=== PATIENT | female | born 1935 | race Caucasian/White ===

== ENCOUNTER → 2016-11-14 | Outpatient (CLI) | payer MEDICARE ==
--- NOTE | 2016-11-15 11:26 | ECHOF ---
Referral Reason:I35.0 aortic stenosis R00.2 palpitations MEASUREMENTS -------- HEIGHT: 132.1 cm WEIGHT: 81.7 kg BP: IVSd: 1.6 cm (0.6 - 1.1) LVIDd: 3.3 cm (3.9 - 5.3) LVPWd: 1.6 cm (0.6 - 1.1) IVSs: 1.9 cm LVIDs: 2.4 cm LVPWs: 1.6 cm Ao Diam: 0.5 cm (2.0 - 3.7) AV Cusp: 2.0 cm (1.5 - 2.6) LA Diam: 2.5 cm (2.7 - 3.8) MV EXCURSION: 5.900 mm (> 18.000) MV EF SLOPE: 26 mm/s (70 - 150) EPSS: 0.9 cm MV E Amaury: 1.30 m/s MV DecT: 199 ms MV A Amaury: 1.19 m/s MV E/A Ratio: 1.09 AV maxP.59 mmHg AV meanP.89 mmHg AR PHT: 346 ms RAP: 5.00 mmHg RVSP: 30.29 mmHg FINDINGS -------- Sinus rhythm. This was a technically good study. There is mild concentric left ventricular hypertrophy. Overall left ventricular systolic function is normal with, an EF between 55 - 60 %. The right ventricle is normal in size and function. The left atrium is normal in size. The right atrium is normal in size. Aortic valve is trileaflet and is moderately thickened. There is mild aortic regurgitation. There is moderate aortic stenosis present. Peak/mean gradient across the Aortic Valve is 26.59mmHg / 18.89mmHg. The mitral valve leaflets are mildly thickened. Mild mitral annular calcification present. Mild tricuspid regurgitation present. The right ventricular systolic pressure, as measured by Doppler, is 30.29mmHg. Pulmonic valve appears structurally normal. The aortic root, ascending aorta and aortic arch are normal. The pericardium is normal. CONCLUSIONS -------- 1. Sinus rhythm. 2. There is moderate aortic stenosis present. 3. Peak/mean gradient across the Aortic Valve is 26.59mmHg / 18.89mmHg. 4. The mitral valve leaflets are mildly thickened. 5. Mild mitral annular calcification present. 6. Mild tricuspid regurgitation present. 7. The right ventricular systolic pressure, as measured by Doppler, is 30.29mmHg. 8. Pulmonic valve appears structurally normal. 9. The aortic root, ascending aorta and aortic arch are normal. 10. The pericardium is normal. 11. This was a technically good study. 12. There is mild concentric left ventricular hypertrophy. 13. Overall left ventricular systolic function is normal with, an EF between 55 - 60 %. 14. The right ventricle is normal in size and function. 15. The left atrium is normal in size. 16. The right atrium is normal in size. 17. Aortic valve is trileaflet and is moderately thickened. 18. There is mild aortic regurgitation. TREATING ENGINEER: Ginna Pisano RDCS
== END | disposition home or self-care (01) ==
LOC: RADECHMAIN 12:42
PROVIDERS: ATTEND Internal Medicine
DX: I08.3 Combined rheumatic disorders of mitral, aortic and tricuspid valves (principal)
CPT/HCPCS: 93270; 93271; 93306

== ENCOUNTER → 2016-12-06 | Outpatient (CLI) | payer MEDICARE ==
[2016-12-06 08:22] LABS: CH 29.8; CHCM 32.5; HDW 2.32; HGB 13.6 gm/dL (11.4-16.0); MCH 29.8 pg (25.0-35.0); MCHC 32.4 g/dL (31.0-37.0); MCV 91.9 fL (80.0-100.0); Mean Platelet Volume 8.2; RBC 4.57 m/uL (3.80-5.40); WBC 6.5 k/uL (3.8-10.6)
[2016-12-06 08:35] LABS: ALT 38 U/L (9-52); AST 24 U/L (14-36); Alkaline Phosphatase 112 U/L (38-126); Anion Gap 12 mmol/L; Blood Urea Nitrogen 16 mg/dL (7-17); Calcium 9.7 mg/dL (8.4-10.2); Carbon Dioxide 28 mmol/L (22-30); Chloride 103 mmol/L (98-107); Cholesterol 155 mg/dL (<200); Glucose 156 mg/dL (74-99); HDL Cholesterol 59 mg/dL (40-60); Non-African American GFR(MDRD) >60 (>60 ml/min/1.73 sqM); Sodium 143 mmol/L (137-145); Total Bilirubin 0.5 mg/dL (0.2-1.3); Total Protein 7.4 g/dL (6.3-8.2); Triglycerides 190 mg/dL (<150)
[2016-12-06 12:46] LABS: Hemoglobin A1C 7.9 % (4.2-6.1)
== END | disposition home or self-care (01) ==
LOC: LABWHC1 07:11
PROVIDERS: ATTEND Internal Medicine Cardiovascular Disease
DX: E78.5 Hyperlipidemia, unspecified (principal); R06.09 Other forms of dyspnea; I25.10 Atherosclerotic heart disease of native coronary artery without angina pectoris
CPT/HCPCS: 36415; 80053; 80061; 83036; 85027

== ENCOUNTER → 2017-03-08 | Outpatient (CLI) | payer MEDICARE ==
[2017-03-08 08:27] LABS: Cholesterol 254 mg/dL (<200); HDL Cholesterol 54 mg/dL (40-60); Triglycerides 259 mg/dL (<150)
== END | disposition home or self-care (01) ==
LOC: LABWHC1 07:23
PROVIDERS: ATTEND Internal Medicine Cardiovascular Disease
DX: E78.5 Hyperlipidemia, unspecified (principal)
CPT/HCPCS: 36415; 80061

== ENCOUNTER 2017-11-19 16:23 | Emergency (ER) | payer MEDICARE ==
[2017-11-19 16:32] VITALS: RESP 18
--- NOTE | 2017-11-19 17:00 | ED ---
General Adult HPI - General Chief complaint: Chest Pain Stated complaint: Chest Pain Time Seen by Provider: 11/19/17 16:39 Source: patient, family, RN notes reviewed, old records reviewed Mode of arrival: wheelchair Limitations: no limitations - History of Present Illness Initial comments: 82-year-old female presents for evaluation of chest pain. Patient states her pain began in her anterior chest after a fall. Patient fell yesterday evening while going outside to adjust a trash can. She slipped on the ice. Patient did strike her head, she was unconscious for 5-10 minutes. She is currently on baby aspirin and Plavix for history of CAD status post stenting. Patient did not call 911, she slept throughout the night at home. She informed her family members today and fall and they urged her to come the emergency department for evaluation. Patient has had no focal weakness. No headache. She does have ecchymosis around her right eye. No vision changes. She had a bloody nose at the time of the fall but this has subsided. Chest pain is sharp in nature, worse with movement. No dull aching or chest pressure. Patient denies any back pain. Denies abdominal pain. Denies lower extremity pain. Denies neck pain. Patient denied any preceding chest pain prior to the fall, no palpitations. - Related Data Home Medications Medication Instructions Recorded Confirmed Carvedilol [Coreg] 6.25 mg PO BID 11/19/17 11/19/17 Clopidogrel [Plavix] 75 mg PO DAILY 11/19/17 11/19/17 Dexlansoprazole [Dexilant] 60 mg PO DAILY 11/19/17 11/19/17 Isosorbide Mononitrate ER [Imdur] 15 mg PO DAILY 11/19/17 11/19/17 Losartan [Cozaar] 25 mg PO DAILY 11/19/17 11/19/17 Naproxen [Naprosyn] 500 mg PO DAILY PRN 11/19/17 11/19/17 Nitroglycerin [Nitroglycerin 1 spray TRANSLINGU Q5M PRN 11/19/17 11/19/17 400MCG [place]] metFORMIN HCL [Glucophage] 500 mg PO BID 11/19/17 11/19/17 Allergies Allergy/AdvReac Type Severity Reaction Status Date / Time butorphanol [From Stadol] Allergy Unknown Verified 11/19/17 16:33 iodine Allergy Unknown Verified 11/19/17 16:33 meperidine [From Demerol] Allergy Unknown Verified 11/19/17 16:33 morphine Allergy Anaphylaxis Verified 11/19/17 16:33 Review of Systems ROS Statement: Those systems with pertinent positive or pertinent negative responses have been documented in the HPI. ROS Other: All systems not noted in ROS Statement are negative. Past Medical History Past Medical History: Diabetes Mellitus History of Any Multi-Drug Resistant Organisms: None Reported Past Surgical History: Appendectomy, Back Surgery, Cholecystectomy, Heart Catheterization With Stent, Hernia Repair, Hysterectomy Additional Past Surgical History / Comment(s): stents x4 Past Psychological History: No Psychological Hx Reported Smoking Status: Never smoker Past Alcohol Use History: None Reported Past Drug Use History: None Reported General Exam Limitations: no limitations General appearance: alert, in no apparent distress Head exam: Present: atraumatic, normocephalic Eye exam: Present: periorbital swelling, periorbital tenderness, other (Right periorbital ecchymosis). Absent: PERRL, EOMI ENT exam: Present: TM's normal bilaterally, other (No epistaxis, no septal hematoma) Neck exam: Present: normal inspection, full ROM. Absent: tenderness, meningismus Respiratory exam: Present: normal lung sounds bilaterally, chest wall tenderness (Right anterior chest wall tenderness with bruising over the right breast). Absent: respiratory distress Cardiovascular Exam: Present: regular rate, normal rhythm GI/Abdominal exam: Present: soft. Absent: distended, tenderness Extremities exam: Present: normal inspection, full ROM. Absent: tenderness Back exam: Present: normal inspection, full ROM. Absent: tenderness, paraspinal tenderness, vertebral tenderness Neurological exam: Present: alert, oriented X3, CN II-XII intact. Absent: motor sensory deficit Psychiatric exam: Present: normal affect, normal mood Skin exam: Present: warm, dry, intact. Absent: cyanosis, diaphoretic Course Vital Signs 11/19/17 16:27 Temperature 97.7 F Pulse Rate 94 Respiratory 18 Rate Blood Pressure 126/64 O2 Sat by Pulse 96 Oximetry Medical Decision Making - Medical Decision Making 82-year-old female presenting with chest pain status post fall 22 hours prior to evaluation. Patient has ecchymosis to the right eye, no bony inability appreciated on exam. Extraocular motions are intact. Patient is alert and oriented 4, neurologic exam is nonfocal. She does have tenderness to the right chest wall and bruising to the right breast. No C-spine tenderness. No pain in the back, abdomen, or lower extremities. She does have some mild tenderness to the right wrist. Wrist x-rays obtained, there is concern for scapholunate tear as well as arthritis. Patient has no tenderness over the scaphoid. She is placed in a wrist splint for comfort. CT brain negative for intracranial hemorrhage. CT cervical spine negative for fracture subluxation. CT of facial bones show soft tissue swelling around the right orbit with no fracture or acute abnormality. There is a transverse processes and maxillary spine, patient does not have tenderness over the maxillary spine. Chest x-ray for rib fracture or pneumothorax. Pelvis x-ray is negative for fracture dislocation. Laboratory studies include CBC, CMP, urinalysis, troponin are all unremarkable. EKG shows normal sinus rhythm with no signs of ischemia. She states fall was approximately 22 hours ago. She is on aspirin and Plavix, she will be observed by her family members over the next 24 hours. They will return to the emergency Department if any worsening or changing symptoms. - Lab Data Result diagrams: 11/19/17 17:11 11/19/17 17:11 Lab Results 11/19/17 11/19/17 11/19/17 Range/Units 17:11 17:11 17:11 WBC 6.4 (3.8-10.6) k/uL RBC 4.29 (3.80-5.40) m/uL Hgb 12.4 (11.4-16.0) gm/dL Hct 38.8 (34.0-46.0) % MCV 90.5 (80.0-100.0) fL MCH 28.9 (25.0-35.0) pg MCHC 32.0 (31.0-37.0) g/dL RDW 13.7 (11.5-15.5) % Plt Count 266 (150-450) k/uL Neutrophils % 68 % Lymphocytes % 23 % Monocytes % 6 % Eosinophils % 2 % Basophils % 1 % Neutrophils # 4.4 (1.3-7.7) k/uL Lymphocytes # 1.5 (1.0-4.8) k/uL Monocytes # 0.4 (0-1.0) k/uL Eosinophils # 0.1 (0-0.7) k/uL Basophils # 0.0 (0-0.2) k/uL PT (9.0-12.0) sec INR (<1.2) APTT (22.0-30.0) sec Sodium (137-145) mmol/L Potassium (3.5-5.1) mmol/L Chloride (98-107) mmol/L Carbon Dioxide (22-30) mmol/L Anion Gap mmol/L BUN (7-17) mg/dL Creatinine (0.52-1.04) mg/dL Est GFR (MDRD) Af Amer (>60 ml/min/1.73 sqM) Est GFR (MDRD) Non-Af (>60 ml/min/1.73 sqM) Glucose (74-99) mg/dL Calcium (8.4-10.2) mg/dL Total Bilirubin (0.2-1.3) mg/dL AST (14-36) U/L ALT (9-52) U/L Alkaline Phosphatase (38-126) U/L Total Creatine Kinase 131 (30-135) U/L CK-MB (CK-2) 2.1 (0.0-2.4) ng/mL CK-MB (CK-2) Rel Index 1.6 Troponin I <0.012 (0.000-0.034) ng/mL Total Protein (6.3-8.2) g/dL Albumin (3.5-5.0) g/dL Urine Color Urine Appearance (Clear) Urine pH (5.0-8.0) Ur Specific [place] (1.001-1.035) Urine Protein (Negative) Urine Glucose (UA) (Negative) Urine Ketones (Negative) Urine Blood (Negative) Urine Nitrite (Negative) Urine Bilirubin (Negative) Urine Urobilinogen (<2.0) mg/dL Ur Leukocyte Esterase (Negative) Urine RBC (0-5) /hpf Urine WBC (0-5) /hpf Ur Squamous Epith Cells (0-4) /hpf Urine Bacteria (None) /hpf Hyaline Casts (0-2) /lpf Urine Mucus (None) /hpf Blood Type O Positive Blood Type Recheck No Antibody Screen NEGATIVE Spec Expiration Date 11/22/2017 - 231011/19/17 11/19/17 11/19/17 Range/Units 17:11 17:11 18:16 WBC (3.8-10.6) k/uL RBC (3.80-5.40) m/uL Hgb (11.4-16.0) gm/dL Hct (34.0-46.0) % MCV (80.0-100.0) fL MCH (25.0-35.0) pg MCHC (31.0-37.0) g/dL RDW (11.5-15.5) % Plt Count (150-450) k/uL Neutrophils % % Lymphocytes % % Monocytes % % Eosinophils % % Basophils % % Neutrophils # (1.3-7.7) k/uL Lymphocytes # (1.0-4.8) k/uL Monocytes # (0-1.0) k/uL Eosinophils # (0-0.7) k/uL Basophils # (0-0.2) k/uL PT 10.2 (9.0-12.0) sec INR 1.0 (<1.2) APTT 21.4 L (22.0-30.0) sec Sodium 142 (137-145) mmol/L Potassium 4.0 (3.5-5.1) mmol/L Chloride 107 (98-107) mmol/L Carbon Dioxide 23 (22-30) mmol/L Anion Gap 12 mmol/L BUN 22 H (7-17) mg/dL Creatinine 0.80 (0.52-1.04) mg/dL Est GFR (MDRD) Af Amer >60 (>60 ml/min/1.73 sqM) Est GFR (MDRD) Non-Af >60 (>60 ml/min/1.73 sqM) Glucose 220 H (74-99) mg/dL Calcium 9.3 (8.4-10.2) mg/dL Total Bilirubin 0.2 (0.2-1.3) mg/dL AST 24 (14-36) U/L ALT 31 (9-52) U/L Alkaline Phosphatase 111 (38-126) U/L Total Creatine Kinase (30-135) U/L CK-MB (CK-2) (0.0-2.4) ng/mL CK-MB (CK-2) Rel Index Troponin I (0.000-0.034) ng/mL Total Protein 6.2 L (6.3-8.2) g/dL Albumin 3.6 (3.5-5.0) g/dL Urine Color Yellow Urine Appearance Cloudy H (Clear) Urine pH 5.5 (5.0-8.0) Ur Specific [place] 1.028 (1.001-1.035) Urine Protein 1+ H (Negative) Urine Glucose (UA) 4+ H (Negative) Urine Ketones Trace H (Negative) Urine Blood Negative (Negative) Urine Nitrite Negative (Negative) Urine Bilirubin Negative (Negative) Urine Urobilinogen 3.0 (<2.0) mg/dL Ur Leukocyte Esterase Negative (Negative) Urine RBC 1 (0-5) /hpf Urine WBC 1 (0-5) /hpf Ur Squamous Epith Cells 11 H (0-4) /hpf Urine Bacteria Moderate H (None) /hpf Hyaline Casts 1 (0-2) /lpf Urine Mucus Few H (None) /hpf Blood Type Blood Type Recheck Antibody Screen Spec Expiration Date Critical Care Time Critical Care Time: Yes Total Critical Care Time: 35 Disposition Clinical Impression: Costalchondritis, Head injury, Concussion Disposition: HOME SELF-CARE Condition: Good Instructions: Concussion (ED), Chest Wall Pain (ED) Referrals: Dandre Jacob MD [Primary Care Provider] - 1-2 days Time of Disposition: 18:45
[2017-11-19 17:39] LABS: Basophils % (A) 1 %; Eosinophils # (A) 0.1 k/uL (0-0.7); Eosinophils % (A) 2 %; HCT 38.8 % (34.0-46.0); HGB 12.4 gm/dL (11.4-16.0); Lymphocytes # (A) 1.5 k/uL (1.0-4.8); Lymphocytes % (A) 23 %; MCH 28.9 pg (25.0-35.0); MCV 90.5 fL (80.0-100.0); Mean Platelet Volume 8.3; Monocytes # (A) 0.4 k/uL (0-1.0); Monocytes % (A) 6 %; Neutrophils # (A) 4.4 k/uL (1.3-7.7); Neutrophils % (A) 68 %; Platelet Count 266 k/uL (150-450); RBC 4.29 m/uL (3.80-5.40); RDW 13.7 % (11.5-15.5); WBC 6.4 k/uL (3.8-10.6)
[2017-11-19 17:46] LABS: ALT 31 U/L (9-52); AST 24 U/L (14-36); Albumin 3.6 g/dL (3.5-5.0); Alkaline Phosphatase 111 U/L (38-126); Anion Gap 12 mmol/L; Blood Urea Nitrogen 22 mg/dL (7-17); Calcium 9.3 mg/dL (8.4-10.2); Carbon Dioxide 23 mmol/L (22-30); Chloride 107 mmol/L (98-107); Glucose 220 mg/dL (74-99); Sodium 142 mmol/L (137-145); Total Bilirubin 0.2 mg/dL (0.2-1.3); Total Protein 6.2 g/dL (6.3-8.2)
[2017-11-19 17:51] LABS: Prothrombin Time 10.2 sec (9.0-12.0)
--- NOTE | 2017-11-19 17:57 | CT ---
EXAMINATION TYPE: CT brain cspine wo con, CT facial bones wo con DATE OF EXAM: 11/19/2017 COMPARISON: NONE HISTORY: Fell, bruised right eye and lower lip CT DLP: 1536.20 (accession [id number]), 603.0 (accession [id number]) mGycm. Automated Exposure Control fo r Dose Reduction was Utilized. TECHNIQUE: CT scan of the head and cervical spine are performed without contrast. CT of the facial edison kristyn is also performed without contrast. FINDINGS: Mild right periorbital preseptal soft tissue swelling is noted. Drusen bodies are seen bi laterally. Globes are intact. Ocular lenses are surgically absent. There is no acute intracranial hem orrhage or midline shift identified. There is diffuse ventricular and sulcal prominence consistent wi th diffuse age-related cerebral atrophy. There is low-attenuation in the periventricular white matte r consistent with chronic small vessel ischemic change. Atherosclerosis is seen in the intracranial v asculature. Cervical spine is visualized in its entirety from C1 through upper thoracic levels and demonstrates s atisfactory alignment without evidence of acute fracture or dislocation. Prevertebral soft tissue ap pears within normal limits. The C1-C2 articulation is unremarkable. Multilevel posterior disc osteop hyte complexes, uncovertebral hypertrophy, and facet arthropathy are seen within the cervical spine. There is a focal reversal of the usual cervical lordosis at C3-6. Some motion and extensive degenerat leslei changes at C5-C7 are seen although no gross evidence of acute fracture is noted. No prevertebral soft tissue swelling. Degenerative narrowing of the atlantodental interval is present. Multilevel spi nal canal stenosis from C4 through 6 is seen. 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 Paranasal sinuses and m astoid air cells are well aerated. External auditory canals are patent and middle air cavities are wi thout fluid. There is a transversely oriented acute nondisplaced fracture of the maxillary spine. Sheth ashley Propecia are intact. Mandibular condyles are located within the mandibular fossa. There is leftwa rd nasal septal deviation. Orbits are intact. Pterygoid plates are unremarkable. IMPRESSION: 1. There is no acute fracture or dislocation evident in the cervical spine. Multilevel degenerative c hanges including focal reversal of the usual cervical cord lordosis and spinal canal stenosis from C4 through C6 are noted. 2. No acute intracranial hemorrhage, mass effect, or midline shift is seen. Diffuse age-related cereb ral atrophy and chronic small vessel ischemic change noted. 3. Acute transversely oriented nondisplaced fracture of the maxillary spine. 4. Right preseptal periorbital soft tissue swelling without evidence of globe rupture or post septal soft tissue swelling. No orbital fracture.
[2017-11-19 17:59] LABS: Creatine Kinase 131 U/L (30-135)
[2017-11-19 18:08] LABS: Partial Thromboplastin Time 21.4 sec (22.0-30.0)
[2017-11-19 18:11] LABS: Creatine Kinase MB 2.1 ng/mL (0.0-2.4); Troponin I <0.012 ng/mL (0.000-0.034)
--- NOTE | 2017-11-19 18:14 | XR ---
EXAMINATION TYPE: XR chest 2V DATE OF EXAM: 11/19/2017 COMPARISON: 09/22/2010 HISTORY: Fall and chest pain TECHNIQUE: Frontal and lateral views of the chest are obtained. FINDINGS: There is no focal air space opacity, pleural effusion, or pneumothorax seen. The cardiac silhouette size is mildly enlarged. The osseous structures are intact. Copious overlying soft tissu es partially extruded the costophrenic angles. Moderate degenerative changes of the acromioclavicular joints and thoracic spine are noted. IMPRESSION: No acute cardiopulmonary process.
--- NOTE | 2017-11-19 18:15 | XR ---
EXAMINATION TYPE: XR pelvis AP view DATE OF EXAM: 11/19/2017 CLINICAL HISTORY: Fall with subsequent pelvic pain. TECHNIQUE: A single AP view of the pelvis is obtained. COMPARISON: None. FINDINGS: There is no acute fracture/dislocation evident in the pelvis. The hip and sacroiliac join ts appear symmetric and unremarkable. The overlying soft tissue appears unremarkable. Degenerative c hanges of the pubic symphysis, femoral acetabular joints, and lumbosacral spine are noted as well as numerous phleboliths within the low pelvis. IMPRESSION: There is no acute fracture or dislocation in the pelvis.
--- NOTE | 2017-11-19 18:18 | XR ---
EXAMINATION TYPE: XR wrist complete RT DATE OF EXAM: 11/19/2017 CLINICAL HISTORY: Fall and right wrist pain. TECHNIQUE: Frontal, lateral and oblique images of the right wrist are obtained. COMPARISON: None FINDINGS: There is no acute fracture/dislocation evident in the right wrist. Severe arthropathy is s een of the right wrist at the carpal carpal joints, radiocarpal joints, and first metacarpal phalange al joint demonstrated as subchondral cysts, and new herniation, subchondral sclerosis, and marginal o steophytes. There is widening of the scapholunate interval measuring 4.6 cm on the frontal image although the marguerite ate does not appear dislocated. Calcification of the triangular fibrocartilage is incidentally noted. Osteophyte is seen from a scaphoid without distal pole, proximal or mid body fracture. The overlying soft tissue appears unremarkable. There is mild erosion of the ulnar styloid. IMPRESSION: 1. No acute fracture in the right wrist. 2. Widening of the scapholunate interval may relate to scapholunate tear. Correlate for point tendern ess and instability. MR could confirm tear. 3. 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 3. Calcification of the triangular fibrocartilage which can be seen in CPPD or other arthropathy.
[2017-11-19 18:41] LABS: Appearance,Urine Cloudy (Clear); Bacteria,Urine Moderate /hpf; Bilirubin,Urine Negative (Negative); Blood,Urine Negative (Negative); Color,Urine Yellow; Glucose,Urine (UA) 4+ (Negative); Hyaline Casts,Urine 1 /lpf (0-2); Ketones,Urine Trace (Negative); Leukocyte Esterase,Urine Negative (Negative); Mucus,Urine Few /hpf; Nitrite,Urine Negative (Negative); PH, Urine 5.5 (5.0-8.0); Protein,Urine 1+ (Negative); RBC,Urine 1 /hpf (0-5); Specific Gravity,Urine 1.028 (1.001-1.035); Squamous Epithelial Cell,Urine 11 /hpf (0-4); WBC,Urine 1 /hpf (0-5)
[2017-11-19 18:50] VITALS: BP 112/62; PULSE 73; TEMP 97.6
== END 2017-11-19 18:50 | disposition home or self-care (01) ==
LOC: EC 16:23
DX: S06.0X1A Concussion with loss of consciousness of 30 minutes or less, initial encounter (principal); S20.211A Contusion of right front wall of thorax, initial encounter; S05.11XA Contusion of eyeball and orbital tissues, right eye, initial encounter; M94.0 Chondrocostal junction syndrome [Tietze]; E11.9 Type 2 diabetes mellitus without complications; I25.10 Atherosclerotic heart disease of native coronary artery without angina pectoris; Z79.02 Long term (current) use of antithrombotics/antiplatelets; Z79.82 Long term (current) use of aspirin; Z79.84 Long term (current) use of oral hypoglycemic drugs; Z79.899 Other long term (current) drug therapy; Z88.5 Allergy status to narcotic agent; Z88.8 Allergy status to other drugs, medicaments and biological substances; Z91.048 Other nonmedicinal substance allergy status; Z95.818 Presence of other cardiac implants and grafts; W00.0XXA Fall on same level due to ice and snow, initial encounter; Y93.89 Activity, other specified; Y92.89 Other specified places as the place of occurrence of the external cause
CPT/HCPCS: 29125; 36415; 70450; 70486; 71046; 72125; 72170; 80053; 81001; 82550; 82553; 84484; 85025; 85610; 85730; 86850; 86900; 86901; 93005; 99291

== ENCOUNTER → 2018-08-21 | Outpatient (CLI) | payer MEDICARE ==
--- NOTE | 2018-08-21 18:55 | US ---
EXAMINATION TYPE: US carotid duplex BILAT DATE OF EXAM: 08/21/2018 COMPARISON: NONE CLINICAL HISTORY: R09.89 Other specified symptoms and signs.... EXAM MEASUREMENTS: RIGHT: Peak Systolic Velocity (PSV) cm/sec ----- Right CCA: 70.9 ----- Right ICA: 79.0 ----- Right ECA: 53.1 ICA/CCA ratio: 1.1 RIGHT: End Diastole cm/sec ----- Right CCA: 14.4 ----- Right ICA: 25.7 ----- Right ECA: 0 LEFT: Peak Systolic Velocity (PSV) cm/sec ----- Left CCA: 101.6 ----- Left ICA: 101.6 ----- Left ECA: 45.1 ICA/CCA ratio: 1.0 LEFT: End Diastole cm/sec ----- Left CCA: 22.5 ----- Left ICA: 20.8 ----- Left ECA: 0 VERTEBRALS (direction of flow): Right Vertebral: Antegrade Left Vertebral: Antegrade Rhythm: Normal No significant stenosis seen IMPRESSION: There is antegrade flow in the vertebral arteries. Images and measurements suggest up to 25% stenosis in both internal carotid arteries. Criteria for Assigning % of Stenosis / Diameter reduction (Estimation based on the indirect measurements of the internal carotid artery velocities (ICA PSV). 1. Normal (no stenosis)=ICA PSV < 125 cm/s: ratio < 2.0: ICA EDV<40 cm/s. 2. Less than 50% stenosis=ICA PSV < 125 cm/s: ratio < 2.0: ICA EDV<40 cm/s. 3. 50 to 69% stenosis=ICA PSV of 125 to 230 cm/s: ration 2.0 ? 4.0: ICA EDV 40-100 cm/s. 4. Greater than 70% stenosis to near occlusion= ICA PSV > 230 cm/s: ratio > 4.0: ICA EDV > 100 cm/s. 5. Near occlusion= ICA PSV velocities may be low or undetectable: variable ratio and ICA EDV. 6. Total occlusion=unable to detect flow.
== END | disposition home or self-care (01) ==
LOC: RADUSMAIN 17:09
PROVIDERS: ATTEND Internal Medicine Cardiovascular Disease
DX: R09.89 Other specified symptoms and signs involving the circulatory and respiratory systems (principal)
CPT/HCPCS: 93880

== ENCOUNTER → 2019-04-15 | Outpatient (CLI) | payer MEDICARE ==
[2019-04-15 08:01] LABS: Basophils % (A) 0 %; Eosinophils # (A) 0.3 k/uL (0-0.7); Eosinophils % (A) 4 %; HCT 36.9 % (34.0-46.0); HGB 11.6 gm/dL (11.4-16.0); Hypochromasia Slight; Lymphocytes # (A) 1.7 k/uL (1.0-4.8); Lymphocytes % (A) 21 %; MCH 27.5 pg (25.0-35.0); MCHC 31.4 g/dL (31.0-37.0); MCV 87.4 fL (80.0-100.0); Mean Platelet Volume 6.9; Monocytes # (A) 0.5 k/uL (0-1.0); Monocytes % (A) 6 %; Neutrophils # (A) 5.6 k/uL (1.3-7.7); Neutrophils % (A) 68 %; Platelet Count 368 k/uL (150-450); RBC 4.22 m/uL (3.80-5.40); RDW 14.2 % (11.5-15.5); WBC 8.2 k/uL (3.8-10.6)
== END | disposition home or self-care (01) ==
LOC: LABWHC1 07:12
PROVIDERS: ATTEND Internal Medicine Cardiovascular Disease
DX: D64.9 Anemia, unspecified (principal); Z98.61 Coronary angioplasty status
CPT/HCPCS: 36415; 85025

== ENCOUNTER 2020-01-08 13:01 | Inpatient (IN) | payer MEDICARE ==
[2020-01-08] MEDS ORDERED: MORPHINE SULFATE 4 MG/ML SYRINGE IVP STA (13:15)
[2020-01-08] MEDS ORDERED: ATORVASTATIN 80 MG TAB PO STA (13:16)
[2020-01-08] MEDS ORDERED: NITROGLYCERIN SL TABS 0.4 MG TAB SUBLINGUAL STA (13:17)
[2020-01-08] MEDS ORDERED: HEPARIN SODIUM,PORCINE 5,000 UNIT/ML 1 ML VIAL SQ STA (13:17)
--- NOTE | 2020-01-08 13:20 | ED ---
Chest Pain HPI - General Chief Complaint: Chest Pain Stated Complaint: Chest pain Time Seen by Provider: 01/08/20 13:01 Source: patient, EMS, RN notes reviewed Mode of arrival: EMS Limitations: no limitations - History of Present Illness Initial Comments: This is an 84-year-old female history of pericarditis many years ago and a aortic valve replacement this past year who presents with complaints the onset of anterior chest wall pain this started around 12 noon today. She states it radiated to her back. It was very severe /10 severity she was given 324 aspirin as well as nitroglycerin spray at home and nitro by EMS personnel. No relief in the pain she has however states is down to about 9-9-//10. She had some nausea with it some sweats with it. Some shortness of breath with it. 12- lead EKG done by personnel shows some evidence of ST elevation in the anterior leads. Patient has had prior cardiac stents. MD Complaint: chest pain - Related Data Home Medications Medication Instructions Recorded Confirmed Carvedilol [Coreg] 6.25 mg PO BID 11/19/17 11/19/17 Clopidogrel [Plavix] 75 mg PO DAILY 11/19/17 11/19/17 Dexlansoprazole [Dexilant] 60 mg PO DAILY 11/19/17 11/19/17 Isosorbide Mononitrate ER [Imdur] 15 mg PO DAILY 11/19/17 11/19/17 Losartan [Cozaar] 25 mg PO DAILY 11/19/17 11/19/17 Naproxen [Naprosyn] 500 mg PO DAILY PRN 11/19/17 11/19/17 Nitroglycerin [Nitroglycerin 1 spray TRANSLINGU Q5M PRN 11/19/17 11/19/17 400MCG [place]] metFORMIN HCL [Glucophage] 500 mg PO BID 11/19/17 11/19/17 Allergies Allergy/AdvReac Type Severity Reaction Status Date / Time butorphanol [From Stadol] Allergy Unknown Verified 11/19/17 16:33 iodine Allergy Unknown Verified 11/19/17 16:33 meperidine [From Demerol] Allergy Unknown Verified 11/19/17 16:33 morphine Allergy Anaphylaxis Verified 11/19/17 16:33 Review of Systems ROS Statement: Those systems with pertinent positive or pertinent negative responses have been documented in the HPI. ROS Other: All systems not noted in ROS Statement are negative. EKG Findings - EKG Results: EKG: interpreted by [facility], sinus rhythm (EKG shows evidence of a acute inferior wall STEMI elevation of the ST segment in V2 V3 V4. Ventricular rate 93. Interval 184 QRS duration 64 DT says QTC 320/407 this is compared with that submitted from EMS which is consistent this also does compared to an EKG dated which showed none of the above ST changes.) Past Medical History Past Medical History: Diabetes Mellitus, Myocardial Infarction ([place]) History of Any Multi-Drug Resistant Organisms: None Reported Past Surgical History: Appendectomy, Back Surgery, Cholecystectomy, Heart Catheterization With Stent, Hernia Repair, Hysterectomy Additional Past Surgical History / Comment(s): stents x4 Past Psychological History: No Psychological Hx Reported Smoking Status: Never smoker Past Alcohol Use History: None Reported Past Drug Use History: None Reported General Exam - General Exam Comments Initial Comments: This is a well up well-nourished awake alert oriented 3 female she is in obvious distress. Limitations: no limitations General appearance: alert, anxious, in distress Head exam: Present: atraumatic, normocephalic, normal inspection Eye exam: Present: normal appearance, PERRL, EOMI. Absent: scleral icterus, conjunctival injection, periorbital swelling ENT exam: Present: normal exam, mucous membranes moist Neck exam: Present: normal inspection. Absent: tenderness, meningismus, lymphadenopathy Respiratory exam: Present: normal lung sounds bilaterally. Absent: respiratory distress, wheezes, rales, rhonchi, stridor Cardiovascular Exam: Present: regular rate, normal rhythm, normal heart sounds. Absent: systolic murmur, diastolic murmur, rubs, gallop, clicks GI/Abdominal exam: Present: soft, normal bowel sounds. Absent: distended, tenderness, guarding, rebound, rigid Extremities exam: Present: normal inspection, full ROM, normal capillary refill. Absent: tenderness, pedal edema, joint swelling, calf tenderness Back exam: Present: normal inspection Neurological exam: Present: alert, oriented X3, CN II-XII intact Psychiatric exam: Present: normal affect, anxious Skin exam: Present: warm, dry, intact, normal color. Absent: rash Course Vital Signs 01/08/20 01/08/20 13:05 13:14 Temperature 98.2 F Pulse Rate 92 Respiratory 20 20 Rate Blood Pressure 170/93 O2 Sat by Pulse 98 Oximetry - Reevaluation(s) Reevaluation #1: 01/08/20 13:19 Dr. King from cardiology did come the emergency department see the patient. I was contacted. The patient will go to the [facility]. Chest Pain MDM - MDM X-ray was reviewed no evidence of cardiomegaly and postoperative changes. Patient was seen in the emergency department by Dr. King from cardiology patient was taking up to the [facility] further evaluation. A catheterization and appropriate treatment. I did discuss the case also with Dr. Monet who does cover Dr. Jacob who is the patient's primary doctor. Patient is ALLERGIC to morphine and has problems with that a lot and she was given more nitroglycerin in the emergency department. She was given IV heparin. Critical Care Time Critical Care Time: Yes Critical Care Time: 32 minutes of critical care time which includes initial presentation with history physical x-ray labs. This includes discussion with paramedics review of old charting available discussed with cardiology discussion with the admitting physician multiple reevaluation the patient. Discussed with cardiology and initial admission orders. Disposition Clinical Impression: ST elevation myocardial infarction (STEMI), Chest pain, Acute coronary syndrome Disposition: ADMITTED IP TO THIS HOSP Condition: Serious Referrals: None,Stated [REFERRING] - 1-2 days
--- NOTE | 2020-01-08 13:30 | XR ---
EXAMINATION TYPE: XR chest 1V portable DATE OF EXAM: 01/08/2020 COMPARISON: 11/19/2017 HISTORY: Chest pain TECHNIQUE: Single frontal view of the chest is obtained. FINDINGS: The heart is enlarged and there is postoperative change. Coarsened interstitium with no pl eural effusion or consolidation. Interstitium stable. Diffuse osteopenia with arthropathy of the shou lders. IMPRESSION: 1. Cardiomegaly with postoperative change suggestive of a ascending aortic stent. Coarsened interstit ium appears stable may represent degree of chronic underlying interstitial lung disease or congestion .
[2020-01-08] MEDS ORDERED: LIDOCAINE 1% INJ 10MG/ML (20 ML MDV) SQ ONE (13:42)
[2020-01-08] MEDS ORDERED: MIDAZOLAM 2 MG/2 ML VIAL IVP ONE (13:42)
[2020-01-08 13:43] LABS: Albumin 3.6 g/dL (3.5-5.0); Calcium 8.6 mg/dL (8.4-10.2); Potassium 4.9 mmol/L (3.5-5.1); Total Bilirubin 0.2 mg/dL (0.2-1.3); Total Protein 6.5 g/dL (6.3-8.2)
[2020-01-08] MEDS ORDERED: BIVALIRUDIN 250 MG in SODIUM CHLORIDE 0.9% 50 ML IV ONE (13:44)
[2020-01-08] MEDS ORDERED: BIVALIRUDIN BOLUS 250 MG/50 ML IV ONE (13:44)
[2020-01-08 13:45] LABS: Basophils % (A) 1 %; Eosinophils # (A) 0.2 k/uL (0-0.7); Eosinophils % (A) 3 %; HCT 31.9 % (34.0-46.0); HGB 9.5 gm/dL (11.4-16.0); Hypochromasia Moderate; Lymphocytes # (A) 0.9 k/uL (1.0-4.8); Lymphocytes % (A) 17 %; MCH 23.5 pg (25.0-35.0); MCHC 29.8 g/dL (31.0-37.0); MCV 78.8 fL (80.0-100.0); Mean Platelet Volume 7.5; Monocytes # (A) 0.3 k/uL (0-1.0); Monocytes % (A) 6 %; Neutrophils # (A) 3.9 k/uL (1.3-7.7); Neutrophils % (A) 72 %; Platelet Count 341 k/uL (150-450); RBC 4.05 m/uL (3.80-5.40); RDW 15.5 % (11.5-15.5); WBC 5.5 k/uL (3.8-10.6)
[2020-01-08] MEDS ORDERED: IV FLUID CONTINUATION 1,000 ML IV ONE (13:49)
[2020-01-08] MEDS ORDERED: methylPREDNISolone SOD SUCCI 125 MG/2 ML VIAL ONE (13:51)
[2020-01-08] MEDS ORDERED: diphenhydrAMINE 50 MG/ML 1 ML VIAL ONE (13:51)
[2020-01-08] MEDS ORDERED: IOPAMIDOL-370 125ML BTL INJ ONE (13:54)
[2020-01-08] MEDS ORDERED: NITROGLYCERIN 1000MCG/10ML SYRINGE INTRACORON ONE (13:54)
[2020-01-08] MEDS ORDERED: methylPREDNISolone SOD SUCCI 125 MG/2 ML VIAL IV ONE (13:54)
[2020-01-08] MEDS ORDERED: TICAGRELOR 90 MG TAB PO ONE (13:54)
[2020-01-08] MEDS ORDERED: diphenhydrAMINE 50 MG/ML 1 ML VIAL IVP ONE (13:54)
--- NOTE | 2020-01-08 13:54 | P.CRDCN ---
History of Present Illness Consult date: 01/08/20 Chief complaint: Anterior STEMI History of present illness: Is is an 84-year-old female who follows with Dr. Butler out of [facility] for her cardiac needs. She states that she has a history of coronary artery disease with multiple stent placements in the past, aortic valve replacement, hypertension, Diabetes, hyperlipidemia, who presented to the emergency room via EMS because of chest discomfort. According to the patient around noon today she developed significant midsternal chest pressure and heaviness which she described as a 10 out of 10, she had associated diaphoresis and nausea. EMS was called, patient received an aspirin on their arrival as well as a sublingual nitroglycerin. Pain on arrival to the emergency room and was found to an 8 or 9. Her EKG showed a normal sinus rhythm with ST elevation noted in the anterior leads. The patient's home medications include Glucophage 500 twice a day, nitro spray, Naprosyn when necessary, Cozaar 25 mg daily, Imdur 15 mg daily, Plavix 75 mg daily, Coreg 6.25 mg twice a day. Patient's ALLERGIES, iodine, Demerol, morphine. Blood pressure 170/90 with a heart rate in the 90s, 98% on room air. Temperature 98.2. White blood cell count 5.5, hemoglobin 9.5, platelet count 341. Sodium 137, potassium 4.9, BUN 18, creatinine 0.9. Troponin not available yet. Patient was advised to undergo emergent cardiac catheterization, the risks and the benefits were explained to the patient in detail. She received aspirin, Lipitor 80, heparin bolus, and sublingual nitroglycerin. Past Medical History Past Medical History: Diabetes Mellitus, Myocardial Infarction ([place]) History of Any Multi-Drug Resistant Organisms: None Reported Past Surgical History: Appendectomy, Back Surgery, Cholecystectomy, Heart Catheterization With Stent, Hernia Repair, Hysterectomy Additional Past Surgical History / Comment(s): stents x4 Past Psychological History: No Psychological Hx Reported Smoking Status: Never smoker Past Alcohol Use History: None Reported Past Drug Use History: None Reported Medications and Allergies Home Medications Medication Instructions Recorded Confirmed Type Carvedilol [Coreg] 6.25 mg PO BID 11/19/17 11/19/17 History Clopidogrel [Plavix] 75 mg PO DAILY 11/19/17 11/19/17 History Dexlansoprazole [Dexilant] 60 mg PO DAILY 11/19/17 11/19/17 History Isosorbide Mononitrate ER [Imdur] 15 mg PO DAILY 11/19/17 11/19/17 History Losartan [Cozaar] 25 mg PO DAILY 11/19/17 11/19/17 History Naproxen [Naprosyn] 500 mg PO DAILY PRN 11/19/17 11/19/17 History Nitroglycerin [Nitroglycerin 1 spray TRANSLINGU Q5M PRN 11/19/17 11/19/17 History 400MCG [place]] metFORMIN HCL [Glucophage] 500 mg PO BID 11/19/17 11/19/17 History Allergies Allergy/AdvReac Type Severity Reaction Status Date / Time butorphanol [From Stadol] Allergy Unknown Verified 11/19/17 16:33 iodine Allergy Unknown Verified 11/19/17 16:33 meperidine [From Demerol] Allergy Unknown Verified 11/19/17 16:33 morphine Allergy Anaphylaxis Verified 11/19/17 16:33 Physical Exam Vitals: Vital Signs Temp Pulse Resp BP Pulse Ox 01/08/20 13:05 98.2 F 92 20 170/93 98 Intake and Output 01/07/20 01/08/20 01/08/20 22:59 06:59 14:59 Other: Weight 77.111 kg PHYSICAL EXAMINATION: GENERAL: 84-year-old female, complaining of moderate to severe midsternal chest pressure at the time of my examination HEENT: Head is atraumatic, normocephalic. Pupils equal, round. Sclera anicteric. Conjunctiva are clear. Mucous membranes of the mouth are moist. Neck is supple. There is no elevated jugular venous pressure. No carotid bruit is heard. HEART EXAMINATION: Heart S1 S2 1 systolic murmur is heard CHEST EXAMINATION: Lungs are clear anteriorly . ABDOMEN: Soft, nontender. Bowel sounds are heard. No organomegaly noted. EXTREMITIES: 2+ peripheral pulses with no evidence of peripheral edema and no calf tenderness noted. NEUROLOGIC patient is awake, alert and oriented 3 . . Results Intake and Output 01/07/20 01/08/20 01/08/20 22:59 06:59 14:59 Other: Weight 77.111 kg Patient Weight 01/09/20 06:59 Weight 77.111 kg EKG Interpretations (text) EKG shows a normal sinus rhythm with anterior ST elevation. Assessment and Plan Plan: Assessment and plan #[address] elevation myocardial infarction #2 history of coronary artery disease with prior stent placements #3 history of aortic valve replacement #4 hypertension #5 hyperlipidemia #6 diabetes Plan The patient was taken emergently to the cardiac catheterization lab. Further recommendations will be based on the findings and the patient's clinical course. DNP note has been reviewed, I agree with a documented findings and plan of care. Patient was seen and examined.
[2020-01-08 14:04] LABS: INR 0.9 (<1.2); Prothrombin Time 9.6 sec (9.0-12.0)
[2020-01-08] MEDS ORDERED: METOPROLOL TARTRATE 5 MG/5 ML VIAL IVP ONE ×3 (14:04→14:20)
[2020-01-08] MEDS ORDERED: IOPAMIDOL-370 100ML BTL INJ ONE (14:11)
[2020-01-08 14:12] LABS: Creatine Kinase MB 1.5 ng/mL (0.0-2.4)
[2020-01-08 14:17] LABS: Troponin I 0.043 ng/mL (0.000-0.034)
[2020-01-08 14:19] LABS: Partial Thromboplastin Time 21.7 sec (22.0-30.0)
[2020-01-08] MEDS ORDERED: ZOLPIDEM 5 MG TAB PO PRN (14:19)
[2020-01-08] MEDS ORDERED: MAG HYDROX/AL HYDROX/SIMETH 30 ML CUP PO PRN (14:19)
[2020-01-08] MEDS ORDERED: RX INFO: IV CONTRAST WAS GIVEN 1 EACH MISC MISCELLANE PRN (14:19)
[2020-01-08] MEDS ORDERED: NITROGLYCERIN SL TABS 0.4 MG TAB SUBLINGUAL PRN (14:19)
[2020-01-08] MEDS ORDERED: ATROPINE SULFATE 0.1 MG/ML 10ML SYRINGE IV PRN (14:19)
[2020-01-08] MEDS ORDERED: SODIUM CHLORIDE 0.9% 1,000 ML IV SCH (14:30)
[2020-01-08 14:41] LABS: Glucose,Whole Blood 192 mg/dL (75-99)
[2020-01-08 15:17] VITALS: BMI 34.3
--- NOTE | 2020-01-08 15:17 | CC ---
CARDIAC CATHETERIZATION REPORT Ms. Chavarria is an 84-year-old female, status post multiple stenting done at [facility] by Dr. Plummer, history of TAVR who presented with an acute episode of chest discomfort associated with ST-segment elevation anteriorly consistent with an acute anterior myocardial infarction. In view of that, recommendation made regarding cardiac catheterization. The procedures, risks, and complication were discussed with the patient who is in full understanding and agreement. PROCEDURE: Patient was brought to bundle tier and labeler. She received Versed and Benadryl and after achieving moderate conscious sedated state, using Xylocaine anesthesia and Seldinger technique, a 6-Armenian sheath was introduced in the right femoral artery. Selective left groin angiography performed using 6-Armenian FR4 guiding catheter. After obtaining images of the left coronary system and performing angioplasty and stenting, images of the right coronary system was obtained using 6-Armenian 4 bend right Josh catheter. Multiple views of the coronary artery, including hemiaxial views were obtained. Following that, catheter and sheaths were removed. Hemostasis was obtained with deployment of an Angio- Seal. There was no immediate complication. Patient is returned to her room in stable condition. FINDINGS: LEFT MAIN: This is a large-sized vessel, bifurcating into left circumflex, left anterior descending artery. Left main coronary artery has no evidence of high-grade stenosis. LEFT ANTERIOR DESCENDING ARTERY: This vessel is totally occluded in the mid segment after the takeoff of the septal home health scheduler. Stent shadow was noted and appears to be acute occlusion of the stent. LEFT CIRCUMFLEX: This is a nondominant vessel, giving rise to a large obtuse marginal branch. The proximal left circumflex has a stent that is patent. There is a second obtuse marginal branch that has a 90% stenosis. The vessel beyond it is small in caliber. RIGHT CORONARY ARTERY: This is a large dominant vessel, bifurcating distally into PDA, posterolateral segment and branches. The right coronary artery is tortuous in mid segment, has mild intimal disease without any evidence of high-grade stenosis. LEFT VENTRICULOGRAM: Left ventriculogram was not performed. FLUOROSCOPY: Fluoroscopy revealed evidence of a TAVR valve. CONCLUSION: 1. Acutely occluded mid LAD in the site of prior stenting. 2. Severe stenosis in the second obtuse marginal branch. 3. Evidence of TAVR. RECOMMENDATION: In view of finding anatomy, I recommend proceeding with angioplasty and stenting of the LAD. The procedures, risks, and complications were discussed with the patient who is in full understanding and agreement. MMJEREMIEL / IJN: [id number] /
--- NOTE | 2020-01-08 15:24 | LTR ---
DATE OF SERVICE: 01/08/2020 RE: Jasmin Chavarria Dear Dr. Jacob; I had the pleasure to perform cardiac catheterization and coronary angioplasty on Mrs. Chavarria at [facility] on January 08, 2020 and a full copy of the procedure note will be forwarded to you. In brief, she presented with an acute anterior myocardial infarction, underwent successful stenting of that vessel, using a drug-eluding stent. I am hopeful that this procedure will stabilize her status. Thank you again for allowing me to participate in this patient's care. Please feel free to call for any questions. Sincerely, MD MICHELLE Null / TWINN: [id number] /
--- NOTE | 2020-01-08 15:24 | PTCA ---
PERCUTANEOUSTRANS CORORONARY ANGIOGRAPHY Mrs. Chavarria is an 84-year-old female with known history of coronary artery disease and status post TAVR, who presented with an acute anterior myocardial infarction, underwent cardiac catheterization, was found to have totally occluded LAD. In view of that, recommendation was made regarding angioplasty and stenting. The procedures, risks, and complication were discussed with the patient who is in full understanding and agreement. PROCEDURE: Using the 6-Kazakh FR4 guiding catheter, a 0.014 balanced medium weight J-wire was advanced across the lesion and positioned distally with the help of a Fine Cross catheter. Following that, the Fine Cross was removed and a 2.5 x 12 mm Trek balloon was advanced and inflations were done at maximum of 10 atmospheres. Following that, the balloon was removed and a 2.75 x 15 mm Xience Deneen stent was deployed post- dilated at 16 atmospheres. The balloon withdrawn proximally and one inflation of 18 atmospheres was done. Following that, the balloon was removed and a 2.0 x 12 mm Trek balloon was advanced to the apex and one inflation at 8 atmospheres was done. After the last inflation, after appropriate wait, the balloon and the guidewire were withdrawn back in the guiding catheter. Images were obtained and repeated. Those images reveal stable successful stenting. At that point, the guiding catheter, the balloon and the guidewire were removed, images of the right coronary system were obtained. Following that, catheter and sheath were removed. Hemostasis was obtained with deployment of an Angio-Seal. There was no immediate complication. Patient is returned to her room in stable condition. Of note, the patient received Angiomax per protocol as well as oral loading dose of Brilinta. She had improvement in her chest discomfort as well as her EKG changes. RESULTS: Successful stenting of the mid LAD with reduction of stenosis from 100% to 0%. The vessel has diffuse disease distally. RECOMMENDATION: 1. Patient was continued on aspirin, Brilinta, beta susanne, angiotensin receptor susanne and statin. The importance of dual antiplatelet treatment were discussed with the patient and her family who are in full understanding and agreement. 2. Duration of the procedure is 45 minutes. MMODL / IJN: [id number] / JAG
[2020-01-08] MEDS: CARVEDILOL 6.25 MG TAB PO SCH (17:08)
[2020-01-08] MEDS ORDERED: IPRATROPIUM-ALBUTEROL 3 ML NEB INHALATION PRN (19:07)
[2020-01-08] MEDS: IPRATROPIUM-ALBUTEROL 3 ML NEB INHALATION SCH (19:37)
--- NOTE | 2020-01-08 19:45 | HP ---
HISTORY AND PHYSICAL CHIEF COMPLAINT: Chest pain. HISTORY OF PRESENT ILLNESS: This 84 old woman with a past medical history of diabetes, myocardial infarction, back surgery, cholecystectomy, CAD, stent, being followed by Dr. Jacob in the outpatient setting, was complaining of chest discomfort this afternoon. The patient also had aortic valve replacement pericardiectomy previously. Her pain started about 12 noon. It was felt in the anterior part of the chest, 10/10 in intensity. Patient was given aspirin, nitroglycerin spray by EMT personnel and the patient was taken to [facility] and admitted for further evaluation and treatment. The troponin was found to be 0.043. The EKG showed acute FI-jdogbyu-mcmndsvst infarction with some Q-waves in the anterior leads. The patient underwent cardiac catheterization by Dr. Chavira which showed LAD stenosis. Stenting of the mid LAD was done with stenosis reduction from 100% to 0%. The patient is being closely monitored in the ICU at this time. There is no history of any fever, rigor or chills. No history of headache, loss of consciousness, seizures. Patient also had shortness of breath with COPD, according to the family. The patient had significant exposure to asbestos and other solvents, according to the family, even though the patient never smoked. PAST MEDICAL HISTORY: History of COPD, diabetes mellitus, history of myocardial infarction, appendectomy, back surgery, CAD with stent. HOME MEDICATIONS: 1. Glucophage 500 mg p.o. t.i.d. 2. Naprosyn 500 mg b.i.d. 3. Cozaar 25 mg daily. 4. Amaryl 1 mg before breakfast. 5. Coreg 3.125 mg b.i.d. 6. Dexilant 60 mg daily. 7. Plavix 75 mg p.o. daily. ALLERGIES: IODINE, DEMEROL, MORPHINE, STADOL. FAMILY HISTORY: No history of heart disease or strokes in the family. SOCIAL HISTORY: No history of smoking, but environmental exposure, as previously mentioned. REVIEW OF SYSTEMS: ENT: No diminished hearing. No diminished vision. CARDIOVASCULAR SYSTEM: As mentioned earlier. RESPIRATORY SYSTEM: As mentioned earlier. GI: No nausea, vomiting. : No dysuria or retention. NERVOUS SYSTEM: No numbness, weakness. ALLERGY/IMMUNOLOGY: Asthma. MUSCULOSKELETAL: As mentioned earlier. HEMATOLOGY/ONCOLOGY: No history of anemia. ENDOCRINE: No history of diabetes mellitus, hypothyroidism. CONSTITUTIONAL: As mentioned earlier. DERMATOLOGY: Negative. RHEUMATOLOGY: Negative. PSYCHIATRY: As mentioned earlier. PHYSICAL EXAMINATION: Patient alert and oriented x3. Pulse is 92, blood pressure 159/89, respiration 16, temperature 98.4, pulse ox 97% on 2 L, HEENT: Conjunctivae normal. NECK: No jugular venous distention. CARDIOVASCULAR SYSTEM: S1, S2 muffled. No S3. No S4. No murmur. No thrills. RESPIRATORY SYSTEM: Breath sounds diminished at the bases. A few rhonchi. No crackles. ABDOMEN: Soft, non-tender. No mass palpable. LEGS: No edema. No swelling. NERVOUS SYSTEM: Higher functions as mentioned earlier. Moves all 4 limbs. No focal motor or sensory deficit. LYMPHATICS: No lymph node palpable in neck, axillae or groin. SKIN: No ulcer, rash, bleeding. JOINTS: No active deforming arthropathy. LABS: WBC 5.2, hemoglobin 9.5, MCV 78.8 and INR is 0.9. Sodium 137, potassium 4.9. Glucose 266, Troponin 0.043. ASSESSMENT: 1. Acute anterior wall myocardial infarction, ST-segment elevation, status post cardiac catheterization and stenting of the left anterior descending coronary artery. 2. Troponin 0.043. 3. Asthma, chronic obstructive pulmonary disease. 4. Anemia, microcytic; undetermined etiology. 5. Diabetes mellitus, type 2. 6. History of pericardiectomy and aortic valve replacements. 7. History of multiple stents. 8. History of cholecystectomy. 9. History of back surgery, degenerative joint disease. 10.History of hysterectomy. 11.History of stents x4. 12.Obesity with body mass index of 34.3. 13.FULL CODE. RECOMMENDATIONS AND DISCUSSION: In this 84-year-old woman who presented with multiple complex medical issues, I would recommend to continue the current medications, continue symptomatic treatment. Otherwise at this time dual antiplatelet treatment, Lipitor. I would also recommend bronchodilators, proton pump inhibitors, DVT prophylaxis. Will follow the patient closely with Cardiology. Prognosis guarded. Further recommendations to follow. Discussed with the family and the patient at length. A copy of this dictation is being forwarded to Dr. Cota, who is the primary physician. MMODL / IJN: [id number] /
[2020-01-08] MEDS: TICAGRELOR 90 MG TAB PO SCH (20:46)
[2020-01-08] MEDS: ATORVASTATIN 80 MG TAB PO SCH (20:46)
[2020-01-08 20:50] LABS: Glucose,Whole Blood 199 mg/dL (75-99)
[2020-01-08] MEDS: INSULIN ASPART (NovoLOG) 100 UNIT/ML VIAL SQ SCH (21:00)
[2020-01-08] MEDS ORDERED: ALPRAZolam 0.25 MG TAB PO STA (23:59)
[2020-01-09 05:00] LABS: Basophils % (A) 0 %; Eosinophils % (A) 0 %; HCT 34.4 % (34.0-46.0); HGB 10.2 gm/dL (11.4-16.0); Hypochromasia Moderate; Lymphocytes # (A) 0.8 k/uL (1.0-4.8); Lymphocytes % (A) 7 %; MCH 23.3 pg (25.0-35.0); MCHC 29.6 g/dL (31.0-37.0); Mean Platelet Volume 7.1; Monocytes # (A) 0.5 k/uL (0-1.0); Monocytes % (A) 4 %; Neutrophils # (A) 10.2 k/uL (1.3-7.7); Neutrophils % (A) 88 %; Platelet Count 318 k/uL (150-450); RBC 4.36 m/uL (3.80-5.40); RDW 15.6 % (11.5-15.5); WBC 11.6 k/uL (3.8-10.6)
[2020-01-09 05:11] LABS: Calcium 8.8 mg/dL (8.4-10.2); Potassium 4.3 mmol/L (3.5-5.1)
[2020-01-09 05:40] LABS: Magnesium 1.7 mg/dL (1.6-2.3)
[2020-01-09] MEDS: IPRATROPIUM-ALBUTEROL 3 ML NEB INHALATION SCH ×3 (07:11→19:19)
[2020-01-09] MEDS ORDERED: SODIUM CHLORIDE 0.9% 500 ML 500 ML IV SCH (07:30)
--- NOTE | 2020-01-09 08:11 | PN ---
PROGRESS NOTE Mrs. Chavarria is an 84-year-old female who has a history of TAVR, history of multiple percutaneous revascularizations who presented yesterday with an acute anterior myocardial infarction. She has a history of hypertension, hyperlipidemia, and diabetes mellitus. She underwent stenting for totally occluded LAD. She has mild dyspnea this morning, but has no chest pain. She had no dizziness or palpitation. She is complaining predominantly of left hip discomfort. Hemodynamically, she is in sinus mechanism with no evidence of ventricular ectopic activity. She continues to be on aspirin once a day, Brilinta 90 mg twice a day, Lipitor 80 mg daily, Coreg 6.25 mg twice a day, losartan 25 mg daily, and Aldactone 25 mg daily. PHYSICAL EXAMINATION: Blood pressure 140/70 with the heart rate in the 80s. LUNGS: A few crackles at the bases. HEART: Regular rate and rhythm. S1, S2. No S3 with a systolic murmur. No diastolic murmur. ABDOMEN: Soft, nontender. Positive bowel sounds. No organomegaly. EXTREMITIES: No edema. RIGHT GROIN: No hematoma. LAB DATA: Lab data revealed a BUN and creatinine of 17 and 0.83, potassium 4.3. Her cholesterol is 214, LDL of 144, hemoglobin 10.2. Her peak troponin is 134. IMPRESSION: 1. Status post anterior myocardial infarction with stenting of the left anterior descending artery. 2. Status post multiple stenting in the past down at [facility]. 3. History of TAVR. 4. History of hypertension. 5. Hyperlipidemia. 6. Diabetes mellitus. RECOMMENDATION: At this time, I will increase the dose of her angiotensin receptor susanne and will add diuretic to her regimen. I will obtain echocardiogram with Doppler. Increase her activity gradually and depending on her progress, further recommendation will be made. MMODL / IJN: [id number] /
[2020-01-09] MEDS: INSULIN ASPART (NovoLOG) 100 UNIT/ML VIAL SQ SCH ×4 (08:44→21:29)
[2020-01-09] MEDS: ASPIRIN 81 MG PO SCH (08:49)
[2020-01-09] MEDS: PANTOPRAZOLE 40 MG TABLET PO SCH (08:49)
[2020-01-09] MEDS: GLIMEPIRIDE 1 MG TAB PO SCH (08:49)
[2020-01-09] MEDS: SPIRONOLACTONE 25 MG TAB PO SCH (08:49)
[2020-01-09] MEDS: FUROSEMIDE 20 MG TAB PO SCH ×2 (08:49→16:14)
[2020-01-09] MEDS: LOSARTAN 25 MG TAB PO SCH ×2 (08:49→21:29)
[2020-01-09] MEDS: CARVEDILOL 6.25 MG TAB PO SCH ×2 (08:49→17:03)
[2020-01-09] MEDS: TICAGRELOR 90 MG TAB PO SCH ×2 (08:49→21:28)
[2020-01-09] MEDS ORDERED: LOSARTAN 25 MG TAB PO SCH (09:00)
[2020-01-09] MEDS: ACETAMINOPHEN TAB 325 MG TAB PO PRN ×2 (09:34→21:28)
--- NOTE | 2020-01-09 11:29 | ECHOF ---
Referral Reason:stemi MEASUREMENTS -------- HEIGHT: 149.9 cm WEIGHT: 77.6 kg BP: 141/76 RVIDd: 3.2 cm (< 3.3) IVSd: 1.5 cm (0.6 - 1.1) LVIDd: 4.2 cm (3.9 - 5.3) LVPWd: 1.7 cm (0.6 - 1.1) IVSs: 1.7 cm LVIDs: 2.7 cm LVPWs: 1.9 cm LAESV Index (A-L): 40.68 ml/m Ao Diam: 2.4 cm (2.0 - 3.7) AV Cusp: 1.1 cm (1.5 - 2.6) LA Diam: 3.2 cm (2.7 - 3.8) MV E Amaury: 1.38 m/s MV DecT: 212 ms MV A Amaury: 1.51 m/s MV E/A Ratio: 0.91 RAP: 5.00 mmHg RVSP: 41.67 mmHg FINDINGS -------- Sinus rhythm. This was a technically adequate study. The left ventricular size is normal. There is moderate concentric left ventricular hypertrophy. O verall left ventricular systolic function is moderately impaired with, an EF between 35 - 40 %. Inc reased Lap Grade II Diastolic Dysfunction. Apical anterior LV wall motion is hypokinetic. Apical lateral LV wall motion is hypokinetic. Apical inferior LV wall motion is hypokinetic. Apical s eptum LV wall motion is hypokinetic. The right ventricle is normal in size. LA is moderately dilated 34-39 ml/m2 The right atrial size is normal. Interatrial and interventricular septum intact. There is moderate aortic valve sclerosis. There is no evidence of aortic regurgitation. There is no evidence of aortic stenosis. Tissue Aortic Valve- is normal fxing Severe mitral annular calcification present. Moderate mitral regurgitation is present. Myja-hm-egtnsrou tricuspid regurgitation present. There is mild to moderate pulmonary hypertension. The right ventricular systolic pressure, as measured by Doppler, is 41.67mmHg. There is no pulmonic regurgitation present. The aortic root size is normal. IVC Not well visulized. There is no pericardial effusion. CONCLUSIONS -------- 1. Sinus rhythm. 2. This was a technically adequate study. 3. The left ventricular size is normal. 4. There is moderate concentric left ventricular hypertrophy. 5. Overall left ventricular systolic function is moderately impaired with, an EF between 35 - 40 %. 6. Increased Lap Grade II Diastolic Dysfunction. 7. Apical anterior LV wall motion is hypokinetic. 8. Apical lateral LV wall motion is hypokinetic. 9. Apical inferior LV wall motion is hypokinetic. 10. Apical septum LV wall motion is hypokinetic. 11. The right ventricle is normal in size. 12. LA is moderately dilated 34-39 ml/m2 13. The right atrial size is normal. 14. Interatrial and interventricular septum intact. 15. There is moderate aortic valve sclerosis. 16. There is no evidence of aortic regurgitation. 17. There is no evidence of aortic stenosis. 18. Tissue Aortic Valve- normal 19. Severe mitral annular calcification present. 20. Moderate mitral regurgitation is present. 21. Jurh-mh-cbrdzlbc tricuspid regurgitation present. 22. There is mild to moderate pulmonary hypertension. 23. The right ventricular systolic pressure, as measured by Doppler, is 41.67mmHg. 24. There is no pulmonic regurgitation present. 25. The aortic root size is normal. 26. IVC Not well visulized. 27. There is no pericardial effusion. SENIOR [employer] CONSULTANT: Ingrid Hutchinson RDCS
[2020-01-09] MEDS ORDERED: ALPRAZolam 0.25 MG TAB PO PRN (11:49)
[2020-01-09 11:53] LABS: Glucose,Whole Blood 182 mg/dL (75-99)
--- NOTE | 2020-01-09 15:35 | PN ---
PROGRESS NOTE DATE OF SERVICE: 01/09/2020 This 84-year-old woman was admitted with acute anterior wall myocardial infarction, had cardiac catheterization and stenting of the LAD. Cardiology is following the patient closely. The patient is on dual antiplatelet and antihyperlipidemic treatment as well as a 2D echo with Doppler done that showed ejection fraction 35%-40% with diffuse hypokinesis with mild to moderate tricuspid regurgitation, with mild to moderate mitral regurgitation, several mitral annular calcification also noted. The chest x-ray done yesterday showed possible ascending aortic stent. CURRENT MEDICATIONS: Reviewed and include: 1. Tylenol 650 q.6 p.r.n. 2. Maalox 30 mL q.4. 3. DuoNeb q.i.d. and p.r.n. 4. Xanax 0.5 t.i.d. 5. Aspirin 81 mg daily. 6. Lipitor 80 mg q.h.s. 7. Nitro-Bid 0.5 mg p.r.n. 8. Lasix 20 mg p.o. b.i.d. 9. Amaryl. 10.Cozaar. 11.Nitrostat. 12.Protonix. 13.Aldactone. 14.Brilinta. 15.Ambien. Doses are reviewed. PHYSICAL EXAM: Patient is alert and oriented x3. The pulse is 92, blood pressure 113/82, respiration 12, temperature normal, pulse ox 94% on room air. HEENT: Conjunctivae normal. NECK: No jugular venous distension. CARDIOVASCULAR: S1, S2, muffled.: RESPIRATORY: Breath sounds diminished at the bases, a few scattered rhonchi, no crackles. ABDOMEN: Soft, nontender. LEGS: No edema. No swelling. LABS: WBC 11.6, hemoglobin is 10.2 and troponin 112 and cholesterol is 214, ALT is 144. ASSESSMENT: 1. Acute anterior wall ST-segment elevation myocardial infarction, status post cardiac catheterization and stenting of the LAD. 2. CHF acute exacerbation with acute systolic dysfunction, ejection fraction 35%-40% secondary to myocardial infarction. 3. Moderate aortic sclerosis and as well as moderate mitral regurgitation with severe mitral annular calcification and mild to moderate tricuspid regurgitation. 4. Troponin elevated up to 112. 5. Hyperlipidemia. 6. Asthma, chronic obstructive pulmonary disease history. 7. Anemia, microcytic undetermined etiology. 8. Diabetes mellitus type 2. 9. History of pericardiectomy and aortic valve replacement. 10.History of multiple stents. 11.History of cholecystectomy. 12.History of back surgery, degenerative joint disease. 13.History of hysterectomy. 14.History of stents x4. 15.Obesity with body mass index 34.6. 16.FULL CODE. RECOMMENDATION: In this 84-year-old woman who presented with multiple complex medical issues, will monitor the patient closely. Continue with dual antiplatelet. Continue with the diuretics. Repeat a chest x-ray to evaluate the fluid balance status. Otherwise, vitals are monitored, closely follow with Cardiology. Prognosis guarded because of multiple complex medical issues. Further recommendations to follow. MMODL / IJN: [id number] /
[2020-01-09 16:59] LABS: Glucose,Whole Blood 86 mg/dL (75-99)
[2020-01-09 20:26] LABS: Glucose,Whole Blood 203 mg/dL (75-99)
[2020-01-09 21:20] LABS: Glucose,Whole Blood 172 mg/dL (75-99)
[2020-01-09] MEDS: ATORVASTATIN 80 MG TAB PO SCH (21:28)
[2020-01-10 05:28] LABS: Basophils % (A) 0 %; Eosinophils # (A) 0.2 k/uL (0-0.7); Eosinophils % (A) 2 %; HCT 33.9 % (34.0-46.0); HGB 10.1 gm/dL (11.4-16.0); Hypochromasia Moderate; Lymphocytes # (A) 1.1 k/uL (1.0-4.8); Lymphocytes % (A) 13 %; MCH 23.3 pg (25.0-35.0); MCHC 29.9 g/dL (31.0-37.0); MCV 77.9 fL (80.0-100.0); Mean Platelet Volume 7.8; Microcytosis Slight; Monocytes # (A) 0.5 k/uL (0-1.0); Monocytes % (A) 6 %; Neutrophils # (A) 6.8 k/uL (1.3-7.7); Neutrophils % (A) 77 %; Platelet Count 340 k/uL (150-450); RBC 4.36 m/uL (3.80-5.40); RDW 15.8 % (11.5-15.5); WBC 8.8 k/uL (3.8-10.6)
[2020-01-10 05:40] LABS: Calcium 9.3 mg/dL (8.4-10.2); Potassium 4.5 mmol/L (3.5-5.1)
[2020-01-10 06:46] LABS: Glucose,Whole Blood 95 mg/dL (75-99)
[2020-01-10] MEDS: INSULIN ASPART (NovoLOG) 100 UNIT/ML VIAL SQ SCH ×3 (06:48→19:19)
[2020-01-10] MEDS: IPRATROPIUM-ALBUTEROL 3 ML NEB INHALATION SCH ×3 (07:53→19:50)
--- NOTE | 2020-01-10 08:50 | XR ---
EXAMINATION TYPE: XR chest 1V portable DATE OF EXAM: 01/10/2020 COMPARISON: 01/08/2020 HISTORY: Chest pain TECHNIQUE: Single frontal view of the chest is obtained. FINDINGS: The heart is enlarged and there is postoperative change. Coarsened interstitium with no pl eural effusion or consolidation. Interstitium stable. Diffuse osteopenia with arthropathy of the shou lders. Findings suggestive of an aortic stent placement. Arthropathy of the shoulders. IMPRESSION: 1. Stable appearance of the chest which may represent basilar atelectasis rather than pneumonia. Coar sened interstitium may be slightly improved and may represent improving venous congestion or intersti tial pneumonitis.
--- NOTE | 2020-01-10 08:51 | PN ---
PROGRESS NOTE Mrs. Chavarria is an 84-year-old female who presented with an acute anterior myocardial infarction with occlusion of her stent. She underwent stenting of the LAD. She has history of TAVR. Her breathing this morning is stable. She has no chest discomfort. She is complaining predominantly of her left hip pain, which is a chronic pain. She denies any dizziness or palpitation. She continued to be in sinus mechanism. She has no nausea, no vomiting. Hemodynamically, she is stable and continues to be on aspirin once a day, Lipitor 80 mg daily, Coreg 6.25 mg twice a day, Lasix 20 mg twice a day, Aldactone 25 mg daily, losartan 25 mg twice a day, and Brilinta 90 mg twice a day. PHYSICAL EXAMINATION: Blood pressure 127/80 with the heart rate in the 70s. LUNGS: A few crackles at the bases. HEART: Regular rate and rhythm. S1, S2. No S3 with systolic murmur heard at the base. No diastolic murmur. No rub. ABDOMEN: Soft, obese, nontender. EXTREMITIES: No edema. LAB DATA: Lab data revealed BUN and creatinine 28 and 1.17, potassium 4.5, hemoglobin of 10.1. IMPRESSION: 1. Status post stenting of the left anterior descending artery in a setting of an acute myocardial infarction. 2. Ischemic cardiomyopathy post myocardial infarction. 3. Status post TAVR. 4. History of hypertension. 5. Hyperlipidemia. RECOMMENDATION: From the cardiac standpoint, I will cut down her diuretics to once a day. Continue rest of her medical regimen. Increase her level activity and depending on her progress, she may be able to be discharged home in the next 24 to 48 hours. If she remains stable in the afternoon, she can be transferred to the telemetry floor and continue to increase her activity, although it is limited usually because of her hip discomfort. MMODL / IJN: [id number] /
[2020-01-10] MEDS ORDERED: FUROSEMIDE 20 MG TAB PO SCH (09:00)
[2020-01-10] MEDS: GLIMEPIRIDE 1 MG TAB PO SCH (10:41)
[2020-01-10] MEDS: CARVEDILOL 6.25 MG TAB PO SCH ×2 (10:41→17:16)
[2020-01-10] MEDS: SPIRONOLACTONE 25 MG TAB PO SCH (10:42)
[2020-01-10] MEDS: PANTOPRAZOLE 40 MG TABLET PO SCH (10:42)
[2020-01-10] MEDS: TICAGRELOR 90 MG TAB PO SCH (10:42)
[2020-01-10] MEDS: LOSARTAN 25 MG TAB PO SCH (10:42)
[2020-01-10] MEDS: ASPIRIN 81 MG PO SCH (10:42)
[2020-01-10 12:01] LABS: Glucose,Whole Blood 123 mg/dL (75-99)
--- NOTE | 2020-01-10 13:27 | CT ---
EXAMINATION TYPE: CT brain wo con DATE OF EXAM: 01/10/2020 COMPARISON: 11/19/2017 INDICATION: Left sided arm weakness DLP: 1188.4 mGycm, Automated exposure control for dose reduction was used. CONTRAST: None CT of the brain is performed utilizing 3 mm thick sections through the posterior fossa and 3 mm thick sections through the remaining calvarium. Study is performed within 24 hours of arrival to the hosp ital. No abnormal hyperdensity is present to suggest an acute intracranial hemorrhage. No mass lesion is evident. Large dense calcification is within the falx in the midline greater along the anterior portion. No acute infarcts are evident. Mild periventricular white matter hypodensity is present compatible wi th microvascular ischemic change. Subcortical or lacunar infarct within the right frontal lobe adjace nt to the lateral ventricle may be present. This is an interval finding. Ventricles and sulci are appropriate for the patient age. Paranasal sinuses and mastoid air cells within the itipz-cu-uicy are clear. IMPRESSIONS: 1. Periventricular white matter hypodensity, likely on the basis of chronic white matter ischemic c hange. 2. 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
[2020-01-10 13:42] LABS: Glucose,Whole Blood 119 mg/dL (75-99)
[2020-01-10 14:27] LABS: Basophils % (A) 1 %; Eosinophils # (A) 0.2 k/uL (0-0.7); Eosinophils % (A) 3 %; HCT 37.1 % (34.0-46.0); HGB 10.9 gm/dL (11.4-16.0); Hypochromasia Marked; Lymphocytes # (A) 1.2 k/uL (1.0-4.8); Lymphocytes % (A) 13 %; MCH 23.4 pg (25.0-35.0); MCHC 29.5 g/dL (31.0-37.0); MCV 79.3 fL (80.0-100.0); Mean Platelet Volume 7.1; Monocytes # (A) 0.5 k/uL (0-1.0); Monocytes % (A) 6 %; Neutrophils # (A) 6.7 k/uL (1.3-7.7); Neutrophils % (A) 77 %; Platelet Count 363 k/uL (150-450); RBC 4.68 m/uL (3.80-5.40); RDW 15.7 % (11.5-15.5); WBC 8.8 k/uL (3.8-10.6)
[2020-01-10 14:38] LABS: Albumin 4.7 g/dL (3.5-5.0); Calcium 9.5 mg/dL (8.4-10.2); Potassium 4.6 mmol/L (3.5-5.1); Total Bilirubin 0.3 mg/dL (0.2-1.3)
[2020-01-10 14:42] LABS: INR 0.9 (<1.2); Prothrombin Time 9.7 sec (9.0-12.0)
[2020-01-10 14:49] LABS: Partial Thromboplastin Time 21.6 sec (22.0-30.0)
[2020-01-10 17:00] LABS: Glucose,Whole Blood 151 mg/dL (75-99)
[2020-01-10 18:48] VITALS: TEMP 98.4
[2020-01-10 19:30] VITALS: BP 131/77; PULSE 105; RESP 16
--- NOTE | 2020-01-10 22:39 | DS ---
DISCHARGE SUMMARY DATE OF SERVICE: 01/10/2020 FINAL DIAGNOSES: 1. Acute anterior wall MZ-lsgnsic-eoujxdtkx myocardial infarction, status post cardiac catheterization and stenting of the left anterior descending coronary artery. 2. Congestive heart failure, acute exacerbation, with acute systolic dysfunction, ejection fraction 35% to 40%, secondary to myocardial infarction. 3. Possibly subacute subcortical infarct or lateral infarct within the right frontal centrum semiovale. 4. Moderate aortic sclerosis as well as moderate mitral regurgitation with severe mitral annular calcification with mild to moderate tricuspid regurgitation on the 2D echo. 5. Troponin elevated up to 112. 6. Hyperlipidemia. 7. Asthma, chronic obstructive pulmonary disease history. 8. Anemia, microcytic; undetermined etiology. 9. Diabetes mellitus, type 2. 10.History of pericardiectomy and aortic valve replacement. 11.History of multiple stents. 12.History of cholecystectomy. 13.History of back surgery, degenerative joint disease. 14.History of hysterectomy. 15.History of stents x4. 16.Obesity with body mass index of 34.6. 17.FULL CODE. DISCHARGE DISPOSITION: The patient will be discharged in stable condition with guarded prognosis. Total time taken 35 minutes. HISTORY OF PRESENT ILLNESS: This 84-year-old woman with a past medical history of multiple medical problems was admitted with acute anterior wall [id number]-cdgtszcqc myocardial infarction. Cardiology performed a cardiac catheterization and stenting of the LAD. The patient was found to have an ejection fraction of about 35% to 40%. The patient was monitored closely. The patient was complaining of weakness of the left upper limb on 01/10/2020, which might have been there for a couple of days, according to the patient. CT scan of the brain was done. STROKE CODE was called. CT scan of the brain showed old apparent subcortical infarct or lacunar infarct within the right frontal centrum semiovale. I discussed the case and the stroke team recommendations with the hospitalist solution make up operator at [facility] (phone number [phone]), and the patient will be transferred in stable condition with guarded prognosis. On exam, vitals are stable. CARDIOVASCULAR SYSTEM: S1, S2 muffled. ABDOMEN: Soft. NERVOUS SYSTEM: Weakness of the left upper limb present, grade zero to 1. CURRENT MEDICATIONS: 1. Tylenol p.r.n. 2. Xanax 0.25 t.i.d. p.r.n. 3. Aspirin 81 mg daily. 4. Lipitor 80 mg at bedtime. 5. Troponin 0.5 p.r.n. 6. Coreg 6.25 mg p.o. b.i.d. 7. Lasix 20 mg b.i.d. 8. Amaryl 1 mg. 9. DuoNeb q.i.d. and p.r.n. 10.Losartan 25 mg p.o. b.i.d. 11.Nitro p.r.n. 12.Protonix 40 mg daily. 13.Aldactone 25 mg daily. 14.Brilinta 90 mg p.o. b.i.d. 15.Ambien 5 mg p.o. at bedtime p.r.n. MMCAM / TWINN: [id number] /
== END 2020-01-10 19:30 | disposition short-term general hospital (02) | DRG 246 ==
LOC: EC 13:01 → 2SICU 13:25
PROVIDERS: ADMIT Hospitalist; ATTEND Hospitalist
PROC: 027034Z Dilation of Coronary Artery, One Artery with Drug-eluting Intraluminal Device, Percutaneous Approach (ICD-10-PCS; principal; 2020-01-08 12:40)
PROC: 4A023N7 Measurement of Cardiac Sampling and Pressure, Left Heart, Percutaneous Approach (ICD-10-PCS; principal; 2020-01-08 12:40)
PROC: B2111ZZ Fluoroscopy of Multiple Coronary Arteries using Low Osmolar Contrast (ICD-10-PCS; principal; 2020-01-08 12:40)
DX: I21.09 ST elevation (STEMI) myocardial infarction involving other coronary artery of anterior wall (principal); I50.23 Acute on chronic systolic (congestive) heart failure; I63.9 Cerebral infarction, unspecified; E78.5 Hyperlipidemia, unspecified; E11.9 Type 2 diabetes mellitus without complications; I25.10 Atherosclerotic heart disease of native coronary artery without angina pectoris; J44.9 Chronic obstructive pulmonary disease, unspecified; D50.9 Iron deficiency anemia, unspecified; R53.1 Weakness; M19.90 Unspecified osteoarthritis, unspecified site; E66.9 Obesity, unspecified; I11.0 Hypertensive heart disease with heart failure; I25.82 Chronic total occlusion of coronary artery; I08.1 Rheumatic disorders of both mitral and tricuspid valves; G89.29 Other chronic pain; I25.5 Ischemic cardiomyopathy; Z77.090 Contact with and (suspected) exposure to asbestos; I70.0 Atherosclerosis of aorta; Z68.34 Body mass index [BMI] 34.0-34.9, adult; Z79.84 Long term (current) use of oral hypoglycemic drugs; Z79.82 Long term (current) use of aspirin; Z79.02 Long term (current) use of antithrombotics/antiplatelets; Z79.899 Other long term (current) drug therapy; Z88.5 Allergy status to narcotic agent; Z88.8 Allergy status to other drugs, medicaments and biological substances; Z91.041 Radiographic dye allergy status; I25.2 Old myocardial infarction; Z90.49 Acquired absence of other specified parts of digestive tract; Z95.5 Presence of coronary angioplasty implant and graft; Z98.890 Other specified postprocedural states; Z90.710 Acquired absence of both cervix and uterus; Z95.2 Presence of prosthetic heart valve
CPT/HCPCS: 36415; 70450; 71045; 80048; 80053; 80061; 82550; 82553; 83690; 83735; 83880; 84484; 85025; 85347; 85610; 85730; 93005; 93306; 93458; 94640; 96372; 99291

== ENCOUNTER → 2020-02-26 | Outpatient (CLI) | payer MEDICARE ==
[2020-02-26 15:55] LABS: African American GFR (CKD) 53.4 (60.0-200.0); Albumin 4.2 g/dL (3.80-4.90); Albumin/Globulin Ratio 1.91 (1.60-3.17); Anion Gap 10.9 mmol/L (4.00-12.00); BUN/Creat Ratio 20.91 Ratio (12.00-20.00); Calcium 9.2 mg/dL (8.7-10.3); Carbon Dioxide 26.1 mmol/L (21.6-31.8); Chol/HDL Ratio 2.17; Globulin 2.2 g/dL (1.6-3.3); LDL Cholesterol,Calculated 38.2 mg/dL (0.0-131.0); Non-African American GFR(CKD) 46.1 (60.0-200.0); Potassium 5.2 mmol/L (3.5-5.5); Total Bilirubin 0.3 mg/dL (0.2-1.2); Total Protein 6.4 g/dL (6.2-8.2); VLDL Calculation 23.8 mg/dL (5.00-40.00)
== END | disposition home or self-care (01) ==
LOC: LABWHC1 10:37
PROVIDERS: ATTEND Internal Medicine Interventional Cardiology
DX: E78.2 Mixed hyperlipidemia (principal)
CPT/HCPCS: 36415; 80053; 80061

== ENCOUNTER 2020-05-07 20:27 | Emergency (ER) | payer MEDICARE ==
[2020-05-07 20:46] VITALS: BP 116/59; PULSE 87; RESP 18; TEMP 98.1
--- NOTE | 2020-05-07 21:21 | ED ---
Skin/Abscess/FB HPI - General Chief complaint: Skin/Abscess/Foreign Body Stated complaint: FB in ear Source: patient, family Mode of arrival: wheelchair Limitations: no limitations - History of Present Illness Initial comments: Patient is an 85-year-old male presenting to emergency Department with chief complaint of ear foreign body. Patient states she was using a Q-tip to clean her left ear and then she was not able to take the cotton part out of it. Patient states she does have some decreased hearing out of the left ear. States she attempted putting hydrogen peroxide but it only made the situation worse. It is not report any pain at this time just some muffled sounds. This occurred earlier today. - Related Data Home Medications Medication Instructions Recorded Confirmed Clopidogrel [Plavix] 75 mg PO DAILY 11/19/17 01/08/20 Dexlansoprazole [Dexilant] 60 mg PO DAILY 11/19/17 01/08/20 Losartan [Cozaar] 25 mg PO DAILY 11/19/17 01/08/20 Naproxen [Naprosyn] 500 mg PO BID 11/19/17 01/08/20 metFORMIN HCL [Glucophage] 500 mg PO TID 11/19/17 01/08/20 Carvedilol [Coreg] 3.125 mg PO BID 01/08/20 01/08/20 Glimepiride [Amaryl] 1 mg PO [id number] 01/08/20 01/08/20 Allergies Allergy/AdvReac Type Severity Reaction Status Date / Time butorphanol [From Stadol] Allergy Unknown Verified 01/08/20 14:10 iodine Allergy Unknown Verified 01/08/20 14:10 meperidine [From Demerol] Allergy Unknown Verified 01/08/20 14:10 morphine Allergy Anaphylaxis Verified 01/08/20 14:10 Review of Systems ROS Statement: Those systems with pertinent positive or pertinent negative responses have been documented in the HPI. ROS Other: All systems not noted in ROS Statement are negative. Past Medical History Past Medical History: Diabetes Mellitus, Myocardial Infarction ([place]) Last Myocardial Infarction Date:: 01/08/2020 History of Any Multi-Drug Resistant Organisms: None Reported Past Surgical History: Appendectomy, Back Surgery, Cholecystectomy, Heart Catheterization With Stent, Hernia Repair, Hysterectomy Additional Past Surgical History / Comment(s): stents x4 Date of Last Stent Placement:: 01/08/2020 Past Psychological History: No Psychological Hx Reported Smoking Status: Never smoker Past Alcohol Use History: None Reported Past Drug Use History: None Reported General Exam Limitations: no limitations General appearance: alert, in no apparent distress Head exam: Present: atraumatic, normocephalic, normal inspection Eye exam: Present: normal appearance, PERRL, EOMI Pupils: Present: normal accommodation ENT exam: Present: normal exam, normal oropharynx, mucous membranes moist, TM's normal bilaterally. Absent: normal external ear exam (Cotton swab noted in the left external auditory canal), other (No pain with traction of the year) Neck exam: Present: normal inspection, full ROM Respiratory exam: Present: normal lung sounds bilaterally. Absent: respiratory distress, wheezes Cardiovascular Exam: Present: regular rate, normal rhythm, normal heart sounds Extremities exam: Present: normal inspection, full ROM. Absent: tenderness Back exam: Present: normal inspection, full ROM. Absent: tenderness, CVA tenderness (R), CVA tenderness (L) Neurological exam: Present: alert, oriented X3 Psychiatric exam: Present: normal affect, normal mood Skin exam: Present: warm, dry, intact, normal color Course Vital Signs 05/07/20 20:42 Temperature 98.1 F Pulse Rate 87 Respiratory 18 Rate Blood Pressure 116/59 O2 Sat by Pulse 96 Oximetry Procedures - Foreign Body Removal Ear Location: ear canal (L) Foreign Body Suspected: other (Cotton ball) If Insect Suspected: ear canal inspected; intact TM, insect seen Foreign Body Removed: yes Foreign Body Removal Technique: forceps Tympanic Membrane Intact: Yes Patient Tolerated Procedure: well, no complications Complications: none Medical Decision Making - Medical Decision Making Patient is an 85-year-old female presenting to emergency Department with chief complaint of a near foreign body. Exam patient has a foreign body in the left ureter was able to remove it with alligator forceps. The patient tolerated procedure well. No damage to the left tympanic membrane. Patient reports improvement in hearing out of the left ear. No pain with traction on the auricle. Return parameters discussed. Case discussed with physician. Disposition Clinical Impression: Foreign body in left ear Disposition: HOME SELF-CARE Condition: Stable Instructions (If sedation given, give patient instructions): Ear Foreign Body (ED) Additional Instructions: Return to emergency department if symptoms worsen. Is patient prescribed a controlled substance at d/c from ED?: No Referrals: Dandre Jacob MD [Primary Care Provider] - 1-2 days Time of Disposition: 21:21
== END 2020-05-07 21:31 | disposition home or self-care (01) ==
LOC: EC 20:27
DX: T16.2XXA Foreign body in left ear, initial encounter (principal); E11.9 Type 2 diabetes mellitus without complications; I25.2 Old myocardial infarction; Z79.02 Long term (current) use of antithrombotics/antiplatelets; Z79.84 Long term (current) use of oral hypoglycemic drugs; Z88.8 Allergy status to other drugs, medicaments and biological substances; Z88.5 Allergy status to narcotic agent; Z91.048 Other nonmedicinal substance allergy status; Z95.5 Presence of coronary angioplasty implant and graft; Y93.89 Activity, other specified
CPT/HCPCS: 69200; 99282

== ENCOUNTER → 2021-01-15 | Outpatient (CLI) | payer MEDICARE ==
[2021-01-15 19:07] LABS: African American GFR (CKD) 43.3 (60.0-200.0); Albumin 4.1 g/dL (3.80-4.90); Albumin/Globulin Ratio 1.95 (1.60-3.17); Anion Gap 8.2 mmol/L (4.00-12.00); BUN/Creat Ratio 16.92 Ratio (12.00-20.00); Calcium 9.5 mg/dL (8.7-10.3); Carbon Dioxide 26.8 mmol/L (21.6-31.8); Chol/HDL Ratio 4.76; Globulin 2.1 g/dL (1.6-3.3); LDL Cholesterol,Calculated 153.8 mg/dL (0.0-131.0); Non-African American GFR(CKD) 37.4 (60.0-200.0); Potassium 4.9 mmol/L (3.5-5.5); Total Bilirubin 0.3 mg/dL (0.3-1.2); Total Protein 6.2 g/dL (6.2-8.2); VLDL Calculation 34.2 mg/dL (5.00-40.00)
== END | disposition home or self-care (01) ==
LOC: LABWHC1 07:36
PROVIDERS: ATTEND Nurse Practitioner Adult Health
DX: E78.2 Mixed hyperlipidemia (principal); I10 Essential (primary) hypertension
CPT/HCPCS: 36415; 80053; 80061

== ENCOUNTER → 2023-04-19 | Outpatient (CLI) | payer MEDICARE, OTHER ==
[2023-04-19 15:02] LABS: HCT 36.7 % (37.2-46.3); HGB 10.1 d/dL (12.0-15.0); MCH 22.4 pg (27.0-32.0); MCHC 27.5 d/dL (32.0-37.0); MCV 81.6 FL (80.0-97.0); Mean Platelet Volume 11.1 FL (9.5-12.2); NRBC Per 100 WBC 0 X 10*3/uL (0.00-0.01); Platelet Count 247 X 10*3/uL (140-440); RDW 25.1 % (11.5-14.5); WBC 5.27 X 10*3/uL (4.50-10.00)
[2023-04-19 16:00] LABS: % Iron Saturation 9.05 (12.00-45.00); ALT 15 U/L (8-44); AST 20 U/L (13-35); Albumin 3.9 d/dL (3.8-4.9); Albumin/Globulin Ratio 1.56 Ratio (1.60-3.17); Alkaline Phosphatase 94 U/L (41-126); BUN/Creat Ratio 15.23 Ratio (12.00-20.00); Blood Urea Nitrogen 19.8 mg/dL (9.0-27.0); Calcium 9.2 mg/dL (8.7-10.3); Carbon Dioxide 26.6 mmol/L (21.6-31.8); Chloride 101 mmol/L (96-109); Globulin 2.5 d/dL (1.6-3.3); Glucose 111 mg/dL (70-110); Iron 40 UG/DL (50-170); Potassium 4.6 mmol/L (3.5-5.5); Sodium 139 mmol/L (135-145); T4, Free (Free Thyroxine) 1.23 ng/dL (0.80-1.80); Total Bilirubin 0.3 mg/dL (0.3-1.2); Total Iron Binding Capacity 442 UG/DL (228-460); Total Protein 6.4 d/dL (6.2-8.2)
[2023-04-19 16:48] LABS: Anisocytosis (M) 2+; Basophils # (A) 0.06 X 10*3/uL (0.00-0.10); Basophils % (A) 1.1 %; Eosinophils # (A) 0.21 X 10*3/uL (0.04-0.35); Lymphocytes # (A) 1.14 X 10*3/uL (0.90-5.00); Lymphocytes % (A) 21.6 %; Monocytes # (A) 0.49 X 10*3/uL (0.20-1.00); Monocytes % (A) 9.3 %; Neutrophils # (A) 3.36 X 10*3/uL (1.80-7.70); Neutrophils % (A) 63.8 %
== END | disposition home or self-care (01) ==
LOC: LABWHC1 09:22
PROVIDERS: ATTEND Internal Medicine
DX: I11.0 Hypertensive heart disease with heart failure (principal); I50.9 Heart failure, unspecified; J44.9 Chronic obstructive pulmonary disease, unspecified; H53.8 Other visual disturbances; E11.9 Type 2 diabetes mellitus without complications; D64.9 Anemia, unspecified; R09.02 Hypoxemia
CPT/HCPCS: 36415; 80053; 82607; 83036; 83540; 83550; 84439; 84443; 85025

== ENCOUNTER 2024-02-01 13:12 | Emergency (ER) | payer MEDICARE, OTHER ==
--- NOTE | 2024-02-01 13:55 | ED ---
Female Urogenital HPI - General Source: patient, RN notes reviewed Mode of arrival: ambulatory Limitations: no limitations <Laura Singh - Last Filed: 02/01/24 13:52> - History of Present Illness MD Complaint: dysuria Onset/Timin -: week(s) Severity scale (1-10): 0 Improves with: none Worsens with: urination Associated Symptoms: other (Fatigue) <Willian Tavares - Last Filed: 02/03/24 07:08> - General Chief complaint: Urogenital Stated complaint: Uti Time Seen by Provider: 02/01/24 13:35 - History of Present Illness Initial comments: Quick Note 88-year-old female chief complaint of dysuria, prepubic tenderness, and bilateral flank pain. Patient went to urgent care today where they tested h er urine and told her to come to the emergency department for further evaluation and potential IV antibiotics. Patient's granddaughter is with her and states that she has been acting more confused and lethargic lately. Patient lives at home by herself (Laura Singh) Patient is an 88-year-old woman here to have evaluation of dysuria that has been going on approximately 1 week today. As above patient seen at an urgent care where they were concerned with the patient's urine findings and elevated blood sugar. Denies systemic symptoms, no fever or chills, chest pain, palpitations, dyspnea. She does have some generalized fatigue. (Willian Tavares) - Related Data Home Medications Medication Instructions Recorded Confirmed Clopidogrel [Plavix] 75 mg PO DAILY 11/19/17 01/08/20 Dexlansoprazole [Dexilant] 60 mg PO DAILY 11/19/17 01/08/20 Losartan [Cozaar] 25 mg PO DAILY 11/19/17 01/08/20 Naproxen [Naprosyn] 500 mg PO BID 11/19/17 01/08/20 metFORMIN HCL [Glucophage] 500 mg PO TID 11/19/17 01/08/20 Glimepiride [Amaryl] 1 mg PO AC-[id number] 01/08/20 01/08/20 carvediloL [Coreg] 3.125 mg PO BID 01/08/20 01/08/20 Previous Rx's Medication Instructions Recorded Cephalexin [Keflex] 500 mg PO Q6HR #28 cap 02/01/24 Allergies Allergy/AdvReac Type Severity Reaction Status Date / Time butorphanol [From Stadol] Allergy Unknown Verified 02/01/24 13:24 codeine Allergy Unknown Verified 02/01/24 13:24 iodine Allergy Unknown Verified 02/01/24 13:24 meperidine [From Demerol] Allergy Unknown Verified 02/01/24 13:24 morphine Allergy Anaphylaxis Verified 02/01/24 13:24 Review of Systems ROS Other: All systems not noted in ROS Statement are negative. <Laura Singh - Last Filed: 02/01/24 13:52> ROS Other: All systems not noted in ROS Statement are negative. Constitutional: Denies: fever, chills, weakness Respiratory: Denies: cough, dyspnea Cardiovascular: Denies: chest pain, palpitations, edema Gastrointestinal: Denies: abdominal pain, vomiting, diarrhea Genitourinary: Reports: dysuria, frequency. Denies: hematuria Musculoskeletal: Denies: back pain Skin: Denies: rash Neurological: Denies: headache, weakness <Willian Tavares - Last Filed: 02/03/24 07:08> ROS Statement: Those systems with pertinent positive or pertinent negative responses have been documented in the HPI. Past Medical History Past Medical History: Diabetes Mellitus, Myocardial Infarction ([place]) Last Myocardial Infarction Date:: 01/08/2020 History of Any Multi-Drug Resistant Organisms: None Reported Past Surgical History: Appendectomy, Back Surgery, Cholecystectomy, Heart Catheterization With Stent, Hernia Repair, Hysterectomy Additional Past Surgical History / Comment(s): stents x4 Date of Last Stent Placement:: 01/08/2020 Past Psychological History: No Psychological Hx Reported Smoking Status: Never smoker Past Alcohol Use History: None Reported Past Drug Use History: None Reported <Laura Singh - Last Filed: 02/01/24 13:52> General Exam Limitations: no limitations <Laura Singh - Last Filed: 02/01/24 13:52> Limitations: no limitations General appearance: alert, in no apparent distress Head exam: Present: atraumatic, normocephalic Eye exam: Present: normal appearance. Absent: scleral icterus, conjunctival injection ENT exam: Present: normal oropharynx Neck exam: Present: normal inspection Respiratory exam: Present: normal lung sounds bilaterally. Absent: respiratory distress, wheezes, rales, rhonchi, stridor, accessory muscle use Cardiovascular Exam: Present: regular rate, normal rhythm, normal heart sounds. Absent: systolic murmur, diastolic murmur, rubs, gallop GI/Abdominal exam: Present: soft. Absent: distended, tenderness, guarding, rebound, rigid, mass Extremities exam: Present: normal inspection, normal capillary refill. Absent: pedal edema, calf tenderness Back exam: Present: normal inspection. Absent: CVA tenderness (R), CVA tenderness (L) Neurological exam: Present: alert Skin exam: Present: warm, dry, intact, normal color. Absent: rash <Willian Tavares - Last Filed: 02/03/24 07:08> - General Exam Comments Initial Comments: Visual Physical Exam Vital signs reviewed General: Well-appearing, nontoxic, no acute distress. Head: Normocephalic, atraumatic Eyes: PERRLA, EOMI ENT: Airway patent Chest: Nonlabored breathing Skin: No visual rash, normal skin tone Neuro: Alert and oriented 3 Musculoskeletal: No gross abnormalities (Laura Singh) Course Vital Signs 02/01/24 02/01/24 13:20 16:52 Temperature 97.9 F 98.4 F Pulse Rate 94 86 Respiratory 18 16 Rate Blood Pressure 124/81 170/88 O2 Sat by Pulse 96 99 Oximetry Medical Decision Making <Laura Singh - Last Filed: 02/01/24 13:52> - Lab Data Result diagrams: 02/01/24 14:42 02/01/24 14:42 <Willian Tavares - Last Filed: 02/03/24 07:08> - Medical Decision Making I completed the quick note portion of this chart signed Laura Singh PA-C (Laura Singh) Patient is an 88-year-old woman presenting with symptoms she states are identic al to previous episodes of urinary tract infection. The workup does reveal evidence of urinary tract infection, otherwise no major problem. The patient is started on antibiotics here and discussed further treatment and follow-up. Case is also discussed with the patient's daughter and they would like to go home. Discussed the return parameters, including worsening more not having improvement with outpatient treatment, all questions answered. Was pt. sent in by a medical professional or institution (, PA, TACO [employer]ER, urgent care, hospital, or assisted...) When possible be specific @ -[No] Did you speak to anyone other than the patient for history (EMS, parent, family, police, friend...)? What history was obtained from this source @ -[No] Did you review nursing and triage notes (agree or disagree)? Why? @ -[I reviewed and agree with nursing and triage notes] Were old charts reviewed (outside hosp., previous admission, EMS record, old EKG, old radiological studies, urgent care reports/EKG's, assisted records)? Report findings @ -[No old charts were reviewed] Differential Diagnosis (chest pain, altered mental status, abdominal pain women, abdominal pain men, vaginal bleeding, weakness, fever, dyspnea, syncope, headache, dizziness, GI bleed, back pain, seizure, CVA, palpatations, mental health, musculoskeletal)? @ -[Differential Abdominal Pain Women: Appendicitis, Cholecystitis, diverticulosis, ischemic bowel, pancreatitis, hepatitis, UTI, gastroenteritis, AAA, incarcerated hernia, bowel obstruction, constipation, inflammatory bowel, hepatitis, peptic ulcer disease, splenic infarction, perforated viscus, vulvitis, ovarian torsion, PID, kidney stone, placenta abruption, this is not meant to be an all-inclusive list EKG interpreted by me (3pts min.). @ -[As above] X-rays interpreted by me (1pt min.). @ -[None done] CT interpreted by me (1pt min.). @ -[None done] U/S interpreted by me (1pt. min.). @ -[None done] What testing was considered but not performed or refused? (CT, X-rays, U/S, labs)? Why? @ -[None] What meds were considered but not given or refused? Why? @ -[None] Did you discuss the management of the patient with other professionals (kati figueroafessionals i.e. , [facility], [employer], lab, RT, psych nurse, clinical social worker, piano machine operator, teacher, chairman & chief executive officer, foster care case manager)? Give summary @ -[No] Was smoking cessation discussed for >3mins.? @ -[No] Was critical care preformed (if so, how long)? @ -[No] Were there social determinants of health that impacted care today? How? (Homelessness, low income, unemployed, alcoholism, drug addiction, transportatio n, low edu. Level, literacy, decrease access to med. care, longterm, rehab)? @ -[No] Was there de-escalation of care discussed even if they declined (Discuss DNR or withdrawal of care, Hospice)? DNR status @ -[No] What co-morbidities impacted this encounter? (DM, HTN, Smoking, COPD, CAD, Cancer, CVA, ARF, Chemo, Hep., AIDS, mental health diagnosis, sleep apnea, morbid obesity)? @ -[None] Was patient admitted / discharged? Hospital course, mention meds given and route, prescriptions, significant lab abnormalities, going to OR and other pertinent info. @ -[As above ed new problem with uncertain prognosis? @ -[No] Drug Therapy requiring intensive monitoring for toxicity (Heparin, Nitro, Insuli n, Cardizem)? @ -[No] Were any procedures done? @ -[No] Diagnosis/symptom? @ -[Acute urinary tract infection Hyperglycemia Acute, or Chronic, or Acute on Chronic? @ -Acute Uncomplicated (without systemic symptoms) or Complicated (systemic symptoms)? @ -[Uncomplicated Side effects of treatment? @ -[No] Exacerbation, Progression, or Severe Exacerbation? @ -[No] Poses a threat to life or bodily function? How? (Chest pain, [place], [place], pneumonia, PE, COPD, DKA, ARF, appy, cholecystitis, CVA, Diverticulitis, Homicidal, Suicidal, threat to staff... and all critical care pts) @ -[No] (Willian Tavares) - Lab Data Lab Results 02/01/24 02/01/24 02/01/24 Range/Units 14:42 14:42 14:42 WBC 8.3 (3.8-10.6) k/uL RBC 4.81 (3.80-5.40) m/uL Hgb 12.3 (11.4-16.0) gm/dL Hct 40.3 (34.0-46.0) % MCV 83.8 (80.0-100.0) fL MCH 25.7 (25.0-35.0) pg MCHC 30.7 L (31.0-37.0) g/dL RDW 15.8 H (11.5-15.5) % Plt Count 320 (150-450) k/uL MPV 8.4 Neutrophils % 74 % Lymphocytes % 14 % Monocytes % 7 % Eosinophils % 3 % Basophils % 1 % Neutrophils # 6.2 (1.3-7.7) k/uL Lymphocytes # 1.2 (1.0-4.8) k/uL Monocytes # 0.6 (0-1.0) k/uL Eosinophils # 0.2 (0-0.7) k/uL Basophils # 0.0 (0-0.2) k/uL Hypochromasia Moderate PT 10.4 (10.0-12.5) sec INR 0.9 (<1.2) APTT 23.7 (22.0-30.0) sec Sodium 139 (137-145) mmol/L Potassium 4.5 (3.5-5.1) mmol/L Chloride 106 (98-107) mmol/L Carbon Dioxide 22 (22-30) mmol/L Anion Gap 11 mmol/L BUN 23 H (7-17) mg/dL Creatinine 1.22 H (0.52-1.04) mg/dL Est GFR (CKD-EPI)AfAm 46 (>60 ml/min/1.73 sqM) Est GFR (CKD-EPI)NonAf 40 (>60 ml/min/1.73 sqM) Glucose 213 H (74-99) mg/dL POC Glucose (mg/dL) (70-110) mg/dL POC Glu Dialysis Registered Nurse ID Plasma Lactic Acid Charly (0.7-2.0) mmol/L Calcium 8.8 (8.4-10.2) mg/dL Total Bilirubin 0.3 (0.2-1.3) mg/dL AST 21 (14-36) U/L ALT 14 (4-34) U/L Alkaline Phosphatase 122 (38-126) U/L Creatine Kinase 60 (30-135) U/L Troponin I (0.000-0.034) ng/mL Total Protein 6.7 (6.3-8.2) g/dL Albumin 3.9 (3.5-5.0) g/dL Urine Color Urine Appearance (Clear) Urine pH (5.0-8.0) Ur Specific [place] (1.001-1.035) Urine Protein (Negative) Urine Glucose (UA) (Negative) Urine Ketones (Negative) Urine Blood (Negative) Urine Nitrite (Negative) Urine Bilirubin (Negative) Urine Urobilinogen (<2.0) mg/dL Ur Leukocyte Esterase (Negative) Urine RBC (0-5) /hpf Urine WBC (0-5) /hpf Urine WBC Clumps (None) /hpf Ur Squamous Epith Cells (0-4) /hpf Urine Bacteria (None) /hpf Urine Mucus (None) /hpf 02/01/24 02/01/24 02/01/24 Range/Units 14:42 14:42 15:00 WBC (3.8-10.6) k/uL RBC (3.80-5.40) m/uL Hgb (11.4-16.0) gm/dL Hct (34.0-46.0) % MCV (80.0-100.0) fL MCH (25.0-35.0) pg MCHC (31.0-37.0) g/dL RDW (11.5-15.5) % Plt Count (150-450) k/uL MPV Neutrophils % % Lymphocytes % % Monocytes % % Eosinophils % % Basophils % % Neutrophils # (1.3-7.7) k/uL Lymphocytes # (1.0-4.8) k/uL Monocytes # (0-1.0) k/uL Eosinophils # (0-0.7) k/uL Basophils # (0-0.2) k/uL Hypochromasia PT (10.0-12.5) sec INR (<1.2) APTT (22.0-30.0) sec Sodium (137-145) mmol/L Potassium (3.5-5.1) mmol/L Chloride (98-107) mmol/L Carbon Dioxide (22-30) mmol/L Anion Gap mmol/L BUN (7-17) mg/dL Creatinine (0.52-1.04) mg/dL Est GFR (CKD-EPI)AfAm (>60 ml/min/1.73 sqM) Est GFR (CKD-EPI)NonAf (>60 ml/min/1.73 sqM) Glucose (74-99) mg/dL POC Glucose (mg/dL) (70-110) mg/dL POC Glu Dialysis Registered Nurse ID Plasma Lactic Acid Charly 2.0 (0.7-2.0) mmol/L Calcium (8.4-10.2) mg/dL Total Bilirubin (0.2-1.3) mg/dL AST (14-36) U/L ALT (4-34) U/L Alkaline Phosphatase (38-126) U/L Creatine Kinase (30-135) U/L Troponin I 0.031 (0.000-0.034) ng/mL Total Protein (6.3-8.2) g/dL Albumin (3.5-5.0) g/dL Urine Color Yellow Urine Appearance Cloudy H (Clear) Urine pH 5.5 (5.0-8.0) Ur Specific [place] 1.015 (1.001-1.035) Urine Protein Trace H (Negative) Urine Glucose (UA) 4+ H (Negative) Urine Ketones Negative (Negative) Urine Blood Small H (Negative) Urine Nitrite Negative (Negative) Urine Bilirubin Negative (Negative) Urine Urobilinogen <2.0 (<2.0) mg/dL Ur Leukocyte Esterase Large H (Negative) Urine RBC 5 (0-5) /hpf Urine WBC 111 H (0-5) /hpf Urine WBC Clumps Moderate H (None) /hpf Ur Squamous Epith Cells 1 (0-4) /hpf Urine Bacteria Occasional H (None) /hpf Urine Mucus Rare H (None) /hpf 02/01/24 Range/Units 16:04 WBC (3.8-10.6) k/uL RBC (3.80-5.40) m/uL Hgb (11.4-16.0) gm/dL Hct (34.0-46.0) % MCV (80.0-100.0) fL MCH (25.0-35.0) pg MCHC (31.0-37.0) g/dL RDW (11.5-15.5) % Plt Count (150-450) k/uL MPV Neutrophils % % Lymphocytes % % Monocytes % % Eosinophils % % Basophils % % Neutrophils # (1.3-7.7) k/uL Lymphocytes # (1.0-4.8) k/uL Monocytes # (0-1.0) k/uL Eosinophils # (0-0.7) k/uL Basophils # (0-0.2) k/uL Hypochromasia PT (10.0-12.5) sec INR (<1.2) APTT (22.0-30.0) sec Sodium (137-145) mmol/L Potassium (3.5-5.1) mmol/L Chloride (98-107) mmol/L Carbon Dioxide (22-30) mmol/L Anion Gap mmol/L BUN (7-17) mg/dL Creatinine (0.52-1.04) mg/dL Est GFR (CKD-EPI)AfAm (>60 ml/min/1.73 sqM) Est GFR (CKD-EPI)NonAf (>60 ml/min/1.73 sqM) Glucose (74-99) mg/dL POC Glucose (mg/dL) 221 H (70-110) mg/dL POC Glu Dialysis Registered Nurse ID Adria Mtz Plasma Lactic Acid Charly (0.7-2.0) mmol/L Calcium (8.4-10.2) mg/dL Total Bilirubin (0.2-1.3) mg/dL AST (14-36) U/L ALT (4-34) U/L Alkaline Phosphatase (38-126) U/L Creatine Kinase (30-135) U/L Troponin I (0.000-0.034) ng/mL Total Protein (6.3-8.2) g/dL Albumin (3.5-5.0) g/dL Urine Color Urine Appearance (Clear) Urine pH (5.0-8.0) Ur Specific [place] (1.001-1.035) Urine Protein (Negative) Urine Glucose (UA) (Negative) Urine Ketones (Negative) Urine Blood (Negative) Urine Nitrite (Negative) Urine Bilirubin (Negative) Urine Urobilinogen (<2.0) mg/dL Ur Leukocyte Esterase (Negative) Urine RBC (0-5) /hpf Urine WBC (0-5) /hpf Urine WBC Clumps (None) /hpf Ur Squamous Epith Cells (0-4) /hpf Urine Bacteria (None) /hpf Urine Mucus (None) /hpf Disposition <Laura Singh - Last Filed: 02/01/24 13:52> Is patient prescribed a controlled substance at d/c from ED?: No <Willian Tavares - Last Filed: 02/03/24 07:08> Clinical Impression: Urinary tract infection Disposition: HOME SELF-CARE Condition: Good Instructions (If sedation given, give patient instructions): Urinary Tract Infection in Women (ED) Prescriptions: Cephalexin [Keflex] 500 mg PO Q6HR #28 cap Referrals: None,Stated [Primary Care Provider] - 1-2 days Cristhian Palmer MD [STAFF PHYSICIAN] - 1-2 days
[2024-02-01 15:06] LABS: Basophils % (A) 1 %; Eosinophils # (A) 0.2 k/uL (0-0.7); Eosinophils % (A) 3 %; HCT 40.3 % (34.0-46.0); HGB 12.3 gm/dL (11.4-16.0); Hypochromasia Moderate; Lymphocytes # (A) 1.2 k/uL (1.0-4.8); Lymphocytes % (A) 14 %; MCH 25.7 pg (25.0-35.0); MCHC 30.7 g/dL (31.0-37.0); MCV 83.8 fL (80.0-100.0); Mean Platelet Volume 8.4; Monocytes # (A) 0.6 k/uL (0-1.0); Monocytes % (A) 7 %; Neutrophils # (A) 6.2 k/uL (1.3-7.7); Neutrophils % (A) 74 %; Platelet Count 320 k/uL (150-450); RBC 4.81 m/uL (3.80-5.40); RDW 15.8 % (11.5-15.5); WBC 8.3 k/uL (3.8-10.6)
[2024-02-01 15:13] LABS: INR 0.9 (<1.2)
[2024-02-01 15:14] LABS: Partial Thromboplastin Time 23.7 sec (22.0-30.0); Prothrombin Time 10.4 sec (10.0-12.5)
[2024-02-01 15:17] LABS: ALT 14 U/L (4-34); AST 21 U/L (14-36); African American GFR (CKD) 46 (>60 ml/min/1.73 sqM); Albumin 3.9 g/dL (3.5-5.0); Alkaline Phosphatase 122 U/L (38-126); Anion Gap 11 mmol/L; Blood Urea Nitrogen 23 mg/dL (7-17); Calcium 8.8 mg/dL (8.4-10.2); Carbon Dioxide 22 mmol/L (22-30); Chloride 106 mmol/L (98-107); Creatine Kinase 60 U/L (30-135); Glucose 213 mg/dL (74-99); Non-African American GFR(CKD) 40 (>60 ml/min/1.73 sqM); Potassium 4.5 mmol/L (3.5-5.1); Sodium 139 mmol/L (137-145); Total Bilirubin 0.3 mg/dL (0.2-1.3); Total Protein 6.7 g/dL (6.3-8.2)
[2024-02-01 16:07] LABS: Glucose,Whole Blood 221 mg/dL (70-110)
[2024-02-01 16:08] LABS: Appearance,Urine Cloudy (Clear); Bacteria,Urine Occasional /hpf; Bilirubin,Urine Negative (Negative); Blood,Urine Small (Negative); Color,Urine Yellow; Glucose,Urine (UA) 4+ (Negative); Ketones,Urine Negative (Negative); Leukocyte Esterase,Urine Large (Negative); Mucus,Urine Rare /hpf; Nitrite,Urine Negative (Negative); PH, Urine 5.5 (5.0-8.0); Protein,Urine Trace (Negative); RBC,Urine 5 /hpf (0-5); Specific Gravity,Urine 1.015 (1.001-1.035); Squamous Epithelial Cell,Urine 1 /hpf (0-4); Urobilinogen,Urine <2.0 mg/dL (<2.0); WBC,Urine 111 /hpf (0-5)
[2024-02-01] MEDS: INSULIN REGULAR 100 UNIT/ML VIAL (IV) SQ STA (16:20)
[2024-02-01] MEDS: SODIUM CHLORIDE 0.9% 500 ML 500 ML IV STA (16:21)
[2024-02-01 17:15] VITALS: BP 170/88; PULSE 86; RESP 16; TEMP 98.4
== END 2024-02-01 18:57 | disposition home or self-care (01) ==
LOC: EC 13:12
DX: N39.0 Urinary tract infection, site not specified (principal); Z88.5 Allergy status to narcotic agent; Z88.8 Allergy status to other drugs, medicaments and biological substances
CPT/HCPCS: 36415; 93005; 80053; 82550; 83605; 84484; 85025; 85610; 85730; 81001; 87086; 99284; 96365; 96361; J0696

== ENCOUNTER → 2024-02-01 | Outpatient (CLI) | payer MEDICARE, OTHER ==
[2024-02-01 15:31] LABS: Blood Urea Nitrogen 23.4 mg/dL (9.0-27.0); Calcium 9.5 mg/dL (8.7-10.3); Carbon Dioxide 23.2 mmol/L (21.6-31.8); Chloride 103 mmol/L (96-109); Glucose 154 mg/dL (70-110); Potassium 4.8 mmol/L (3.5-5.5); Sodium 139 mmol/L (135-145)
== END | disposition home or self-care (01) ==
LOC: LABWHC1 09:18
PROVIDERS: ATTEND Internal Medicine Interventional Cardiology
DX: N18.9 Chronic kidney disease, unspecified (principal)
CPT/HCPCS: 36415; 80048

== ENCOUNTER → 2024-08-17 | Outpatient (CLI) | payer MEDICARE, OTHER ==
[2024-08-17 15:00] LABS: Basophils # (A) 0.03 X 10*3/uL (0.00-0.10); Basophils % (A) 0.4 %; Eosinophils # (A) 0.18 X 10*3/uL (0.04-0.35); Eosinophils % (A) 2.5 %; HCT 43.1 % (37.2-46.3); HGB 12.9 g/dL (12.0-15.0); Lymphocytes # (A) 0.96 X 10*3/uL (0.90-5.00); Lymphocytes % (A) 13.6 %; MCH 25.5 pg (27.0-32.0); MCHC 29.9 g/dL (32.0-37.0); MCV 85.3 FL (80.0-97.0); Mean Platelet Volume 10.7 FL (9.5-12.2); Monocytes # (A) 0.56 X 10*3/uL (0.20-1.00); Monocytes % (A) 7.9 %; NRBC Per 100 WBC 0 X 10*3/uL (0.00-0.01); Neutrophils % (A) 75.2 %; Platelet Count 295 X 10*3/uL (140-440); RBC 5.05 X 10*6/uL (4.10-5.20); RDW 16.6 % (11.5-14.5); WBC 7.06 X 10*3/uL (4.50-10.00)
[2024-08-17 23:26] LABS: Albumin 4.1 g/dL (3.8-4.9); BUN/Creat Ratio 13.33 Ratio (12.00-20.00); Calcium 9.4 mg/dL (8.7-10.3); Carbon Dioxide 24.4 mmol/L (21.6-31.8); Chloride 104 mmol/L (96-109); Glucose 117 mg/dL (70-110); Potassium 4.9 mmol/L (3.5-5.5); Sodium 140 mmol/L (135-145); Total Protein 6.8 g/dL (6.2-8.2)
[2024-08-17 23:27] LABS: ALT 13 U/L (8-44); AST 25 U/L (13-35); Albumin/Globulin Ratio 1.52 Ratio (1.60-3.17); Alkaline Phosphatase 117 U/L (41-126); Globulin 2.7 g/dL (1.6-3.3); Total Bilirubin 0.2 mg/dL (0.3-1.2)
== END | disposition home or self-care (01) ==
LOC: LABWHC1 09:54
PROVIDERS: ATTEND Family Medicine
DX: E11.9 Type 2 diabetes mellitus without complications (principal)
CPT/HCPCS: 36415; 80053; 83036; 85025

== ENCOUNTER 2024-08-22 17:04 | Inpatient (IN) | payer MEDICARE, OTHER ==
--- NOTE | 2024-08-22 17:46 | ED ---
Nausea/Vomiting/Diarrhea HPI - General Chief complaint: Nausea/Vomiting/Diarrhea Stated complaint: weakness, sickness Time Seen by Provider: 08/22/24 17:42 Source: patient, family, RN notes reviewed Mode of arrival: ambulatory Limitations: no limitations - History of Present Illness Initial comments: This is an 89-year-old female with history of hiatal hernia presenting with daughter for vomiting x 2 weeks. Daughter reports this has been intermittent over the past couple weeks, but over the past few days patient can only keep fruit down. Reports her vomit has looked like "coffee grounds" for the past 2 weeks. She believes this may be due to her hiatal hernia. Denies abdominal pain, chest pain, shortness of breath, fever, chills. She was sent by Dr. Palmer today. She does have a history of CAD, last stent was in 2019. She is on Eliquis. Last bowel movement was today and was normal in color. - Related Data Home Medications Medication Instructions Recorded Confirmed Clopidogrel [Plavix] 75 mg PO DAILY 11/19/17 01/08/20 Dexlansoprazole [Dexilant] 60 mg PO DAILY 11/19/17 01/08/20 Losartan [Cozaar] 25 mg PO DAILY 11/19/17 01/08/20 Naproxen [Naprosyn] 500 mg PO BID 11/19/17 01/08/20 metFORMIN HCL [Glucophage] 500 mg PO TID 11/19/17 01/08/20 Glimepiride [Amaryl] 1 mg PO AC-BRKFST 01/08/20 01/08/20 carvediloL [Coreg] 3.125 mg PO BID 01/08/20 01/08/20 Previous Rx's Medication Instructions Recorded Cephalexin [Keflex] 500 mg PO Q6HR #28 cap 02/01/24 Allergies Allergy/AdvReac Type Severity Reaction Status Date / Time butorphanol [From Stadol] Allergy Unknown Verified 08/22/24 17:20 codeine Allergy Unknown Verified 08/22/24 17:20 iodine Allergy Unknown Verified 08/22/24 17:20 meperidine [From Demerol] Allergy Unknown Verified 08/22/24 17:20 morphine Allergy Anaphylaxis Verified 08/22/24 17:20 Review of Systems ROS Statement: Those systems with pertinent positive or pertinent negative responses have been documented in the HPI. ROS Other: All systems not noted in ROS Statement are negative. Past Medical History Past Medical History: Diabetes Mellitus, Myocardial Infarction (NM) Additional Past Medical History / Comment(s): hiatal hernia Last Myocardial Infarction Date:: 01/08/2020 History of Any Multi-Drug Resistant Organisms: None Reported Past Surgical History: Appendectomy, Back Surgery, Cholecystectomy, Heart Catheterization With Stent, Hernia Repair, Hysterectomy Additional Past Surgical History / Comment(s): stents x4 Date of Last Stent Placement:: 01/08/2020 Past Psychological History: No Psychological Hx Reported Smoking Status: Never smoker Past Alcohol Use History: None Reported Past Drug Use History: None Reported General Exam - General Exam Comments Initial Comments: Visual Physical Exam Vital signs reviewed General: Well-appearing, nontoxic, no acute distress. Head: Normocephalic, atraumatic Eyes: PERRLA, EOMI ENT: Airway patent Chest: Nonlabored breathing Skin: No visual rash, normal skin tone Neuro: Alert and oriented 3 Musculoskeletal: No gross abnormalities Limitations: no limitations Course Vital Signs 08/22/24 08/22/24 17:20 20:47 Temperature 97.8 F Pulse Rate 79 Respiratory 18 18 Rate Blood Pressure 147/74 141/67 O2 Sat by Pulse 97 Oximetry Medical Decision Making - Medical Decision Making I completed the quick note portion of this chart signed Megan Arroyo PA-C Was pt. sent in by a medical professional or institution (IRVING Bullock, PROGRAM DIRECTOR, urgent care, hospital, or long-term...) When possible be specific @ -No Did you speak to anyone other than the patient for history (EMS, parent, family, police, friend...)? What history was obtained from this source @ -Daughter supplemented history Did you review nursing and triage notes (agree or disagree)? Why? @ -I reviewed and agree with nursing and triage notes Were old charts reviewed (outside hosp., previous admission, EMS record, old EKG, old radiological studies, urgent care reports/EKG's, long-term records)? Report findings @ -No old charts were reviewed Differential Diagnosis (chest pain, altered mental status, abdominal pain women, abdominal pain men, vaginal bleeding, weakness, fever, dyspnea, syncope, hea dache, dizziness, GI bleed, back pain, seizure, CVA, palpatations, mental health, musculoskeletal)? @ -Differential GI Bleed: Esophageal varices, aortoenteric fistula, Barbara-Arriola, gastritis, peptic ulcer disease, diverticulosis, inflammatory bowel disease, hemorrhoids, fissure, colitis, malignancy, Meckel's diverticulum, this is not meant to be an all- inclusive list. EKG interpreted by me (3pts min.). @ -As above X-rays interpreted by me (1pt min.). @ -None done CT interpreted by me (1pt min.). @ -CT abdomen pelvis revealed moderate size hiatal hernia, no bowel obstruction or acute findings, asymmetric diminished function to kidneys with poor functioning of right kidney U/S interpreted by me (1pt. min.). @ -None done What testing was considered but not performed or refused? (CT, X-rays, U/S, labs)? Why? @ -None What meds were considered but not given or refused? Why? @ -None Did you discuss the management of the patient with other professionals (professionals i.e. , PA, PROGRAM DIRECTOR, lab, RT, psych nurse, social service agency director, yield analyst, teacher, traffic maintenance officer, disease case manager rn)? Give summary @ -No Was smoking cessation discussed for >3mins.? @ -No Was critical care preformed (if so, how long)? @ -No Were there social determinants of health that impacted care today? How? (Homelessness, low income, unemployed, alcoholism, drug addiction, transportation, low edu. Level, literacy, decrease access to med. care, half-way, rehab)? @ -No Was there de-escalation of care discussed even if they declined (Discuss DNR or withdrawal of care, Hospice)? DNR status @ -No What co-morbidities impacted this encounter? (DM, HTN, Smoking, COPD, CAD, Cancer, CVA, ARF, Chemo, Hep., AIDS, mental health diagnosis, sleep apnea, morbid obesity)? @ -None Was patient admitted / discharged? Hospital course, mention meds given and route, prescriptions, significant lab abnormalities, going to OR and other pertinent info. @ -Patient was admitted. 89-year-old female presenting for nausea/vomiting x 2 weeks with coffee-ground emesis. Denies chest pain, shortness of breath, abdominal pain. Last bowel movement was today and was normal in color. Vital signs are within acceptable limits. Abdomen is soft and nontender. EKG reveals normal sinus rhythm with first-degree AV block. Lab work including CBC, CMP, magnesium, coags, troponin remarkable for troponin of 0.039. Potassium is 5.5 however is hemolyzed. Repeat troponin was 0.044. Patient has chronically elevated troponins on previous lab work. CT of abdomen pelvis revealed moderate size hiatal hernia, no bowel obstruction or acute findings. Patient was updated on results. Upon reevaluation, patient is asymptomatic. Denies chest pain or shortness of breath. Patient was admitted to observation for IV fluids, Protonix, and antiemetics. Repeat troponin and CBC scheduled for 6 AM tomorrow. Case was discussed with my ED attending Dr. Browne. Undiagnosed new problem with uncertain prognosis? @ -No Drug Therapy requiring intensive monitoring for toxicity (Heparin, Nitro, Insulin, Cardizem)? @ -No Were any procedures done? @ -No Diagnosis/symptom? @ -Hematemesis Acute, or Chronic, or Acute on Chronic? @ -Acute Uncomplicated (without systemic symptoms) or Complicated (systemic symptoms)? @ -Uncomplicated Side effects of treatment? @ -No Exacerbation, Progression, or Severe Exacerbation? @ -No Poses a threat to life or bodily function? How? (Chest pain, USA, NM, pneumonia, PE, COPD, DKA, ARF, appy, cholecystitis, CVA, Diverticulitis, Homicidal, Suicidal, threat to staff... and all critical care pts) @ -Unlikely - Lab Data Result diagrams: 08/22/24 19:39 08/22/24 19:39 Lab Results 08/22/24 08/22/24 08/22/24 Range/Units 19:39 19:39 19:39 WBC 6.9 (3.8-10.6) k/uL RBC 5.15 (3.80-5.40) m/uL Hgb 13.2 (11.4-16.0) gm/dL Hct 42.2 (34.0-46.0) % MCV 81.8 (80.0-100.0) fL MCH 25.6 (25.0-35.0) pg MCHC 31.3 (31.0-37.0) g/dL RDW 15.7 H (11.5-15.5) % Plt Count 284 (150-450) k/uL MPV 8.3 Neutrophils % 70 % Lymphocytes % 20 % Monocytes % 6 % Eosinophils % 3 % Basophils % 1 % Neutrophils # 4.8 (1.3-7.7) k/uL Lymphocytes # 1.4 (1.0-4.8) k/uL Monocytes # 0.4 (0-1.0) k/uL Eosinophils # 0.2 (0-0.7) k/uL Basophils # 0.0 (0-0.2) k/uL Hypochromasia Slight PT (10.0-12.5) sec INR (<1.2) APTT (22.0-30.0) sec Sodium 137 (137-145) mmol/L Potassium 5.5 H (3.5-5.1) mmol/L Chloride 104 (98-107) mmol/L Carbon Dioxide 28 (22-30) mmol/L Anion Gap 5 mmol/L BUN 23 H (7-17) mg/dL Creatinine 0.94 (0.52-1.04) mg/dL Est GFR (CKD-EPI)AfAm 62 (>60 ml/min/1.73 sqM) Est GFR (CKD-EPI)NonAf 54 (>60 ml/min/1.73 sqM) Glucose 156 H (74-99) mg/dL Plasma Lactic Acid Charly 0.9 (0.7-2.0) mmol/L Calcium 9.1 (8.4-10.2) mg/dL Magnesium 1.8 (1.6-2.3) mg/dL Total Bilirubin 0.7 (0.2-1.3) mg/dL AST 35 (14-36) U/L ALT 14 (4-34) U/L Alkaline Phosphatase 87 (38-126) U/L Troponin I (0.000-0.034) ng/mL Total Protein 7.3 (6.3-8.2) g/dL Albumin 4.2 (3.5-5.0) g/dL 08/22/24 08/22/24 08/22/24 Range/Units 19:39 19:39 21:25 WBC (3.8-10.6) k/uL RBC (3.80-5.40) m/uL Hgb (11.4-16.0) gm/dL Hct (34.0-46.0) % MCV (80.0-100.0) fL MCH (25.0-35.0) pg MCHC (31.0-37.0) g/dL RDW (11.5-15.5) % Plt Count (150-450) k/uL MPV Neutrophils % % Lymphocytes % % Monocytes % % Eosinophils % % Basophils % % Neutrophils # (1.3-7.7) k/uL Lymphocytes # (1.0-4.8) k/uL Monocytes # (0-1.0) k/uL Eosinophils # (0-0.7) k/uL Basophils # (0-0.2) k/uL Hypochromasia PT 10.2 (10.0-12.5) sec INR 0.9 (<1.2) APTT 24.4 (22.0-30.0) sec Sodium (137-145) mmol/L Potassium (3.5-5.1) mmol/L Chloride (98-107) mmol/L Carbon Dioxide (22-30) mmol/L Anion Gap mmol/L BUN (7-17) mg/dL Creatinine (0.52-1.04) mg/dL Est GFR (CKD-EPI)AfAm (>60 ml/min/1.73 sqM) Est GFR (CKD-EPI)NonAf (>60 ml/min/1.73 sqM) Glucose (74-99) mg/dL Plasma Lactic Acid Charly (0.7-2.0) mmol/L Calcium (8.4-10.2) mg/dL Magnesium (1.6-2.3) mg/dL Total Bilirubin (0.2-1.3) mg/dL AST (14-36) U/L ALT (4-34) U/L Alkaline Phosphatase (38-126) U/L Troponin I 0.039 H* 0.044 H* (0.000-0.034) ng/mL Total Protein (6.3-8.2) g/dL Albumin (3.5-5.0) g/dL - EKG Data -: EKG Interpreted by Id EKG Comments: EKG reveals normal sinus rhythm with first-degree AV block. Ventricular rate 77 bpm, RI interval 215, QRS duration 92, QT/QTc 360/392 Disposition Clinical Impression: Hematemesis Disposition: ADMITTED IP TO THIS HOSP Referrals: Cristhian Palmer MD [Primary Care Provider] - 1-2 days Time of Disposition: 23:17
[2024-08-22 19:59] LABS: ALT 14 U/L (4-34); African American GFR (CKD) 62 (>60 ml/min/1.73 sqM); Anion Gap 5 mmol/L; Blood Urea Nitrogen 23 mg/dL (7-17); Calcium 9.1 mg/dL (8.4-10.2); Carbon Dioxide 28 mmol/L (22-30); Chloride 104 mmol/L (98-107); Glucose 156 mg/dL (74-99); INR 0.9 (<1.2); Non-African American GFR(CKD) 54 (>60 ml/min/1.73 sqM); Partial Thromboplastin Time 24.4 sec (22.0-30.0); Prothrombin Time 10.2 sec (10.0-12.5); Sodium 137 mmol/L (137-145); Total Bilirubin 0.7 mg/dL (0.2-1.3)
[2024-08-22 20:02] LABS: Basophils % (A) 1 %; Eosinophils # (A) 0.2 k/uL (0-0.7); Eosinophils % (A) 3 %; HCT 42.2 % (34.0-46.0); HGB 13.2 gm/dL (11.4-16.0); Hypochromasia Slight; Lymphocytes # (A) 1.4 k/uL (1.0-4.8); Lymphocytes % (A) 20 %; MCH 25.6 pg (25.0-35.0); MCHC 31.3 g/dL (31.0-37.0); MCV 81.8 fL (80.0-100.0); Mean Platelet Volume 8.3; Monocytes # (A) 0.4 k/uL (0-1.0); Monocytes % (A) 6 %; Neutrophils # (A) 4.8 k/uL (1.3-7.7); Neutrophils % (A) 70 %; Platelet Count 284 k/uL (150-450); RBC 5.15 m/uL (3.80-5.40); RDW 15.7 % (11.5-15.5); WBC 6.9 k/uL (3.8-10.6)
[2024-08-22 20:37] LABS: Magnesium 1.8 mg/dL (1.6-2.3); Potassium 5.5 mmol/L (3.5-5.1); Total Protein 7.3 g/dL (6.3-8.2)
[2024-08-22 20:38] LABS: AST 35 U/L (14-36); Albumin 4.2 g/dL (3.5-5.0); Alkaline Phosphatase 87 U/L (38-126)
[2024-08-22] MEDS: diphenhydrAMINE 50 MG/ML 1 ML VIAL IVP STA (21:29)
[2024-08-22] MEDS: FAMOTIDINE 20 MG/2 ML VIAL IV STA (21:30)
[2024-08-22] MEDS: methylPREDNISolone SOD SUCCI 125 MG/2 ML VIAL IV STA (21:30)
--- NOTE | 2024-08-22 22:37 | CT ---
EXAMINATION TYPE: CT abdomen pelvis w con DATE OF EXAM: 08/22/2024 HISTORY: n/v x two weeks. Daughter reports some coffee ground texture emesis. Unable to raise arms. CT DLP: 1050.7mGycm Automated Exposure Control for Dose Reduction was Utilized. CONTRAST: CT scan of the abdomen and pelvis is performed with IV Contrast, patient injected with 80 mL of Isovu e 300. COMPARISON: None. FINDINGS: LUNG BASES: Surgical change and aortic valve is noted. Mild left basilar linear scarring and/or atele ctasis. LIVER/GB: Cholecystectomy clips are seen. PANCREAS: No significant abnormality is seen. SPLEEN: A few calcifications in the spleen consistent with product of old granulomatous disease. ADRENALS: No significant abnormality is seen. KIDNEYS: Asymmetric diminished size and cortical thinning to the right kidney. Asymmetric at least de layed excretion in the right kidney. Mildly distended bladder. BOWEL: Moderate size hiatal hernia. Approximate 4.2 x 3.5 cm duodenal diverticulum axial image 36 minnie ng the mesenteric border. Surgical changes involving sigmoid colon in the pelvis. No abnormal small o r large bowel dilatation. UTERUS/ADNEXA: Uterus is surgically absent or markedly atrophic in appearance with scattered small bi lateral pelvic phleboliths. LYMPH NODES: No greater than 1cm abdominal or pelvic lymph nodes are appreciated. OSSEOUS STRUCTURES: Scoliosis is present. Multilevel sclerosis and disc space narrowing in the thorac olumbar spine. Multilevel vacuum disc phenomena. OTHER: And moderate calcified plaque of the aorta extends into branch vessels. IMPRESSION: 1. No bowel obstruction. No acute findings are evident. 2. Asymmetric diminished function to the kidneys with poor functioning right kidney noted. [facility], , 08/22/2024 10:34 PM
[2024-08-22] MEDS ORDERED: ONDANSETRON 4 MG/2 ML VIAL IVP PRN (22:58)
[2024-08-22] MEDS ORDERED: NALOXONE 0.4 MG/ML 1 ML VIAL IV PRN (22:58)
[2024-08-23] MEDS: SODIUM CHLORIDE 0.9% 1,000 ML IV SCH
[2024-08-23] MEDS: PANTOPRAZOLE 40 MG/10 ML VIAL IV SCH
[2024-08-23 06:04] LABS: Basophils % (A) 0 %; Eosinophils % (A) 0 %; HCT 39.7 % (34.0-46.0); HGB 12.4 gm/dL (11.4-16.0); Hypochromasia Marked; Lymphocytes # (A) 0.7 k/uL (1.0-4.8); Lymphocytes % (A) 17 %; MCH 25.8 pg (25.0-35.0); MCHC 31.1 g/dL (31.0-37.0); MCV 82.9 fL (80.0-100.0); Mean Platelet Volume 7.6; Monocytes # (A) 0.1 k/uL (0-1.0); Monocytes % (A) 1 %; Neutrophils # (A) 3.1 k/uL (1.3-7.7); Neutrophils % (A) 80 %; Platelet Count 280 k/uL (150-450); RBC 4.79 m/uL (3.80-5.40); RDW 15.6 % (11.5-15.5); WBC 3.9 k/uL (3.8-10.6)
[2024-08-23] MEDS: ACETAMINOPHEN TAB 325 MG TAB PO PRN (06:48)
[2024-08-23] MEDS: traMADol 50 MG TAB PO STA (06:48)
[2024-08-23] MEDS: DAPAGLIFLOZIN PROPANEDIOL 10 MG TABLET PO SCH (10:35)
[2024-08-23] MEDS: carvediloL 6.25 MG TAB PO SCH (10:35)
[2024-08-23 12:21] LABS: Glucose,Whole Blood 116 mg/dL (70-110)
[2024-08-23] MEDS: INSULIN ASPART (NovoLOG) 100 UNIT/ML VIAL SQ SCH (12:23)
[2024-08-23 17:26] LABS: Glucose,Whole Blood 126 mg/dL (70-110)
--- NOTE | 2024-08-23 17:33 | P.HPIM ---
History of Present Illness History of present illness; 89-year-old female with a past medical history of type 2 diabetes, CAD (on Eliquis) with most recent stent placement in 2019, hiatal hernia, and hypertension presents with vomiting for the last 2 weeks. Per the patient's daughter the vomiting has been intermittent over the past couple weeks and over the past few days she can only consume fruit. Per the daughter the patient's vomit looks like coffee grounds in nature over the last 2 weeks as well. Patient's daughter believes this could be related to her hiatal hernia. Per the daughter the patient was sent by Dr. Palmer to the ED. Per the daughter the patient's last bowel movement yesterday was a normal color. Patient denies abdominal pain, chest pain, shortness of breath, fever, chills. Initial lab work from the ER was significant for WBC 6.9, hemoglobin 13.2, MCV 81.8, hematocrit 42.2, PT 10.2, INR 0.9, sodium 137, potassium 5.5, creatinine 0.94, glucose 156, troponin 0.039--> 0.044--> 0.036. EKG done in the ER showed heart rate of 77 bpm, no ST segment elevation or depression seen, no T-wave inversions seen. Sinus rhythm with first-degree AV block, anterior and inferior DC of intermediate age ER CT ABD: No bowel obstruction. No acute findings are evident. Asymmetric diminished function to the kidneys with poor functioning right kidney noted. Patient admitted to internal medicine service REVIEW OF SYSTEMS: CONSTITUTIONAL: No fever, no malaise, no fatigue. HEENT: No recent visual problems or hearing problems. Denied any sore throat. CARDIOVASCULAR: No chest pain, orthopnea, PND, no palpitations, no syncope. PULMONARY: No shortness of breath, no cough, no hemoptysis. GASTROINTESTINAL: No diarrhea, no nausea, no vomiting, no abdominal pain. NEUROLOGICAL: No headaches, no weakness, no numbness. HEMATOLOGICAL: Denies any bleeding or petechiae. GENITOURINARY: Denies any burning micturition, frequency, or urgency. MUSCULOSKELETAL/RHEUMATOLOGICAL: Denies any joint pain, swelling, or any muscle pain. ENDOCRINE: Denies any polyuria or polydipsia. The rest of the 14-point review of systems is negative. PHYSICAL EXAMINATION: GENERAL: The patient is alert and oriented x3, not in any acute distress. Well developed, well nourished. HEENT: Pupils are round and equally reacting to light. EOMI. No scleral icterus. No conjunctival pallor. Normocephalic, atraumatic. No pharyngeal erythema. No thyromegaly. CARDIOVASCULAR: S1 and S2 present. No murmurs, rubs, or gallops. PULMONARY: Chest is clear to auscultation b/l, no wheezing or crackles. ABDOMEN: Soft, nontender, nondistended, normoactive bowel sounds. No palpable organomegaly. MUSCULOSKELETAL: No joint swelling or deformity. EXTREMITIES: No cyanosis, clubbing, or pedal edema. NEUROLOGICAL: Gross neurological examination did not reveal any focal deficits. SKIN: No rashes. Assessment & Plan: Acute: #Hematemesis potentially secondary to hiatal hernia: Patient's hemoglobin has been stable since admission at 13.2 Patient receiving proper GI prophylaxis with Protonix 40 mg IV twice daily Continue to monitor CBC General Surgery consulted, appreciate further recommendations N.p.o. after midnight for potential upper endoscopy tomorrow #Elevated troponins/rule out ACS: Troponins peaked at 0.044, last troponin was 0.036 so downtrending Patient has extensive cardiac history with most recent stent placement in 2019 Continue to monitor #Hyperkalemia: Potentially secondary to medication side effect such as losartan Potassium 5.5 on admission Patient receiving insulin from sliding scale which should slowly decrease potassium Continue to monitor BMP in the a.m. Chronic: #Type 2 diabetes: Started on insulin sliding scale Accu-Cheks #Hypertension: Continue home medications #CAD #Hiatal hernia F: NS 75 cc/h E: None N: N.p.o. after midnight for potential upper endoscopy tomorrow DVT ppx: Lovenox 40 mg SQ daily GI ppx: Protonix 40 mg IV twice daily Dispo: Pending clinical course Ghanshyam Lewis MD PGY-1 FM Dictation was produced using [employer] dictation software. please excuse any grammatical, word or spelling errors. Past Medical History Past Medical History: Diabetes Mellitus, Myocardial Infarction (DC) Additional Past Medical History / Comment(s): hiatal hernia Last Myocardial Infarction Date:: 01/08/2020 History of Any Multi-Drug Resistant Organisms: None Reported Past Surgical History: Appendectomy, Back Surgery, Cholecystectomy, Heart Cathet erization With Stent, Hernia Repair, Hysterectomy Additional Past Surgical History / Comment(s): stents x4 Date of Last Stent Placement:: 01/08/2020 Past Psychological History: No Psychological Hx Reported Smoking Status: Never smoker Past Alcohol Use History: None Reported Past Drug Use History: None Reported Medications and Allergies Home Medications Medication Instructions Recorded Confirmed Type Dexlansoprazole [Dexilant] 60 mg PO DAILY 11/19/17 08/23/24 History Losartan [Cozaar] 25 mg PO DAILY 11/19/17 08/23/24 History Glimepiride [Amaryl] 1 mg PO AC-BRKFST 01/08/20 08/23/24 History Amitriptyline HCl [Elavil] 10 mg PO HS 08/23/24 08/23/24 History Apixaban [Eliquis] 5 mg PO BID 08/23/24 08/23/24 History Baclofen 5 mg PO DAILY PRN 08/23/24 08/23/24 History Dapagliflozin Propanediol [Farxiga] 10 mg PO DAILY 08/23/24 08/23/24 History Ketorolac 0.5% Ophth Soln [Acular 1 drop LEFT EYE TID 08/23/24 08/23/24 History 0.5%] Latanoprost [Latanoprost 0.005%] 1 drop BOTH EYES HS 08/23/24 08/23/24 History carvediloL [Coreg] 6.25 mg PO BID 08/23/24 08/23/24 History traMADol HCl [Ultram] 50 mg PO Q6H PRN 08/23/24 08/23/24 History Allergies Allergy/AdvReac Type Severity Reaction Status Date / Time butorphanol [From Stadol] Allergy Unknown - Verified 08/23/24 08:27 per PCP ciprofloxacin [From Cipro] Allergy Unknown - Verified 08/23/24 08:27 per PCP codeine Allergy Unknown Verified 08/23/24 08:27 iodine Allergy Unknown - Verified 08/23/24 08:27 per PCP meperidine [From Demerol] Allergy Unknown - Verified 08/23/24 08:27 per PCP morphine Allergy Anaphylaxis Verified 08/23/24 08:27 nitrofurantoin Allergy Unknown - Verified 08/23/24 08:27 [From Macrodantin] per PCP Physical Exam Vitals: Vital Signs Temp Pulse Resp BP Pulse Ox 08/23/24 06:56 93 24 158/77 95 08/23/24 04:00 61 16 132/60 96 08/23/24 00:45 77 18 142/60 97 08/22/24 23:55 70 18 186/90 08/22/24 20:47 18 141/67 08/22/24 17:20 97.8 F 79 18 147/74 97 Intake and Output 08/22/24 08/23/24 08/23/24 22:59 06:59 14:59 Other: Weight 77.111 kg Results CBC & Chem 7: 08/23/24 05:41 08/22/24 19:39 Labs: Abnormal Lab Results - Last 24 Hours (Table) 08/22/24 08/22/24 08/22/24 Range/Units 19:39 19:39 19:39 RDW 15.7 H (11.5-15.5) % Lymphocytes # (1.0-4.8) k/uL Potassium 5.5 H (3.5-5.1) mmol/L BUN 23 H (7-17) mg/dL Glucose 156 H (74-99) mg/dL Troponin I 0.039 H* (0.000-0.034) ng/mL 08/22/24 08/23/24 08/23/24 Range/Units 21:25 05:41 05:41 RDW 15.6 H (11.5-15.5) % Lymphocytes # 0.7 L (1.0-4.8) k/uL Potassium (3.5-5.1) mmol/L BUN (7-17) mg/dL Glucose (74-99) mg/dL Troponin I 0.044 H* 0.036 H* (0.000-0.034) ng/mL
[2024-08-23 21:13] LABS: Glucose,Whole Blood 139 mg/dL (70-110)
[2024-08-23] MEDS: traMADol 50 MG TAB PO PRN (21:17)
[2024-08-23] MEDS: KETOROLAC 0.5% OPHTH DROPS 5 ML BTL LEFT EYE SCH (21:19)
[2024-08-23] MEDS: AMITRIPTYLINE HCL 10 MG TAB PO SCH (22:16)
[2024-08-23] MEDS: LATANOPROST 0.005% OPHTH DROPS 2.5 ML BTL BOTH EYES SCH (22:16)
[2024-08-24 06:04] LABS: Glucose,Whole Blood 110 mg/dL (70-110)
[2024-08-24] MEDS: GLIMEPIRIDE 1 MG TAB PO SCH (06:14)
[2024-08-24 06:55] LABS: ALT 14 U/L (4-34); African American GFR (CKD) 59 (>60 ml/min/1.73 sqM); Anion Gap 3 mmol/L; Blood Urea Nitrogen 22 mg/dL (7-17); Calcium 8.8 mg/dL (8.4-10.2); Carbon Dioxide 24 mmol/L (22-30); Chloride 111 mmol/L (98-107); Glucose 110 mg/dL (74-99); Non-African American GFR(CKD) 51 (>60 ml/min/1.73 sqM); Sodium 138 mmol/L (137-145); Total Bilirubin 0.7 mg/dL (0.2-1.3); Total Protein 6.9 g/dL (6.3-8.2)
[2024-08-24 06:57] LABS: Basophils % (A) 0 %; Eosinophils # (A) 0.2 k/uL (0-0.7); Eosinophils % (A) 1 %; HCT 39.9 % (34.0-46.0); HGB 12.6 gm/dL (11.4-16.0); Hypochromasia Moderate; Lymphocytes # (A) 0.9 k/uL (1.0-4.8); Lymphocytes % (A) 8 %; MCH 25.7 pg (25.0-35.0); MCHC 31.5 g/dL (31.0-37.0); MCV 81.5 fL (80.0-100.0); Mean Platelet Volume 8.4; Monocytes # (A) 0.5 k/uL (0-1.0); Monocytes % (A) 4 %; Neutrophils # (A) 9.5 k/uL (1.3-7.7); Neutrophils % (A) 86 %; Platelet Count 253 k/uL (150-450); RBC 4.89 m/uL (3.80-5.40); RDW 15.8 % (11.5-15.5)
[2024-08-24 06:58] LABS: AST 32 U/L (14-36); Alkaline Phosphatase 94 U/L (38-126); Magnesium 1.9 mg/dL (1.6-2.3); Potassium 4.7 mmol/L (3.5-5.1)
[2024-08-24] MEDS: ENOXAPARIN 30 MG/0.3 ML SYRINGE SQ SCH (09:00)
[2024-08-24] MEDS: LOSARTAN 25 MG TAB PO SCH (09:00)
[2024-08-24] MEDS ORDERED: ENOXAPARIN 40 MG/0.4 ML SYRINGE SQ SCH (09:00)
[2024-08-24] MEDS ORDERED: DEXLANSOPRAZOLE 60 MG PO SCH (09:00)
--- NOTE | 2024-08-24 09:25 | P.GSCN ---
History of Present Illness Consult date: 08/24/24 Reason for Consult: Hematemesis History of present illness: This is an 89-year-old female who has issues with nausea vomiting and hematemesis. Patient daughter says she has been vomiting off and on for several weeks. She states she may have seen some coffee grounds in the vomit. Past Medical History Past Medical History: Diabetes Mellitus, Myocardial Infarction ([place]) Additional Past Medical History / Comment(s): hiatal hernia Last Myocardial Infarction Date:: 01/08/2020 History of Any Multi-Drug Resistant Organisms: None Reported Past Surgical History: Appendectomy, Back Surgery, Cholecystectomy, Heart Catheterization With Stent, Hernia Repair, Hysterectomy Additional Past Surgical History / Comment(s): stents x4 Past Anesthesia/Blood Transfusion Reactions: No Reported Reaction Date of Last Stent Placement:: 01/08/2020 Past Psychological History: No Psychological Hx Reported Smoking Status: Never smoker Past Alcohol Use History: None Reported Past Drug Use History: None Reported Medications and Allergies Home Medications Medication Instructions Recorded Confirmed Type Dexlansoprazole [Dexilant] 60 mg PO DAILY 11/19/17 08/23/24 History Losartan [Cozaar] 25 mg PO DAILY 11/19/17 08/23/24 History Glimepiride [Amaryl] 1 mg PO AC-BRKFST 01/08/20 08/23/24 History Amitriptyline HCl [Elavil] 10 mg PO HS 08/23/24 08/23/24 History Apixaban [Eliquis] 5 mg PO BID 08/23/24 08/23/24 History Baclofen 5 mg PO DAILY PRN 08/23/24 08/23/24 History Dapagliflozin Propanediol [Farxiga] 10 mg PO DAILY 08/23/24 08/23/24 History Ketorolac 0.5% Ophth Soln [Acular 1 drop LEFT EYE TID 08/23/24 08/23/24 History 0.5%] Latanoprost [Latanoprost 0.005%] 1 drop BOTH EYES HS 08/23/24 08/23/24 History carvediloL [Coreg] 6.25 mg PO BID 08/23/24 08/23/24 History traMADol HCl [Ultram] 50 mg PO Q6H PRN 08/23/24 08/23/24 History Allergies Allergy/AdvReac Type Severity Reaction Status Date / Time butorphanol [From Stadol] Allergy Unknown - Verified 08/23/24 08:27 per PCP ciprofloxacin [From Cipro] Allergy Unknown - Verified 08/23/24 08:27 per PCP codeine Allergy Unknown Verified 08/23/24 08:27 iodine Allergy Unknown - Verified 08/23/24 08:27 per PCP meperidine [From Demerol] Allergy Unknown - Verified 08/23/24 08:27 per PCP morphine Allergy Anaphylaxis Verified 08/23/24 08:27 nitrofurantoin Allergy Unknown - Verified 08/23/24 08:27 [From Macrodantin] per PCP Surgical - Exam Vital Signs Temp Pulse Resp BP Pulse Ox 97.8 F 79 18 147/74 97 08/22/24 17:20 08/22/24 17:20 08/22/24 17:20 08/22/24 17:20 08/22/24 17:20 - General well developed, no distress - Eyes PERRL - ENT normal pinna - Neck no masses - Respiratory normal expansion - Cardiovascular Rhythm: regular - Abdomen Abdomen: soft, non tender Results - Labs 08/24/24 06:18 08/24/24 06:18 Abnormal Lab Results - Last 24 Hours (Table) 08/23/24 08/23/24 08/23/24 Range/Units 12:20 17:24 21:12 WBC (3.8-10.6) k/uL RDW (11.5-15.5) % Neutrophils # (1.3-7.7) k/uL Lymphocytes # (1.0-4.8) k/uL Chloride (98-107) mmol/L BUN (7-17) mg/dL Glucose (74-99) mg/dL POC Glucose (mg/dL) 116 H 126 H 139 H (70-110) mg/dL 08/24/24 08/24/24 Range/Units 06:18 06:18 WBC 11.0 H (3.8-10.6) k/uL RDW 15.8 H (11.5-15.5) % Neutrophils # 9.5 H (1.3-7.7) k/uL Lymphocytes # 0.9 L (1.0-4.8) k/uL Chloride 111 H (98-107) mmol/L BUN 22 H (7-17) mg/dL Glucose 110 H (74-99) mg/dL POC Glucose (mg/dL) (70-110) mg/dL Diabetes panel 08/24/24 Range/Units 06:18 Sodium 138 (137-145) mmol/L Potassium 4.7 (3.5-5.1) mmol/L Chloride 111 H (98-107) mmol/L Carbon Dioxide 24 (22-30) mmol/L BUN 22 H (7-17) mg/dL Creatinine 0.98 (0.52-1.04) mg/dL Glucose 110 H (74-99) mg/dL Calcium 8.8 (8.4-10.2) mg/dL AST 32 (14-36) U/L ALT 14 (4-34) U/L Alkaline Phosphatase 94 (38-126) U/L Total Protein 6.9 (6.3-8.2) g/dL Albumin 4.0 (3.5-5.0) g/dL Calcium panel 08/24/24 Range/Units 06:18 Calcium 8.8 (8.4-10.2) mg/dL Albumin 4.0 (3.5-5.0) g/dL Pituitary panel 08/24/24 Range/Units 06:18 Sodium 138 (137-145) mmol/L Potassium 4.7 (3.5-5.1) mmol/L Chloride 111 H (98-107) mmol/L Carbon Dioxide 24 (22-30) mmol/L BUN 22 H (7-17) mg/dL Creatinine 0.98 (0.52-1.04) mg/dL Glucose 110 H (74-99) mg/dL Calcium 8.8 (8.4-10.2) mg/dL Adrenal panel 08/24/24 Range/Units 06:18 Sodium 138 (137-145) mmol/L Potassium 4.7 (3.5-5.1) mmol/L Chloride 111 H (98-107) mmol/L Carbon Dioxide 24 (22-30) mmol/L BUN 22 H (7-17) mg/dL Creatinine 0.98 (0.52-1.04) mg/dL Glucose 110 H (74-99) mg/dL Calcium 8.8 (8.4-10.2) mg/dL Total Bilirubin 0.7 (0.2-1.3) mg/dL AST 32 (14-36) U/L ALT 14 (4-34) U/L Alkaline Phosphatase 94 (38-126) U/L Total Protein 6.9 (6.3-8.2) g/dL Albumin 4.0 (3.5-5.0) g/dL Assessment and Plan Assessment: History of vomiting with possible coffee-ground's. Patient will undergo EGD with Dr. ORTEGA on Monday.
--- NOTE | 2024-08-24 10:34 | P.PN ---
Subjective History of present illness; 89-year-old female with a past medical history of type 2 diabetes, CAD (on Eliquis) with most recent stent placement in 2019, hiatal hernia, and hypertension presents with vomiting for the last 2 weeks. Per the patient's daughter the vomiting has been intermittent over the past couple weeks and over the past few days she can only consume fruit. Per the daughter the patient's vomit looks like coffee grounds in nature over the last 2 weeks as well. Patient's daughter believes this could be related to her hiatal hernia. Per the daughter the patient was sent by Dr. Palmer to the ED. Per the daughter the patient's last bowel movement yesterday was a normal color. Patient denies abdominal pain, chest pain, shortness of breath, fever, chills. Initial lab work from the ER was significant for WBC 6.9, hemoglobin 13.2, MCV 81.8, hematocrit 42.2, PT 10.2, INR 0.9, sodium 137, potassium 5.5, creatinine 0.94, glucose 156, troponin 0.039--> 0.044--> 0.036. EKG done in the ER showed heart rate of 77 bpm, no ST segment elevation or depression seen, no T-wave inversions seen. Sinus rhythm with first-degree AV block, anterior and inferior SC of intermediate age ER CT ABD: No bowel obstruction. No acute findings are evident. Asymmetric diminished function to the kidneys with poor functioning right kidney noted. Subjective: 08/24/2024: Patient seen at bedside. No significant overnight events. Patient has no current complaints denies any new vomiting. Admits to not having a bowel movement having some constipation. Upper endoscopy scheduled for Monday with Dr. Whittaker Pertinent positives and negatives discussed above, a complete review of systems was preformed and all the other sytems were negative. Vitals Signs Reveiwed. General: non toxic, no distress, appears at stated age, normal weight Derm: no unusual rashes/lesions, warm Head: atraumatic, normocephalic, symmetric Eyes: EOMI, no lid lag, anicteric sclera, pupils equal round reactive to light ENT: Nose and ears atraumatic Neck: No cervical lymphadenopathy, trachea midline, supple Mouth: no lip lesion, mucus membranes moist Cardiovascular: S1S2 reg, no murmur, positive dorsalis pedis pulse bilateral, no edema Lungs: Decreased air entry bilaterally, no rhonchi, no rales, no accessory muscle use Abdominal: soft, nontender to palpation, no guarding Ext: muscle strength 5 out of 5 in all 4 extremities grossly, no gross muscle at rophy, no contractures, Neuro: CN II-XI grossly intact, no gross focal neuro deficits Psych: Alert, oriented, appropriate affect Data Reveiwed Today: Patient Labs: WBC 11, hemoglobin 12.6, MCV 81.5, neutrophils 9.5, sodium 138, potassium 4.7, chloride 111, creatinine 0.98, glucose 110, ordered UA pending results Imaging: No new imaging Assessment & Plan: Acute: #Hematemesis potentially secondary to hiatal hernia: Patient's hemoglobin has been stable since admission at 13.2 Patient receiving proper GI prophylaxis with Protonix 40 mg IV twice daily Continue to monitor CBC General Surgery consulted, appreciate further recommendations Upper endoscopy scheduled for Monday with Dr. Whittaker, on clear liquid diet till then #Elevated troponins/rule out ACS: Troponins peaked at 0.044, last troponin was 0.036 so downtrending Patient has extensive cardiac history with most recent stent placement in 2019 Continue to monitor #Hyperkalemia: Potentially secondary to medication side effect such as losartan. Improved Potassium 5.5 on admission Patient receiving insulin from sliding scale which should slowly decrease potassium Continue to monitor BMP in the a.m. Chronic: #Type 2 diabetes: Started on insulin sliding scale Accu-Cheks #Hypertension: Continue home medications #CAD #Hiatal hernia F: NS 75 cc/h E: None N: Clear liquid diet DVT ppx: Lovenox 40 mg SQ daily GI ppx: Protonix 40 mg IV twice daily Dispo: Pending clinical course Ghanshyam Lewis MD PGY-1 FM Code Status: Full code Objective - Vital Signs Vital signs: Vital Signs Temp 98.1 F 08/23/24 23:25 Pulse 81 08/24/24 04:00 Resp 18 08/24/24 04:00 BP 145/69 08/24/24 04:00 Pulse Ox 98 08/24/24 04:00 FiO2 Intake & Output 08/23/24 08/24/24 08/24/24 18:59 06:59 18:59 Weight 77.111 kg Other: Voiding Method Toilet - Labs CBC & Chem 7: 08/24/24 06:18 10/19/24 06:18 Labs: Abnormal Lab Results - Last 24 Hours (Table) 08/23/24 08/23/24 08/23/24 Range/Units 12:20 17:24 21:12 WBC (3.8-10.6) k/uL RDW (11.5-15.5) % Neutrophils # (1.3-7.7) k/uL Lymphocytes # (1.0-4.8) k/uL Chloride (98-107) mmol/L BUN (7-17) mg/dL Glucose (74-99) mg/dL POC Glucose (mg/dL) 116 H 126 H 139 H (70-110) mg/dL 08/24/24 08/24/24 Range/Units 06:18 06:18 WBC 11.0 H (3.8-10.6) k/uL RDW 15.8 H (11.5-15.5) % Neutrophils # 9.5 H (1.3-7.7) k/uL Lymphocytes # 0.9 L (1.0-4.8) k/uL Chloride 111 H (98-107) mmol/L BUN 22 H (7-17) mg/dL Glucose 110 H (74-99) mg/dL POC Glucose (mg/dL) (70-110) mg/dL
[2024-08-24 11:25] VITALS: BMI 38.5
[2024-08-24 11:51] LABS: Appearance,Urine Turbid (Clear); Bilirubin,Urine Negative (Negative); Blood,Urine Moderate (Negative); Color,Urine Colorless; Glucose,Urine (UA) 4+ (Negative); Ketones,Urine Negative (Negative); Leukocyte Esterase,Urine Large (Negative); Mucus,Urine Rare /hpf; Nitrite,Urine Negative (Negative); PH, Urine 5.5 (5.0-8.0); Protein,Urine 1+ (Negative); RBC,Urine 19 /hpf (0-5); Specific Gravity,Urine 1.019 (1.001-1.035); Squamous Epithelial Cell,Urine 2 /hpf (0-4); Urobilinogen,Urine <2.0 mg/dL (<2.0); WBC,Urine >182 /hpf (0-5)
[2024-08-24 11:54] LABS: Glucose,Whole Blood 176 mg/dL (70-110)
[2024-08-24] MEDS: BACLOFEN 10 MG TAB PO PRN (15:00)
[2024-08-24 16:23] LABS: Glucose,Whole Blood 94 mg/dL (70-110)
[2024-08-24] MEDS: ACETAMINOPHEN IV (For NPO) 1,000 MG in EMPTY BAG 1 BAG IVPB ONE (17:43)
--- NOTE | 2024-08-24 17:51 | XR ---
EXAMINATION TYPE: XR Hip Complete RT DATE OF EXAM: 08/24/2024 5:44 PM CLINICAL INDICATION: Female, 89 years old with history of right hip pain; [facility] COMPARISON: 11/19/2017 TECHNIQUE: XR Hip Complete RT; hip was examined in the frontal and lateral projections and a AP pelvi s. FINDINGS: No evidence for acute process, joint dislocation or significant soft tissue swelling. Osteo phyte formation of the superior acetabulum of the hip. There is mild joint space narrowing. Severe at herosclerosis of the arterial vasculature. IMPRESSION: 1. No evidence for acute process. 2. 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 [facility], , 08/24/2024 5:49 PM
[2024-08-24 19:53] LABS: Glucose,Whole Blood 142 mg/dL (70-110)
[2024-08-25 06:14] LABS: Glucose,Whole Blood 91 mg/dL (70-110)
[2024-08-25] MEDS: KETOROLAC 15 MG/ML 1 ML VIAL IVP STA (06:30)
[2024-08-25 08:15] LABS: African American GFR (CKD) 68 (>60 ml/min/1.73 sqM); Anion Gap 7 mmol/L; Blood Urea Nitrogen 17 mg/dL (7-17); Calcium 8.7 mg/dL (8.4-10.2); Carbon Dioxide 22 mmol/L (22-30); Chloride 106 mmol/L (98-107); Glucose 73 mg/dL (74-99); HGB 10.7 gm/dL (11.4-16.0); Hypochromasia Marked; MCHC 29.8 g/dL (31.0-37.0); Mean Platelet Volume 8.8; Non-African American GFR(CKD) 59 (>60 ml/min/1.73 sqM); Platelet Count 200 k/uL (150-450); Potassium 4.5 mmol/L (3.5-5.1); RBC 4.13 m/uL (3.80-5.40); RDW 15.7 % (11.5-15.5); Sodium 135 mmol/L (137-145); WBC 5.9 k/uL (3.8-10.6)
[2024-08-25 08:16] LABS: MCV 87.2 fL (80.0-100.0)
--- NOTE | 2024-08-25 11:37 | P.CRDCN ---
History of Present Illness Consult date: 08/25/24 History of present illness: HISTORY OF PRESENTING ILLNESS 89-year-old with past medical history of TAVR valve, CAD with prior PCI to LAD [place] [address] Chavira. He also has prior history of TIA, type 2 diabetes, hiatal hernia, hypertension. Apparently patient is on Eliquis at home. But patient reports that she has not been taking it for last 2 to 3 weeks as she has been running out of it. Presented to the hospital because of having 1 week of nausea and vomiting along with coffee-ground emesis. Admission hemoglobin was 13.2, repeat dropped to 10.7, creatinine is 0.8 and stable, initial troponin was elevated at 0.036. REVIEW OF SYSTEMS 14 point review of system is negative except what is mentioned above in HPI. PHYSICAL EXAMINATION Vital signs reviewed. Head: Normocephalic. Eyes: Sclerae nonicteric. Neck: Brisk carotid upstroke, no jugular venous distention. Lungs: Clear to auscultation. Heart: Regular rate and rhythm, S1-S2, no S3, no murmur or rub. Abdomen: Soft nontender, positive bowel sounds. Extremities: No edema, intact distal pulses. Neuro: Alert, oritented, no focal deficits. Detailed neuro exam was not performed. ASSESSMENT Bradycardia and Second degree AV block GI bleeding coffee-ground emesis Acute anemia History of CAD status post PCI to LAD in 2020 Prior history of TAVR Hypertension Dyslipidemia Obesity PLAN Repeat troponin level Discontinue Coreg because of low resting heart rate and intermittent drop of QRSs. Monitor telemetry for any pauses. Notify cardiology if there is any pause more than 3 seconds or patient has syncopal episodes. Continue aspirin because of prior history of TAVR TIA and CAD with PCI Obtain clinic notes. If no recent echo, obtain an updated echocardiogram. Obtain the reason why patient is on Eliquis at home. Okay to proceed to EGD and colonoscopy from cardiac standpoint Give IV iron On outpatient basis if patient has indication for anticoagulation, consider watchman's procedure. Harvinder Dumas MD, FACC, RPVI Thank you for allowing [facility] to participate in [facility] patient's care. Feel free to reach out in case of any followup questions. Past Medical History Past Medical History: Diabetes Mellitus, Myocardial Infarction ([place]) Additional Past Medical History / Comment(s): hiatal hernia Last Myocardial Infarction Date:: 01/08/2020 History of Any Multi-Drug Resistant Organisms: None Reported Past Surgical History: Appendectomy, Back Surgery, Cholecystectomy, Heart Catheterization With Stent, Hernia Repair, Hysterectomy Additional Past Surgical History / Comment(s): stents x4 Past Anesthesia/Blood Transfusion Reactions: No Reported Reaction Date of Last Stent Placement:: 01/08/2020 Past Psychological History: No Psychological Hx Reported Smoking Status: Never smoker Past Alcohol Use History: None Reported Past Drug Use History: None Reported Medications and Allergies Home Medications Medication Instructions Recorded Confirmed Type Dexlansoprazole [Dexilant] 60 mg PO DAILY 11/19/17 08/23/24 History Losartan [Cozaar] 25 mg PO DAILY 11/19/17 08/23/24 History Glimepiride [Amaryl] 1 mg PO AC-BRKFST 01/08/20 08/23/24 History Amitriptyline HCl [Elavil] 10 mg PO HS 08/23/24 08/23/24 History Apixaban [Eliquis] 5 mg PO BID 08/23/24 08/23/24 History Baclofen 5 mg PO DAILY PRN 08/23/24 08/23/24 History Dapagliflozin Propanediol [Farxiga] 10 mg PO DAILY 08/23/24 08/23/24 History Ketorolac 0.5% Ophth Soln [Acular 1 drop LEFT EYE TID 08/23/24 08/23/24 History 0.5%] Latanoprost [Latanoprost 0.005%] 1 drop BOTH EYES HS 08/23/24 08/23/24 History carvediloL [Coreg] 6.25 mg PO BID 08/23/24 08/23/24 History traMADol HCl [Ultram] 50 mg PO Q6H PRN 08/23/24 08/23/24 History Allergies Allergy/AdvReac Type Severity Reaction Status Date / Time butorphanol [From Stadol] Allergy Unknown - Verified 08/23/24 08:27 per PCP ciprofloxacin [From Cipro] Allergy Unknown - Verified 08/23/24 08:27 per PCP codeine Allergy Unknown Verified 08/23/24 08:27 iodine Allergy Unknown - Verified 08/23/24 08:27 per PCP meperidine [From Demerol] Allergy Unknown - Verified 08/23/24 08:27 per PCP morphine Allergy Anaphylaxis Verified 08/23/24 08:27 nitrofurantoin Allergy Unknown - Verified 08/23/24 08:27 [From Macrodantin] per PCP Physical Exam Vitals: Vital Signs Temp Pulse Resp BP Pulse Ox 08/25/24 11:20 71 16 137/72 98 08/25/24 08:13 98.1 F 73 16 113/59 97 08/25/24 04:00 97.5 F L 83 18 142/63 98 08/25/24 01:51 67 18 08/25/24 00:00 97.6 F 67 18 122/58 97 08/24/24 20:00 97.8 F 72 18 141/62 97 08/24/24 15:25 98.3 F 94 18 135/79 97 Intake and Output 08/24/24 08/25/24 08/25/24 22:59 06:59 14:59 Intake Total 540 Balance 540 Intake: Oral 540 Other: Voiding Method Toilet Toilet Toilet # Voids 3 1 Weight 79 kg Results 08/25/24 06:57 08/25/24 06:57 CBC 08/25/24 Range/Units 06:57 WBC 5.9 (3.8-10.6) k/uL RBC 4.13 (3.80-5.40) m/uL Hgb 10.7 L (11.4-16.0) gm/dL Hct 36.0 (34.0-46.0) % Plt Count 200 (150-450) k/uL Comprehensive Metabolic Panel 08/25/24 Range/Units 06:57 Sodium 135 L (137-145) mmol/L Potassium 4.5 (3.5-5.1) mmol/L Chloride 106 (98-107) mmol/L Carbon Dioxide 22 (22-30) mmol/L BUN 17 (7-17) mg/dL Creatinine 0.87 (0.52-1.04) mg/dL Glucose 73 L (74-99) mg/dL Calcium 8.7 (8.4-10.2) mg/dL Current Medications Generic Name Dose Route Start Last Admin Trade Name Freq PRN Reason Stop Dose Admin Acetaminophen 650 mg 08/24/24 17:09 Acetaminophen Tab 325 Mg Tab PO Q6HR PRN Fever and/ or Pain Amitriptyline HCl 10 mg 08/23/24 21:00 08/24/24 20:10 Amitriptyline Hcl 10 Mg Tab PO 10 mg HS NIKI Administration Aspirin 81 mg 08/25/24 11:30 Aspirin 81 Mg PO DAILY NIKI Baclofen 5 mg 08/23/24 09:05 08/24/24 15:00 Baclofen 10 Mg Tab PO 5 mg DAILY PRN Administration Muscle Spasm Dapagliflozin 10 mg 08/23/24 09:15 08/25/24 08:19 Dapagliflozin Propanediol 10 Mg Tablet PO 10 mg DAILY NIKI Administration Enoxaparin Sodium 30 mg 08/24/24 09:00 08/25/24 08:20 Enoxaparin 30 Mg/0.3 Ml Syringe SQ 30 mg DAILY NIKI Administration Glimepiride 1 mg 08/24/24 07:30 08/25/24 06:30 Glimepiride 1 Mg Tab PO 1 mg AC-BRKFST NIKI Administration Insulin Aspart 0 unit 08/23/24 12:30 08/25/24 06:31 Insulin Aspart (Novolog) 100 Unit/Ml Vial SQ Not Given ACHS [facility] Protocol Ketorolac Tromethamine 1 drops 08/23/24 16:00 08/25/24 08:20 Ketorolac 0.5% Ophth Drops 5 Ml Btl LEFT EYE 1 drops TID NIKI Administration Latanoprost 1 drops 08/23/24 21:00 08/24/24 20:11 Latanoprost 0.005% Ophth Drops 2.5 Ml Btl BOTH EYES 1 drops HS NIKI Administration Losartan Potassium 25 mg 08/24/24 09:00 08/25/24 08:19 Losartan 25 Mg Tab PO 25 mg DAILY NIKI Administration Naloxone HCl 0.2 mg 08/22/24 22:58 Naloxone 0.4 Mg/Ml 1 Ml Vial IV Q2M PRN Opioid Reversal Ondansetron HCl 4 mg 08/22/24 22:58 Ondansetron 4 Mg/2 Ml Vial IVP Q8HR PRN Nausea And Vomiting Pantoprazole Sodium 40 mg 08/22/24 23:00 08/25/24 08:19 Pantoprazole 40 Mg/10 Ml Vial IV 40 mg BID NIKI Administration Tramadol HCl 50 mg 08/23/24 09:05 08/25/24 11:26 Tramadol 50 Mg Tab PO 50 mg Q6H PRN Administration Pain Intake and Output 08/24/24 08/25/24 08/25/24 22:59 06:59 14:59 Intake Total 540 Balance 540 Intake: Oral 540 Other: Voiding Method Toilet Toilet Toilet # Voids 3 1 Weight 79 kg 08/25/24 06:57 08/25/24 06:57
[2024-08-25 11:43] LABS: Glucose,Whole Blood 149 mg/dL (70-110)
[2024-08-25] MEDS: ASPIRIN 81 MG PO SCH (12:04)
[2024-08-25] MEDS: SODIUM FERRIC GLUCONAT-SUCROSE 125 MG in SODIUM CHLORIDE 0.9% 100 ML IVPB SCH (13:35)
[2024-08-25 16:37] LABS: Glucose,Whole Blood 133 mg/dL (70-110)
[2024-08-25 20:17] LABS: Glucose,Whole Blood 156 mg/dL (70-110)
[2024-08-25] MEDS: ACETAMINOPHEN TAB 325 MG TAB PO PRN (23:21)
--- NOTE | 2024-08-26 05:10 | P.PN ---
Subjective Progress Note Date: 08/25/24 History of present illness; 89-year-old female with a past medical history of type 2 diabetes, CAD (on Eliquis) with most recent stent placement in 2019, hiatal hernia, and hypertension presents with vomiting for the last 2 weeks. Per the patient's daughter the vomiting has been intermittent over the past couple weeks and over the past few days she can only consume fruit. Per the daughter the patient's vomit looks like coffee grounds in nature over the last 2 weeks as well. Patient's daughter believes this could be related to her hiatal hernia. Per the daughter the patient was sent by Dr. Palmer to the ED. Per the daughter the patient's last bowel movement yesterday was a normal color. Cynthia ent denies abdominal pain, chest pain, shortness of breath, fever, chills. Initial lab work from the ER was significant for WBC 6.9, hemoglobin 13.2, MCV 81.8, hematocrit 42.2, PT 10.2, INR 0.9, sodium 137, potassium 5.5, creatinine 0.94, glucose 156, troponin 0.039--> 0.044--> 0.036. EKG done in the ER showed heart rate of 77 bpm, no ST segment elevation or depression seen, no T-wave inversions seen. Sinus rhythm with first-degree AV block, anterior and inferior NM of intermediate age ER CT ABD: No bowel obstruction. No acute findings are evident. Asymmetric diminished function to the kidneys with poor functioning right kidney noted. Subjective: 08/24/2024: Patient seen at bedside. No significant overnight events. Patient has no current complaints denies any new vomiting. Admits to not having a bowel movement having some constipation. Upper endoscopy scheduled for Monday with Dr. Whittaker 08/25/2024 Patient is seen and evaluated in follow-up with no acute issues noted overnight. Patient continues to be extremely anxious about overall wellbeing and is scheduled for EGD on Monday with Dr. Brewer. Patient will be n.p.o. at midnight. Patient being evaluated by cardiology given history of TAVR. Patient was on Eliquis previously and had been running out so has not been taking as prescribed. No further reports of hematemesis or active bleeding noted and there was a drop in hemoglobin currently 10.7. Patient is afebrile with no reports of chest pain or shortness of breath. Will await EGD report Review of systems: Constitutional: No reports of fatigue, fever, or chills, feeling slightly anxious Cardiovascular: No reports of chest pain or palpitations Respiratory: No reports of shortness of breath or cough GI: No reports of nausea, vomiting, or diarrhea : No reports of dysuria or retention Neurovascular: reports of generalized weakness Physical exam: Gen: This is a 89-year-old female who is awake, alert and oriented x 2-3, anxious, well-developed, elderly appearing, obese HEENT: Head is atraumatic, normocephalic. Pupils equal, round. Sclerae is an icteric. NECK: Supple. No JVD. No lymphadenopathy. No thyromegaly. LUNGS: Diminished breath sounds bilaterally otherwise clear to auscultation. No wheezes or rhonchi. No intercostal retractions. HEART: S1, S2 are muffled ABDOMEN: Soft. Bowel sounds are present. No masses. No tenderness. EXTREMITIES: No pedal edema. No calf tenderness. NEUROLOGICAL: Patient is awake, alert and oriented x3. Cranial nerves 2 through 12 are grossly intact. Diffusely weak Assessment & Plan: Acute: #Hematemesis potentially secondary to hiatal hernia: Patient's hemoglobin was on admission at 13.2, currently 10 with no active bleeding noted Continue GI prophylaxis with Protonix 40 mg IV twice daily Continue to monitor CBC General Surgery consulted, appreciate further recommendations Upper endoscopy scheduled for Monday [address] Dr. Brewer, on clear liquid diet till then and n.p.o. at midnight #Elevated troponins/rule out ACS: Troponins peaked at 0.044, last troponin was 0.036 so downtrending Patient has extensive cardiac history with most recent stent placement in 2019 Continue to monitor, cardiology following, repeat troponin ordered #Hyperkalemia: Potentially secondary to medication side effect such as losartan. Improved Potassium 5.5 on admission Patient receiving insulin from sliding scale which should slowly decrease potassium Continue to monitor BMP in the a.m. Chronic: #Type 2 diabetes: Started on insulin sliding scale and will adjust insulins accordingly Accu-Cheks #Hypertension: Continue home medications, Coreg being held per cardiology at this time #CAD #Hiatal hernia # Obesity with a BMI 39.0 F: NS 75 cc/h E: None N: Clear liquid diet, n.p.o. at midnight for EGD on 08/26/2024 DVT ppx: Lovenox 40 mg SQ daily GI ppx: Protonix 40 mg IV twice daily Dispo: Pending clinical course, await EGD report that is scheduled for 08/26/[address] Brewer. Cardiology has evaluated the patient and cleared her for EGD The impression and plan of care has been dictated by Deirdre Lewis, Nurse Practitioner as directed. Dr. Brain MD I have performed a history and examination and MDM of this patient, discussed the same with the dictator, and agree with the dictator's assessment and plan as written ,documented as a scribe. Based on total visit time, I have performed more than 50% of the visit. Objective - Vital Signs Vital signs: Vital Signs Temp 98.1 F 08/25/24 08:13 Pulse 73 08/25/24 08:13 Resp 16 08/25/24 08:13 BP 113/59 08/25/24 08:13 Pulse Ox 97 08/25/24 08:13 FiO2 Intake & Output 08/24/24 08/25/24 08/25/24 18:59 06:59 18:59 Output Total 100 Balance -100 Weight 78.063 kg 79 kg Output: Urine 100 Other: Voiding Method Toilet Toilet # Voids 3 1 # Bowel Movements 2 - Labs CBC & Chem 7: 08/25/24 06:57 08/25/24 06:57 Labs: Abnormal Lab Results - Last 24 Hours (Table) 08/24/24 08/24/24 08/24/24 Range/Units 10:44 11:53 19:51 Hgb (11.4-16.0) gm/dL MCHC (31.0-37.0) g/dL RDW (11.5-15.5) % Sodium (137-145) mmol/L Glucose (74-99) mg/dL POC Glucose (mg/dL) 176 H 142 H (70-110) mg/dL Urine Appearance Turbid H (Clear) Urine Protein 1+ H (Negative) Urine Glucose (UA) 4+ H (Negative) Urine Blood Moderate H (Negative) Ur Leukocyte Esterase Large H (Negative) Urine RBC 19 H (0-5) /hpf Urine WBC >182 H (0-5) /hpf Urine WBC Clumps Few H (None) /hpf Urine Mucus Rare H (None) /hpf 08/25/24 08/25/24 Range/Units 06:57 06:57 Hgb 10.7 L (11.4-16.0) gm/dL MCHC 29.8 L (31.0-37.0) g/dL RDW 15.7 H (11.5-15.5) % Sodium 135 L (137-145) mmol/L Glucose 73 L (74-99) mg/dL POC Glucose (mg/dL) (70-110) mg/dL Urine Appearance (Clear) Urine Protein (Negative) Urine Glucose (UA) (Negative) Urine Blood (Negative) Ur Leukocyte Esterase (Negative) Urine RBC (0-5) /hpf Urine WBC (0-5) /hpf Urine WBC Clumps (None) /hpf Urine Mucus (None) /hpf
[2024-08-26 06:16] LABS: Glucose,Whole Blood 85 mg/dL (70-110)
[2024-08-26 06:28] LABS: African American GFR (CKD) 64 (>60 ml/min/1.73 sqM); Anion Gap 2 mmol/L; Blood Urea Nitrogen 15 mg/dL (7-17); Calcium 8.7 mg/dL (8.4-10.2); Carbon Dioxide 26 mmol/L (22-30); Chloride 109 mmol/L (98-107); Glucose 93 mg/dL (74-99); Non-African American GFR(CKD) 55 (>60 ml/min/1.73 sqM); Potassium 4.4 mmol/L (3.5-5.1); Sodium 137 mmol/L (137-145)
[2024-08-26 06:32] LABS: Basophils % (A) 1 %; Eosinophils # (A) 0.2 k/uL (0-0.7); Eosinophils % (A) 3 %; HCT 37.6 % (34.0-46.0); HGB 11.6 gm/dL (11.4-16.0); Hypochromasia Marked; Lymphocytes # (A) 0.9 k/uL (1.0-4.8); Lymphocytes % (A) 15 %; MCH 25.9 pg (25.0-35.0); MCV 83.6 fL (80.0-100.0); Monocytes # (A) 0.4 k/uL (0-1.0); Monocytes % (A) 7 %; Neutrophils # (A) 4.5 k/uL (1.3-7.7); Neutrophils % (A) 74 %; Platelet Count 225 k/uL (150-450); RBC 4.49 m/uL (3.80-5.40); RDW 15.6 % (11.5-15.5); WBC 6.1 k/uL (3.8-10.6)
[2024-08-26] MEDS: ENOXAPARIN 40 MG/0.4 ML SYRINGE SQ SCH (09:49)
[2024-08-26 10:56] VITALS: RESP 18
[2024-08-26 11:40] LABS: Glucose,Whole Blood 90 mg/dL (70-110)
--- NOTE | 2024-08-26 13:33 | P.PN ---
Subjective Progress Note Date: 08/26/24 HISTORY OF PRESENTING ILLNESS 89-year-old with past medical history of TAVR valve, CAD with prior PCI to LAD [place] [address] Chavira. He also has prior history of TIA, type 2 diabetes, hiatal hernia, hypertension. Apparently patient is on Eliquis at home. But patient reports that she has not been taking it for last 2 to 3 weeks as she has been running out of it. Presented to the hospital because of having 1 week of nausea and vomiting along with coffee-ground emesis. Admission hemoglobin was 13.2, repeat dropped to 10.7, creatinine is 0.8 and stable, initial troponin was elevated at 0.036. 09/04 Patient states she is not been able to eat because she is scheduled for procedure today. There are no orders in the computer, general surgery will be contacted regarding this. Heart rate is running between 68 and 80, blood pressure 175/97, pulse ox 99% on 2 L nasal cannula. Repeat blood work reveals hemoglobin 11.6. Creatinine 0.93, BUN 15. Repeat troponin was 0.026. Patient denies having any chest pain or shortness of breath. PHYSICAL EXAMINATION Vital signs reviewed. Head: Normocephalic. Eyes: Sclerae nonicteric. Neck: Brisk carotid upstroke, no jugular venous distention. Lungs: Clear to auscultation. Heart: Regular rate and rhythm, S1-S2, no S3, no murmur or rub. Abdomen: Soft nontender, positive bowel sounds. Extremities: No edema, intact distal pulses. Neuro: Alert, oritented, no focal deficits. Detailed neuro exam was not performed. ASSESSMENT Bradycardia and Second degree AV block GI bleeding coffee-ground emesis Acute anemia History of CAD status post PCI to LAD in 2019 Prior history of TAVR Hypertension Dyslipidemia Obesity PLAN Continue to hold Coreg due to bradycardia Continue aspirin because of prior history of TAVR TIA and CAD with PCI Okay to proceed to EGD and colonoscopy from cardiac standpoint Cardiology will sign off this case and follow on an as-needed basis. Please reconsult for any new concerns. Patient may follow-up in the office in one to 2 weeks. Nurse practitioner note has been reviewed, I agree with documented findings and plan of care. Patient was seen and examined. Objective - Vital Signs Vital signs: Vital Signs Temp 97.6 F 08/26/24 04:00 Pulse 83 08/26/24 04:00 Resp 16 08/26/24 04:00 BP 162/83 08/26/24 04:00 Pulse Ox 98 08/26/24 04:00 FiO2 Intake & Output 08/25/24 08/26/24 08/26/24 18:59 06:59 18:59 Intake Total 1080 10 Balance 1080 10 Weight 78.2 kg Intake: IV 10 0.9 10 Oral 1080 Other: Voiding Method Toilet Toilet # Voids 1 1 - Labs CBC & Chem 7: 08/26/24 05:58 08/26/24 05:58 Labs: Abnormal Lab Results - Last 24 Hours (Table) 08/25/24 08/25/24 08/25/24 Range/Units 11:41 16:35 20:16 RDW (11.5-15.5) % Lymphocytes # (1.0-4.8) k/uL Chloride (98-107) mmol/L POC Glucose (mg/dL) 149 H 133 H 156 H (70-110) mg/dL 08/26/24 08/26/24 Range/Units 05:58 05:58 RDW 15.6 H (11.5-15.5) % Lymphocytes # 0.9 L (1.0-4.8) k/uL Chloride 109 H (98-107) mmol/L POC Glucose (mg/dL) (70-110) mg/dL
[2024-08-26] MEDS: IV FLUID CONTINUATION 1,000 ML IV ONE (13:34)
--- NOTE | 2024-08-26 13:36 | P.PN ---
Subjective History of present illness; 89-year-old female with a past medical history of type 2 diabetes, CAD (on Eliquis) with most recent stent placement in 2019, hiatal hernia, and hypertension presents with vomiting for the last 2 weeks. Per the patient's daughter the vomiting has been intermittent over the past couple weeks and over the past few days she can only consume fruit. Per the daughter the patient's vomit looks like coffee grounds in nature over the last 2 weeks as well. Patient's daughter believes this could be related to her hiatal hernia. Per the daughter the patient was sent by Dr. Palmer to the ED. Per the daughter the patient's last bowel movement yesterday was a normal color. Patient denies abdominal pain, chest pain, shortness of breath, fever, chills. Initial lab work from the ER was significant for WBC 6.9, hemoglobin 13.2, MCV 81.8, hematocrit 42.2, PT 10.2, INR 0.9, sodium 137, potassium 5.5, creatinine 0.94, glucose 156, troponin 0.039--> 0.044--> 0.036. EKG done in the ER showed heart rate of 77 bpm, no ST segment elevation or depression seen, no T-wave inversions seen. Sinus rhythm with first-degree AV block, anterior and inferior TN of intermediate age ER CT ABD: No bowel obstruction. No acute findings are evident. Asymmetric diminished function to the kidneys with poor functioning right kidney noted. Subjective: 08/24/2024: Patient seen at bedside. No significant overnight events. Patient has no current complaints denies any new vomiting. Admits to not having a bowel movement having some constipation. Upper endoscopy scheduled for Monday with Dr. Whittaker 08/25/2024 Patient is seen and evaluated in follow-up with no acute issues noted overnight. Patient continues to be extremely anxious about overall wellbeing and is scheduled for EGD on Monday with Dr. Brewer. Patient will be n.p.o. at midnight. Patient being evaluated by cardiology given history of TAVR. Patient was on Eliquis previously and had been running out so has not been taking as prescribed. No further reports of hematemesis or active bleeding noted and there was a drop in hemoglobin currently 10.7. Patient is afebrile with no reports of chest pain or shortness of breath. Will await EGD report. Review of systems: Constitutional: No reports of fatigue, fever, or chills, feeling slightly anxious Cardiovascular: No reports of chest pain or palpitations Respiratory: No reports of shortness of breath or cough GI: No reports of nausea, vomiting, or diarrhea : No reports of dysuria or retention Neurovascular: reports of generalized weakness Physical exam: Gen: This is a 89-year-old female who is awake, alert and oriented x 2-3, anxious, well-developed, elderly appearing, obese HEENT: Head is atraumatic, normocephalic. Pupils equal, round. Sclerae is anicteric. NECK: Supple. No JVD. No lymphadenopathy. No thyromegaly. LUNGS: Diminished breath sounds bilaterally otherwise clear to auscultation. No wheezes or rhonchi. No intercostal retractions. HEART: S1, S2 are muffled ABDOMEN: Soft. Bowel sounds are present. No masses. No tenderness. EXTREMITIES: No pedal edema. No calf tenderness. NEUROLOGICAL: Patient is awake, alert and oriented x3. Cranial nerves 2 through 12 are grossly intact. Diffusely weak Assessment & Plan: Acute: #Hematemesis potentially secondary to hiatal hernia: Patient's hemoglobin was on admission at 13.2, currently 11.6 with no active bleeding noted Continue GI prophylaxis with Protonix 40 mg IV twice daily Continue to monitor CBC General Surgery consulted, appreciate further recommendations Upper endoscopy scheduled for Monday with Dr. Brewer, on clear liquid diet till then and n.p.o. at midnight #Elevated troponins/rule out ACS: Troponins peaked at 0.044, last troponin was 0.036 so downtrending Patient has extensive cardiac history with most recent stent placement in 2019 Continue to monitor, cardiology following, repeat troponin ordered #Hyperkalemia: Potentially secondary to medication side effect such as losartan. Improved Potassium 5.5 on admission Patient receiving insulin from sliding scale which should slowly decrease potassium Continue to monitor BMP in the a.m. Chronic: #Type 2 diabetes: Started on insulin sliding scale and will adjust insulins accordingly Accu-Cheks #Hypertension: Continue home medications, Coreg being held per cardiology at this time #CAD #Hiatal hernia # Obesity with a BMI 39.0 F: NS 75 cc/h E: None N: Clear liquid diet, n.p.o. at midnight for EGD on 08/26/2024 DVT ppx: Lovenox 40 mg SQ daily GI ppx: Protonix 40 mg IV twice daily Dispo: Pending clinical course, await EGD report that is scheduled for 08/26/[address] Brewer. Cardiology has evaluated the patient and cleared her for EGD. Depending on what time the EGD today is in the results the patient potentially can be discharged today if not tomorrow. Objective - Vital Signs Vital signs: Vital Signs Temp 98.4 F 08/26/24 08:00 Pulse 80 08/26/24 08:00 Resp 18 08/26/24 08:00 BP 175/97 08/26/24 08:00 Pulse Ox 99 08/26/24 08:00 FiO2 Intake & Output 08/25/24 08/26/24 08/26/24 18:59 06:59 18:59 Intake Total 1080 10 Balance 1080 10 Weight 78.2 kg Intake: IV 10 0.9 10 Oral 1080 Other: Voiding Method Toilet Toilet Toilet # Voids 1 1 1 - Labs CBC & Chem 7: 08/26/24 05:58 08/26/24 05:58 Labs: Abnormal Lab Results - Last 24 Hours (Table) 08/25/24 08/25/24 08/25/24 Range/Units 11:41 16:35 20:16 RDW (11.5-15.5) % Lymphocytes # (1.0-4.8) k/uL Chloride (98-107) mmol/L POC Glucose (mg/dL) 149 H 133 H 156 H (70-110) mg/dL 08/26/24 08/26/24 Range/Units 05:58 05:58 RDW 15.6 H (11.5-15.5) % Lymphocytes # 0.9 L (1.0-4.8) k/uL Chloride 109 H (98-107) mmol/L POC Glucose (mg/dL) (70-110) mg/dL
[2024-08-26] MEDS ORDERED: PROPOFOL 10 MG/ML 20 ML VIAL IV ONE (13:41)
[2024-08-26] MEDS ORDERED: LIDOCAINE 1% INJ 10MG/ML (20 ML MDV) ONE (13:41)
--- NOTE | 2024-08-26 14:04 | P.PCN ---
Date of Procedure: 08/26/24 Procedure(s) Performed: Preoperative Dx: Upper GI bleed Postoperative Dx: Gastritis, hiatal hernia Procedure: EGD with Bx Anesthesia: Sedation Endoscopist: Dr. Brewer Specimens: Antrum Endoscopic Procedure: The patient was on the endoscopy table in the left decubitus position. The Olympus gastroscope was inserted into the oropharynx and passed under direct visualization to the region of the third portion of the duodenum. From that point the scope was slowly withdrawn inspecting all surfaces carefully. There were no neoplastic inflammatory or polypoid lesions throughout the duodenum. I was unable to visualize the duodenal diverticulum seen on recent CAT scan. The pylorus was widely patent. The stomach was carefully inspected. There was mild gastritis present. A biopsy of the antrum took place to rule out H. pylori. Retroflexion revealed a moderate-sized hiatal hernia. The GE junction was present sick centimeters above the diaphragmatic hiatus. I would estimate 25% or so of the stomach was above the diaphragm on today's exam. There was mild inflammatory changes within the herniated stomach. No ulcerations were noted. Despite the hiatal hernia and suspected chronic reflux there was no evidence of esophagitis. The remainder the esophagus appeared normal. The patient was then taken to the recovery room in stable condition per anesthesia guidelines. Recommendations: Resume diet. Continue antiacid therapy. Monitor for recurrent nausea and vomiting issues.
[2024-08-26 16:17] LABS: Glucose,Whole Blood 274 mg/dL (70-110)
--- NOTE | 2024-08-26 17:10 | P.DS ---
Providers Date of admission: 08/24/24 12:07 Attending physician: Olivia Monet Consults: 08/25/24 10:43 Consult Physician Urgent Consulting Provider: Harvinder Dumas Consult Reason/Comments: Possible second degree heart block Do you want consulting provider notified?: Yes 08/26/24 07:52 Consult Physician Routine Consulting Provider: Rishabh Brewer Consult Reason/Comments: GIB Do you want consulting provider notified?: Already Contacted Primary care physician: Cristhian Palmer Hospital Course: Discharge Diagnosis: Hematemesis potentially secondary to hiatal hernia Elevated troponin Hyperkalemia Type 2 diabetes Hypertension CAD Hiatal hernia Obesity with BMI 39.0 Hospital Course: History of present illness; 89-year-old female with a past medical history of type 2 diabetes, CAD (on Eliquis) with most recent stent placement in 2019, hiatal hernia, and hypertension presents with vomiting for the last 2 weeks. Per the patient's daughter the vomiting has been intermittent over the past couple weeks and over the past few days she can only consume fruit. Per the daughter the patient's vomit looks like coffee grounds in nature over the last 2 weeks as well. Patient's daughter believes this could be related to her hiatal hernia. Per the daughter the patient was sent by Dr. Palmer to the ED. Per the daughter the patient's last bowel movement yesterday was a normal color. Patient denies abdominal pain, chest pain, shortness of breath, fever, chills. Initial lab work from the ER was significant for WBC 6.9, hemoglobin 13.2, MCV 81.8, hematocrit 42.2, PT 10.2, INR 0.9, sodium 137, potassium 5.5, creatinine 0.94, glucose 156, troponin 0.039--> 0.044--> 0.036. EKG done in the ER showed heart rate of 77 bpm, no ST segment elevation or depression seen, no T-wave inversions seen. Sinus rhythm with first-degree AV block, anterior and inferior DC of intermediate age ER CT ABD: No bowel obstruction. No acute findings are evident. Asymmetric diminished function to the kidneys with poor functioning right kidney noted. Subjective: 08/24/2024: Patient seen at bedside. No significant overnight events. Patient has no current complaints denies any new vomiting. Admits to not having a bowel movement having some constipation. Upper endoscopy scheduled for Monday with Dr. Whittaker 08/25/2024 Patient is seen and evaluated in follow-up with no acute issues noted overnight. Patient continues to be extremely anxious about overall wellbeing and is scheduled for EGD on Monday with Dr. Brewer. Patient will be n.p.o. at midnight. Patient being evaluated by cardiology given history of TAVR. Patient was on Eliquis previously and had been running out so has not been taking as prescribed. No further reports of hematemesis or active bleeding noted and there was a drop in hemoglobin currently 10.7. Patient is afebrile with no reports of chest pain or shortness of breath. Will await EGD report. While admitted to the hospital patient's hemoglobin remained within normal l imits throughout her stay with the exception of 1 daily hemoglobin dropping to 10.7. Patient underwent EGD which showed GE junction present 60-minute centimeters above the diaphragmatic hiatus, estimated to be 25% the stomach above the diaphragm, mild phonatory changes within the herniated stomach, no ulcerations noted, no evidence of esophagitis, and biopsy of the antrum taken to rule out H. pylori. While admitted patient's carvedilol was held in the setting of several episodes of bradycardia with subsequent improvement in heart rate. Carvedilol will be resumed on discharge as patient's blood pressure needs to be under better control, but advised patient to follow-up with PCP and discussed different blood pressure medications. Patient was also seen by cardiology while admitted to recommend holding carvedilol and follow-up as an outpatient. After EGD was performed and no active bleeding was seen patient was medically hemodynamically stable for discharge. Patient is discharged to home. Patient is advised to follow-up with her PCP, typewriter repairer, and clinical esthetician. Pt seen and examined at bedside: Patient sitting up in bed and excited at the prospect of discharge. Vital signs reveiwed and stable: General: non toxic, no distress, appears at stated age, normal weight Derm: no unusual rashes/lesions, warm Head: atraumatic, normocephalic, symmetric Eyes: EOMI, no lid lag, anicteric sclera, pupils equal round reactive to light ENT: Nose and ears atraumatic Neck: No cervical lymphadenopathy, trachea midline, supple Mouth: no lip lesion, mucus membranes moist Cardiovascular: S1S2 reg, no murmur, positive dorsalis pedis pulse bilateral, no edema Lungs: Decreased air entry bilaterally, no rhonchi, no rales, no accessory muscle use Abdominal: soft, nontender to palpation, no guarding Ext: muscle strength 5 out of 5 in all 4 extremities grossly, no gross muscle atrophy, no contractures, Neuro: CN II-XI grossly intact, no gross focal neuro deficits Psych: Alert, oriented, appropriate affect A total of greater than 30 minutes were spent preparing this complex discarge summary. Patient was discharged on 08/26/2024, 16: 56. Plan - Discharge Summary Discharge Rx Participant: Yes New Discharge Prescriptions: No Action Losartan [Cozaar] 25 mg PO DAILY Dexlansoprazole [Dexilant] 60 mg PO DAILY Glimepiride [Amaryl] 1 mg PO AC-BRKFST Baclofen 5 mg PO DAILY PRN PRN Reason: Muscle Spasm Ketorolac 0.5% Ophth Soln [Acular 0.5%] 1 drop LEFT EYE TID traMADol HCl [Ultram] 50 mg PO Q6H PRN PRN Reason: Pain Amitriptyline HCl [Elavil] 10 mg PO HS Dapagliflozin Propanediol [Farxiga] 10 mg PO DAILY Latanoprost [Latanoprost 0.005%] 1 drop BOTH EYES HS carvediloL [Coreg] 6.25 mg PO BID Apixaban [Eliquis] 5 mg PO BID Discharge Medication List Dexlansoprazole [Dexilant] 60 mg PO DAILY 11/19/17 [History] Losartan [Cozaar] 25 mg PO DAILY 11/19/17 [History] Glimepiride [Amaryl] 1 mg PO AC-BRKFST 01/08/20 [History] Amitriptyline HCl [Elavil] 10 mg PO HS 08/23/24 [History] Apixaban [Eliquis] 5 mg PO BID 08/23/24 [History] Baclofen 5 mg PO DAILY PRN 08/23/24 [History] Dapagliflozin Propanediol [Farxiga] 10 mg PO DAILY 08/23/24 [History] Ketorolac 0.5% Ophth Soln [Acular 0.5%] 1 drop LEFT EYE TID 08/23/24 [History] Latanoprost [Latanoprost 0.005%] 1 drop BOTH EYES HS 08/23/24 [History] carvediloL [Coreg] 6.25 mg PO BID 08/23/24 [History] traMADol HCl [Ultram] 50 mg PO Q6H PRN 08/23/24 [History] Follow up Appointment(s)/Referral(s): Cristhian Palmer MD [Primary Care Provider] - 1-2 days
[2024-08-26 17:40] VITALS: BP 148/81; PULSE 86; TEMP 97.5
== END 2024-08-26 18:29 | disposition home or self-care (01) | DRG 391 ==
LOC: EC 17:04 → 3SCARD 23:09 → OBSVTOIN 08-24 12:07
PROVIDERS: ADMIT Hospitalist; ATTEND Hospitalist
PROC: 0DB68ZX Excision of Stomach, Via Natural or Artificial Opening Endoscopic, Diagnostic (ICD-10-PCS; principal; 2024-08-26 07:50)
DX: K44.9 Diaphragmatic hernia without obstruction or gangrene (principal); K29.71 Gastritis, unspecified, with bleeding; D64.9 Anemia, unspecified; E11.9 Type 2 diabetes mellitus without complications; R79.89 Other specified abnormal findings of blood chemistry; Z68.39 Body mass index [BMI] 39.0-39.9, adult; I25.10 Atherosclerotic heart disease of native coronary artery without angina pectoris; I10 Essential (primary) hypertension; E87.5 Hyperkalemia; E66.9 Obesity, unspecified; E78.5 Hyperlipidemia, unspecified; R00.1 Bradycardia, unspecified; I25.2 Old myocardial infarction; I44.1 Atrioventricular block, second degree; Z79.01 Long term (current) use of anticoagulants; Z79.02 Long term (current) use of antithrombotics/antiplatelets; Z79.84 Long term (current) use of oral hypoglycemic drugs; Z79.899 Other long term (current) drug therapy; Z86.73 Personal history of transient ischemic attack (TIA), and cerebral infarction without residual deficits; Z90.710 Acquired absence of both cervix and uterus; Z98.61 Coronary angioplasty status; Z95.2 Presence of prosthetic heart valve; Z88.5 Allergy status to narcotic agent; Z88.8 Allergy status to other drugs, medicaments and biological substances; Z88.1 Allergy status to other antibiotic agents; Z91.041 Radiographic dye allergy status; Z90.49 Acquired absence of other specified parts of digestive tract
CPT/HCPCS: 36415; 43239; 73502; 74177; 80048; 80053; 81001; 83605; 83735; 84484; 85025; 85027; 85610; 85730; 88305; 93005; 96365; 96366; 96375; 96376; 99285

== ENCOUNTER → 2024-09-18 | Outpatient (CLI) | payer MEDICARE, OTHER ==
[2024-09-18 15:43] LABS: Basophils # (A) 0.05 X 10*3/uL (0.00-0.10); Basophils % (A) 0.6 %; Eosinophils # (A) 0.18 X 10*3/uL (0.04-0.35); Eosinophils % (A) 2.2 %; HCT 46.3 % (37.2-46.3); HGB 13.5 g/dL (12.0-15.0); Lymphocytes # (A) 1.45 X 10*3/uL (0.90-5.00); Lymphocytes % (A) 17.9 %; MCH 24.9 pg (27.0-32.0); MCHC 29.2 g/dL (32.0-37.0); MCV 85.4 FL (80.0-97.0); Mean Platelet Volume 10.9 FL (9.5-12.2); Monocytes # (A) 0.61 X 10*3/uL (0.20-1.00); Monocytes % (A) 7.5 %; NRBC Per 100 WBC 0 X 10*3/uL (0.00-0.01); Neutrophils # (A) 5.79 X 10*3/uL (1.80-7.70); Neutrophils % (A) 71.6 %; Platelet Count 272 X 10*3/uL (140-440); RBC 5.42 X 10*6/uL (4.10-5.20); RDW 18.7 % (11.5-14.5)
[2024-09-18 15:56] LABS: ALT 13 U/L (8-44); AST 20 U/L (13-35); Albumin/Globulin Ratio 1.48 Ratio (1.60-3.17); Alkaline Phosphatase 119 U/L (41-126); Calcium 9.3 mg/dL (8.7-10.3); Chloride 104 mmol/L (96-109); Globulin 2.7 g/dL (1.6-3.3); Glucose 115 mg/dL (70-110); Potassium 4.7 mmol/L (3.5-5.5); Sodium 140 mmol/L (135-145); Total Bilirubin 0.3 mg/dL (0.3-1.2); Total Protein 6.7 g/dL (6.2-8.2)
== END | disposition home or self-care (01) ==
LOC: LABWHC1 07:43
PROVIDERS: ATTEND Family Medicine
DX: I10 Essential (primary) hypertension (principal)
CPT/HCPCS: 36415; 80053; 85025

== ENCOUNTER 2024-10-07 16:13 | Inpatient (IN) | payer MEDICARE, OTHER ==
[2024-10-07 16:47] LABS: Anisocytosis Slight; Basophils % (A) 0 %; Eosinophils # (A) 0.2 k/uL (0-0.7); Eosinophils % (A) 3 %; HCT 44.2 % (34.0-46.0); Hypochromasia Slight; Lymphocytes # (A) 1.2 k/uL (1.0-4.8); Lymphocytes % (A) 15 %; MCH 26.5 pg (25.0-35.0); MCHC 31.7 g/dL (31.0-37.0); MCV 83.4 fL (80.0-100.0); Mean Platelet Volume 7.9; Monocytes # (A) 0.4 k/uL (0-1.0); Monocytes % (A) 6 %; Neutrophils # (A) 5.8 k/uL (1.3-7.7); Neutrophils % (A) 75 %; Platelet Count 275 k/uL (150-450); WBC 7.8 k/uL (3.8-10.6)
[2024-10-07 17:01] LABS: ALT 15 U/L (4-34); AST 23 U/L (14-36); African American GFR (CKD) 67 (>60 ml/min/1.73 sqM); Albumin 3.8 g/dL (3.5-5.0); Alkaline Phosphatase 117 U/L (38-126); Anion Gap 5 mmol/L; Blood Urea Nitrogen 14 mg/dL (7-17); Calcium 8.9 mg/dL (8.4-10.2); Carbon Dioxide 25 mmol/L (22-30); Chloride 106 mmol/L (98-107); Glucose 163 mg/dL (74-99); Magnesium 1.8 mg/dL (1.6-2.3); Non-African American GFR(CKD) 58 (>60 ml/min/1.73 sqM); Potassium 4.6 mmol/L (3.5-5.1); Sodium 136 mmol/L (137-145); Total Bilirubin 0.5 mg/dL (0.2-1.3); Total Protein 6.9 g/dL (6.3-8.2)
[2024-10-07] MEDS: ASPIRIN 81 MG PO STA (17:13)
--- NOTE | 2024-10-07 17:13 | ED ---
General Adult HPI - General Chief complaint: Chest Pain Stated complaint: Chest Pain,Sob Time Seen by Provider: 10/07/24 16:39 Source: patient Mode of arrival: ambulatory Limitations: no limitations - History of Present Illness Initial comments: Dictation was produced using [employer] dictation software. please excuse any grammatical, word or spelling errors. Chief Complaint: 89-year-old female presents to the emergency department for chest pain History of Present Illness: Patient 89-year-old female presents with chest pain states that she has extensive history of coronary artery disease and coronary artery stents. Her lead supply worker is Dr. Chavira. Patient states that her pain is usually left to right however its right to left. States that it is like a sharp stabbing pain. Associated with nausea no diaphoresis reminds her of previous heart attack she has had. Daughter at bedside who helps in providing history of present illness. The ROS documented in this emergency department record has been reviewed and confirmed by me. Those systems with pertinent positive or negative responses have been documented in the HPI. All other systems are other negative and/or noncontributory. - Related Data Home Medications Medication Instructions Recorded Confirmed Dexlansoprazole [Dexilant] 60 mg PO DAILY 11/19/17 10/07/24 Losartan [Cozaar] 25 mg PO DAILY 11/19/17 10/07/24 Glimepiride [Amaryl] 1 mg PO AC-BRKFST 01/08/20 10/07/24 Amitriptyline HCl [Elavil] 10 mg PO HS 08/23/24 10/07/24 Apixaban [Eliquis] 5 mg PO BID 08/23/24 10/07/24 Baclofen 5 mg PO BID 08/23/24 10/07/24 Dapagliflozin Propanediol [Farxiga] 10 mg PO DAILY 08/23/24 10/07/24 Ketorolac 0.5% Ophth Soln [Acular 1 drop LEFT EYE TID 08/23/24 10/07/24 0.5%] Latanoprost [Latanoprost 0.005%] 1 drop BOTH EYES HS 08/23/24 10/07/24 traMADol HCl [Ultram] 50 mg PO Q6H PRN 08/23/24 10/07/24 Allergies Allergy/AdvReac Type Severity Reaction Status Date / Time butorphanol [From Stadol] Allergy Unknown - Verified 10/07/24 17:31 per PCP ciprofloxacin [From Cipro] Allergy Unknown - Verified 10/07/24 17:31 per PCP codeine Allergy Unknown Verified 10/07/24 17:31 iodine Allergy Unknown - Verified 10/07/24 17:31 per PCP meperidine [From Demerol] Allergy Unknown - Verified 10/07/24 17:31 per PCP morphine Allergy Anaphylaxis Verified 10/07/24 17:31 nitrofurantoin Allergy Unknown - Verified 10/07/24 17:31 [From Macrodantin] per PCP Review of Systems ROS Statement: Those systems with pertinent positive or pertinent negative responses have been documented in the HPI. ROS Other: All systems not noted in ROS Statement are negative. Past Medical History Past Medical History: Diabetes Mellitus, Myocardial Infarction (HI) Additional Past Medical History / Comment(s): hiatal hernia Last Myocardial Infarction Date:: 01/08/2020 History of Any Multi-Drug Resistant Organisms: None Reported Past Surgical History: Appendectomy, Back Surgery, Cholecystectomy, Heart Catheterization With Stent, Hernia Repair, Hysterectomy Additional Past Surgical History / Comment(s): stents x4 Past Anesthesia/Blood Transfusion Reactions: No Reported Reaction Date of Last Stent Placement:: 01/08/2020 Past Psychological History: No Psychological Hx Reported Smoking Status: Never smoker Past Alcohol Use History: None Reported Past Drug Use History: None Reported General Exam - General Exam Comments Initial Comments: PHYSICAL EXAM: General Impression: Alert and oriented x3, not in acute distress HEENT: Normocephalic atraumatic, extra-ocular movements intact, pupils equal and reactive to light bilaterally, mucous membranes moist. 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 Significant artifact making interpretation difficult. No obvious P waves before each QRS., QRS 84, QTc 388. No MI prolongation, no QTC prolongation, no ST or T-wave changes noted. EKG compared to August 22, 2024 showing no significant changes. playground monitor reviewed at the bedside showing obvious P wave before each QRS Medical Decision Making - Medical Decision Making Was pt. sent in by a medical professional or institution (, PA, MOLD STACKER, urgent care, hospital, or long-term...) When possible be specific @ -No Did you speak to anyone other than the patient for history (EMS, parent, family, police, friend...)? What history was obtained from this source @ -No Did you review nursing and triage notes (agree or disagree)? Why? @ -I reviewed and agree with nursing and triage notes Were old charts reviewed (outside hosp., previous admission, EMS record, old EKG, old radiological studies, urgent care reports/EKG's, long-term records)? Report findings @ -No old charts were reviewed Differential Diagnosis (chest pain, altered mental status, abdominal pain women, abdominal pain men, vaginal bleeding, musculoskeletal, weakness, fever, dyspnea, syncope, headache, dizziness, GI bleed, back pain, seizure, CVA, palpatations, mental health)? @ -Differential Chest Pain: Stable Angina, Unstable Angina, STEMI, NSTEMI Aortic Dissection, Pneumothorax, Musculoskeletal, Esophageal Spasm GERD, Cholecystitis, Pancreatitis, Zoster, this is not meant to be an all-inclusive list. EKG interpreted by me (3pts min.). @ -See above X-rays interpreted by me (1pt min.). @ -Chest x-ray shows mild pulmonary edema CT interpreted by me (1pt min.). @ -None done U/S interpreted by me (1pt. min.). @ -None done What testing was considered but not performed or refused? (CT, X-rays, U/S, labs)? Why? @ -None What meds were considered but not given or refused? Why? @ -None Was smoking cessation discussed for >3mins.? @ -No Were there social determinants of health that impacted care today? How? (Homelessness, low income, unemployed, alcoholism, drug addiction, transportation, low edu. Level, literacy, decrease access to med. care, long-term, rehab)? @ -No Was there de-escalation of care discussed even if they declined (Discuss DNR or withdrawal of care, Hospice)? DNR status @ -No What co-morbidities impacted this encounter? (DM, HTN, Smoking, COPD, CAD, Cancer, CVA, ARF, Chemo, Hep., AIDS, mental health diagnosis, sleep apnea, morbid obesity)? @ -Coronary artery disease Was patient admitted / discharged? Hospital course, mention meds given and route, prescriptions, significant lab abnormalities, going to OR and other pertinent info. @ -89-year-old female presents with chest pain concerning for unstable angina. Vital signs upon arrival are within acceptable limits. EKG shows no ischemia infarction. Laboratory evaluation obtained. Troponin elevated 0.156. She does have a history of elevated troponin though typically not this elevated. Chest x-ray shows mild pulmonary edema. Patient reevaluated bedside at 9:25 PM found to be in stable mental condition. Patient started on heparin will be admitted with consultation to cardiology. Case discussed with hospitalist for admission Did you discuss the management of the patient with other professionals (professionals i.e. , PA, MOLD STACKER, lab, RT, psych nurse, social worker psychiatric, bi developer, teacher, agricultural technical officer, telephonic case manager)? Give summary @ -See above Was critical care preformed (if so, how long)? @ -No Undiagnosed new problem with uncertain prognosis? @ -No Drug Therapy requiring intensive monitoring for toxicity (Heparin, Nitro, Insulin, Cardizem)? @ -No Were any procedures done? @ -No Diagnosis/symptom? Acute, or Chronic, or Acute on Chronic? Uncomplicated (without systemic symptoms) or Complicated (systemic symptoms)? @ -Chest pain Side effects of treatment? @ -No Exacerbation, Progression, or Severe Exacerbation? @ -No Poses a threat to life or bodily function? How? (Chest pain, [place], HI, pneumonia, PE, COPD, DKA, ARF, appy, cholecystitis, CVA, Diverticulitis, Homicidal, Suicidal, threat to staff... and all critical care pts) @ -yes - Lab Data Result diagrams: 10/07/24 16:39 10/07/24 16:39 Lab Results 10/07/24 10/07/24 10/07/24 Range/Units 16:39 16:39 16:39 WBC 7.8 (3.8-10.6) k/uL RBC 5.30 (3.80-5.40) m/uL Hgb 14.0 (11.4-16.0) gm/dL Hct 44.2 (34.0-46.0) % MCV 83.4 (80.0-100.0) fL MCH 26.5 (25.0-35.0) pg MCHC 31.7 (31.0-37.0) g/dL RDW 17.0 H (11.5-15.5) % Plt Count 275 (150-450) k/uL MPV 7.9 Neutrophils % 75 % Lymphocytes % 15 % Monocytes % 6 % Eosinophils % 3 % Basophils % 0 % Neutrophils # 5.8 (1.3-7.7) k/uL Lymphocytes # 1.2 (1.0-4.8) k/uL Monocytes # 0.4 (0-1.0) k/uL Eosinophils # 0.2 (0-0.7) k/uL Basophils # 0.0 (0-0.2) k/uL Hypochromasia Slight Anisocytosis Slight PT (10.0-12.5) sec INR (<1.2) APTT (22.0-30.0) sec Sodium 136 L (137-145) mmol/L Potassium 4.6 (3.5-5.1) mmol/L Chloride 106 (98-107) mmol/L Carbon Dioxide 25 (22-30) mmol/L Anion Gap 5 mmol/L BUN 14 (7-17) mg/dL Creatinine 0.89 (0.52-1.04) mg/dL Est GFR (CKD-EPI)AfAm 67 (>60 ml/min/1.73 sqM) Est GFR (CKD-EPI)NonAf 58 (>60 ml/min/1.73 sqM) Glucose 163 H (74-99) mg/dL Calcium 8.9 (8.4-10.2) mg/dL Magnesium 1.8 (1.6-2.3) mg/dL Total Bilirubin 0.5 (0.2-1.3) mg/dL AST 23 (14-36) U/L ALT 15 (4-34) U/L Alkaline Phosphatase 117 (38-126) U/L Troponin I 0.156 H* (0.000-0.034) ng/mL Total Protein 6.9 (6.3-8.2) g/dL Albumin 3.8 (3.5-5.0) g/dL 10/07/24 Range/Units 18:15 WBC (3.8-10.6) k/uL RBC (3.80-5.40) m/uL Hgb (11.4-16.0) gm/dL Hct (34.0-46.0) % MCV (80.0-100.0) fL MCH (25.0-35.0) pg MCHC (31.0-37.0) g/dL RDW (11.5-15.5) % Plt Count (150-450) k/uL MPV Neutrophils % % Lymphocytes % % Monocytes % % Eosinophils % % Basophils % % Neutrophils # (1.3-7.7) k/uL Lymphocytes # (1.0-4.8) k/uL Monocytes # (0-1.0) k/uL Eosinophils # (0-0.7) k/uL Basophils # (0-0.2) k/uL Hypochromasia Anisocytosis PT 10.2 (10.0-12.5) sec INR 0.9 (<1.2) APTT 22.8 (22.0-30.0) sec Sodium (137-145) mmol/L Potassium (3.5-5.1) mmol/L Chloride (98-107) mmol/L Carbon Dioxide (22-30) mmol/L Anion Gap mmol/L BUN (7-17) mg/dL Creatinine (0.52-1.04) mg/dL Est GFR (CKD-EPI)AfAm (>60 ml/min/1.73 sqM) Est GFR (CKD-EPI)NonAf (>60 ml/min/1.73 sqM) Glucose (74-99) mg/dL Calcium (8.4-10.2) mg/dL Magnesium (1.6-2.3) mg/dL Total Bilirubin (0.2-1.3) mg/dL AST (14-36) U/L ALT (4-34) U/L Alkaline Phosphatase (38-126) U/L Troponin I (0.000-0.034) ng/mL Total Protein (6.3-8.2) g/dL Albumin (3.5-5.0) g/dL Disposition Clinical Impression: Chest pain Disposition: ADMITTED IP TO THIS [facility] Condition: Serious Referrals: Cristhian Palmer MD [Primary Care Provider] - 1-2 days Decision Time: 20:00
--- NOTE | 2024-10-07 18:08 | XR ---
EXAMINATION TYPE: XR chest 2V DATE OF EXAM: 10/07/2024 5:36 PM COMPARISON: Chest radiographs from 01/10/2020 CLINICAL INDICATION: Female, 89 years old with history of Chest Pain; [facility] TECHNIQUE: XR chest 2V Frontal and lateral views of the chest. FINDINGS: Lungs/Pleura: There is no evidence of pleural effusion, focal consolidation, or pneumothorax. Pulmonary vascularity: Pulmonary vascular congestion. Heart/mediastinum: Cardiomediastinal silhouette is prominent in size. Musculoskeletal: No acute osseous pathology. IMPRESSION: Pulmonary edema correlate with serum [facility] Wily Moncada, , 10/07/2024 6:06 PM
[2024-10-07] MEDS: HEPARIN SOD,PORK IN 0.45% NACL 25,000 UNIT in 0.45% NACL 1 250ML.BAG IV SCH (18:15)
[2024-10-07] MEDS: HEPARIN SODIUM 1,000 UN/ML (10ML VL) IV ONE (18:18)
[2024-10-07 18:47] LABS: INR 0.9 (<1.2); Partial Thromboplastin Time 22.8 sec (22.0-30.0); Prothrombin Time 10.2 sec (10.0-12.5)
[2024-10-07] MEDS: NITROGLYCERIN SL TABS 0.4 MG TAB SUBLINGUAL PRN (21:47)
[2024-10-07] MEDS: MAG HYDROX/AL HYDROX/SIMETH 30 ML, HYOSCYAMINE ELIXIR 10 ML, LIDOCAINE VISCOUS 2% 10 ML PO STA (21:48)
[2024-10-08] MEDS: ACETAMINOPHEN TAB 325 MG TAB PO PRN (00:38)
[2024-10-08] MEDS: MAG HYDROX/AL HYDROX/SIMETH 30 ML CUP PO PRN (03:26)
[2024-10-08 06:12] LABS: Glucose,Whole Blood 126 mg/dL (70-110)
[2024-10-08] MEDS ORDERED: DEXTROSE 50% SYRINGE 50 ML IVP PRN ×2 (06:55)
[2024-10-08] MEDS: INSULIN ASPART (NovoLOG) 100 UNIT/ML VIAL SQ SCH (07:00)
[2024-10-08] MEDS: PANTOPRAZOLE 40 MG TABLET PO SCH (07:05)
[2024-10-08] MEDS: KETOROLAC 0.5% OPHTH DROPS 5 ML BTL LEFT EYE SCH (08:20)
[2024-10-08] MEDS: ASPIRIN 325 MG TAB PO SCH (08:20)
[2024-10-08] MEDS: BACLOFEN 10 MG TAB PO SCH (08:20)
[2024-10-08] MEDS: DAPAGLIFLOZIN PROPANEDIOL 10 MG TABLET PO SCH (08:20)
[2024-10-08] MEDS: LOSARTAN 25 MG TAB PO SCH (08:20)
[2024-10-08 08:33] LABS: Chol/HDL Ratio 4.25 Ratio; LDL Cholesterol,Calculated 133.1 mg/dL (0.0-131.0)
--- NOTE | 2024-10-08 08:48 | P.CRDCN ---
History of Present Illness Consult date: 10/08/24 Reason for Consult (text): NSTEMI History of present illness: This is an 89-year-old female patient of Dr. Chavira with past medical history of coronary artery disease status post percutaneous coronary angioplasty, status post TAVR, hypertension, hyperlipidemia, chronic shortness of breath, near syncope. We have been asked to evaluate the patient for NSTEMI. Patient presented to the hospital with complaints of chest pain that started 2 to 3 days ago that was sharp in nature and shooting around her chest. She states it was very severe and is still present at this time. She also complains of burning with urination that is also significant and she has been on outpatient antibiotics for this. Patient is also complaining of a glaucoma headache. She states she feels exhausted and she has not been sleeping for the last 2 night due to multiple pain complaints. Patient was noted to have elevated troponins and was started on a heparin drip. Blood pressure 176/82, heart rate 84, pulse ox 90% on 2 L nasal cannula. Patient had a recent hospitalization in August which time she presented with bradycardia and second-degree AV block and Coreg was discontinued. She was also seen by Dr. Jackman for GI bleed and EGD found gastritis and hiatal hernia. Discussed case with Dr. Chavira and due to patient's age, recent bleeding, multiple comorbidities and acute conditions, recommendations are for medical management. -EKG: Sinus rhythm with PVCs PACs and nonspecific ST changes -Chest x-ray: Pulmonary edema correlate with serum BNP. -Laboratory studies: Hemoglobin 14. Sodium 136, potassium 4.6, BUN 14 creatinine 0.89. Troponins 0.156, 0.19, 0.186. -Home cardiac medications: Eliquis 5 mg twice daily, Farxiga 10 mg daily, losartan 25 mg daily. -Echocardiogram performed in the office on 06/05/2024 revealed normal LV size and EF 35 to 40%. [place] is akinetic. Medium size akinetic areas of the anterior, anterior lateral and anterior septal [place] at the the mid wall. Grade 2 diastolic dysfunction. Moderate left ventricular hypertrophy. Severely dilated left atrium. Transcatheter AV prosthesis. Mild mitral stenosis, mild tricuspid regurgitation, PASP 29 mmHg. -Lexiscan Cardiolite stress test performed in the office on 02/22/2021 was nondiagnostic electrocardiographic stress testing. Abnormal myocardial perfusion imaging with prior myocardial infarction involving the apex as well as the distal anterior and inferior wall with minimal ab-infarct ischemia and evidence of segmental wall motion abnormality consistent with prior AR in the [place]. Review Of Systems: At the time of my exam: CONSTITUTIONAL: Denies fever or chills. HEENT: Denies blurred vision, vision changes, or eye pain. Denies hemoptysis. Reports headache. CARDIOVASCULAR: Reports Chest pain. Denies orthopnea. Denies PND. Denies palpitations RESPIRATORY: Denies shortness of breath. GASTROINTESTINAL: Denies abdominal pain. Denies nausea or vomiting. HEMATOLOGIC: Denies bleeding disorders. GENITOURINARY: Denies any blood in urine. Reports dysuria. SKIN: Denies puritis. Denies rash. Physical examination: Gen: This is an 89-year-old female in no acute distress VS: reviewed HEENT: Head is atraumatic, normocephalic. Pupils equal, round. Sclerae is anicteric. NECK: Supple. No JVD. LUNGS: Clear to auscultation. No wheezes or rhonchi. No intercostal retractions. HEART: Regular rate and rhythm. 2/6 systolic ejection murmur. ABDOMEN: Soft No tenderness. EXTREMITIES: No pedal edema. No calf tenderness. NEUROLOGICAL: Patient is awake, alert and oriented x3. Assessment: NSTEMI, medical management Urinary tract infection Headache Coronary artery disease with previous PCI TAVR Hypertension Hyperlipidemia Plan: Resume patient's home cardiac medications Continue patient on heparin drip Obtain 2-D echocardiogram and Doppler study to assess cardiac structure and function Further recommendations to follow based upon clinical course Thank you kindly for this consultation. Nurse practitioner note has been reviewed, I agree with documented findings and plan of care. Patient was seen and examined. Past Medical History Past Medical History: Asthma, Coronary Artery Disease (CAD), COPD, Diabetes Mellitus, Eye Disorder, Hypertension, Myocardial Infarction (AR) Additional Past Medical History / Comment(s): hiatal hernia, 2L [place] home O2, glacoma Last Myocardial Infarction Date:: 01/08/2020 History of Any Multi-Drug Resistant Organisms: None Reported Past Surgical History: Appendectomy, Back Surgery, Cholecystectomy, Heart Catheterization With Stent, Hernia Repair, Hysterectomy Additional Past Surgical History / Comment(s): stents x8 Past Anesthesia/Blood Transfusion Reactions: No Reported Reaction Date of Last Stent Placement:: 01/08/2020 Past Psychological History: No Psychological Hx Reported Smoking Status: Never smoker Past Alcohol Use History: None Reported Past Drug Use History: None Reported - Past Family History Father Family Medical History: Asthma Additional Family Medical History / Comment(s): at 68 Mother Family Medical History: Congestive Heart Failure (CHF), Renal Disease Additional Family Medical History / Comment(s): at 89 Medications and Allergies Home Medications Medication Instructions Recorded Confirmed Type Dexlansoprazole [Dexilant] 60 mg PO DAILY 11/19/17 10/07/24 History Losartan [Cozaar] 25 mg PO DAILY 11/19/17 10/07/24 History Glimepiride [Amaryl] 1 mg PO AC-BRKFST 01/08/20 10/07/24 History Amitriptyline HCl [Elavil] 10 mg PO HS 08/23/24 10/07/24 History Apixaban [Eliquis] 5 mg PO BID 08/23/24 10/07/24 History Baclofen 5 mg PO BID 08/23/24 10/07/24 History Dapagliflozin Propanediol [Farxiga] 10 mg PO DAILY 08/23/24 10/07/24 History Ketorolac 0.5% Ophth Soln [Acular 1 drop LEFT EYE TID 08/23/24 10/07/24 History 0.5%] Latanoprost [Latanoprost 0.005%] 1 drop BOTH EYES HS 08/23/24 10/07/24 History traMADol HCl [Ultram] 50 mg PO Q6H PRN 08/23/24 10/07/24 History Allergies Allergy/AdvReac Type Severity Reaction Status Date / Time butorphanol [From Stadol] Allergy Unknown - Verified 10/07/24 17:31 per PCP ciprofloxacin [From Cipro] Allergy Unknown - Verified 10/07/24 17:31 per PCP codeine Allergy Unknown Verified 10/07/24 17:31 iodine Allergy Unknown - Verified 10/07/24 17:31 per PCP meperidine [From Demerol] Allergy Unknown - Verified 10/07/24 17:31 per PCP morphine Allergy Anaphylaxis Verified 10/07/24 17:31 nitrofurantoin Allergy Unknown - Verified 10/07/24 17:31 [From Macrodantin] per PCP Physical Exam Vitals: Vital Signs Temp Pulse Pulse Resp BP BP Pulse Ox 10/08/24 03:34 97.8 F 84 20 176/82 98 10/08/24 00:12 97.8 F 77 20 137/67 99 10/07/24 23:18 98.0 F 87 18 151/78 100 10/07/24 21:52 109 H 18 136/69 95 10/07/24 21:47 84 18 133/77 99 10/07/24 21:25 85 20 98 10/07/24 19:30 98.8 F 86 16 137/65 97 10/07/24 17:05 87 10/07/24 16:15 106 H 18 127/90 95 Intake and Output 10/07/24 10/08/24 10/08/24 22:59 06:59 14:59 Output Total 250 Balance -250 Output: Urine 250 Other: Voiding Method External Catheter # Voids 2 Weight 77.111 kg 76.5 kg Results 10/07/24 16:39 10/07/24 16:39 Cardiac Enzymes 10/07/24 10/07/24 10/07/24 Range/Units 16:39 16:39 21:37 AST 23 (14-36) U/L Troponin I 0.156 H* 0.190 H* (0.000-0.034) ng/mL 10/08/24 Range/Units 00:29 AST (14-36) U/L Troponin I 0.186 H* (0.000-0.034) ng/mL Coagulation 10/07/24 10/08/24 Range/Units 18:15 00:29 PT 10.2 (10.0-12.5) sec APTT 22.8 47.6 H (22.0-30.0) sec CBC 10/07/24 Range/Units 16:39 WBC 7.8 (3.8-10.6) k/uL RBC 5.30 (3.80-5.40) m/uL Hgb 14.0 (11.4-16.0) gm/dL Hct 44.2 (34.0-46.0) % Plt Count 275 (150-450) k/uL Comprehensive Metabolic Panel 10/07/24 Range/Units 16:39 Sodium 136 L (137-145) mmol/L Potassium 4.6 (3.5-5.1) mmol/L Chloride 106 (98-107) mmol/L Carbon Dioxide 25 (22-30) mmol/L BUN 14 (7-17) mg/dL Creatinine 0.89 (0.52-1.04) mg/dL Glucose 163 H (74-99) mg/dL Calcium 8.9 (8.4-10.2) mg/dL AST 23 (14-36) U/L ALT 15 (4-34) U/L Alkaline Phosphatase 117 (38-126) U/L Total Protein 6.9 (6.3-8.2) g/dL Albumin 3.8 (3.5-5.0) g/dL Current Medications Generic Name Dose Route Start Last Admin Trade Name Freq PRN Reason Stop Dose Admin Acetaminophen 650 mg 10/08/24 00:26 10/08/24 06:17 Acetaminophen Tab 325 Mg Tab PO 650 mg Q6HR PRN Administration Fever and/ or Pain Al Hydroxide/Mg Hydroxide 30 ml 10/08/24 00:31 10/08/24 03:26 Mag Hydrox/Al Hydrox/Simeth 30 Ml Cup PO 30 ml Q4HR PRN Administration GI Upset Amitriptyline HCl 10 mg 10/08/24 21:00 Amitriptyline Hcl 10 Mg Tab PO HS NIKI Aspirin 325 mg 10/08/24 09:00 Aspirin 325 Mg Tab PO DAILY NIKI Baclofen 5 mg 10/08/24 09:00 Baclofen 10 Mg Tab PO BID INKI Dapagliflozin 10 mg 10/08/24 09:00 Dapagliflozin Propanediol 10 Mg Tablet PO DAILY [facility] Dextrose/Water 25 ml 10/08/24 06:55 Dextrose 50% Syringe 50 Ml IVP PER PROTOCOL PRN Hypoglycemia Protocol Dextrose/Water 50 ml 10/08/24 06:55 Dextrose 50% Syringe 50 Ml IVP PER PROTOCOL PRN Hypoglycemia Protocol Heparin Sodium (Porcine) 0 unit 10/07/24 17:33 Heparin Sodium 1,000 Un/Ml (10ml Vl) IV PER PROTOCOL PRN Low PTT Protocol Heparin Sodium/Sodium Chloride 250 mls @ 9.253 mls/hr 10/07/24 17:45 10/07/24 18:15 25,000 unit/ Sodium Chloride IV 12 units/kg/hr .Q24H NIKI 9.253 mls/hr Administration Protocol 12 UNITS/KG/HR Insulin Aspart 0 unit 10/08/24 07:30 10/08/24 07:00 Insulin Aspart (Novolog) 100 Unit/Ml Vial SQ Not Given ACHS [facility] Protocol Ketorolac Tromethamine 1 drops 10/08/24 09:00 Ketorolac 0.5% Ophth Drops 5 Ml Btl LEFT EYE TID NIKI Latanoprost 1 drops 10/08/24 21:00 Latanoprost 0.005% Ophth Drops 2.5 Ml Btl BOTH EYES HS NIKI Losartan Potassium 25 mg 10/08/24 09:00 Losartan 25 Mg Tab PO DAILY [facility] Nitroglycerin 0.4 mg 10/07/24 21:23 10/07/24 21:47 Nitroglycerin Sl Tabs 0.4 Mg Tab SUBLINGUAL 0.4 mg Q5M PRN Administration Chest Pain Pantoprazole Sodium 40 mg 10/08/24 07:30 10/08/24 07:05 Pantoprazole 40 Mg Tablet PO 40 mg AC-BRKFST NIKI Administration Tramadol HCl 50 mg 10/08/24 06:53 Tramadol 50 Mg Tab PO Q6H PRN Pain Intake and Output 10/07/24 10/08/24 10/08/24 22:59 06:59 14:59 Output Total 250 Balance -250 Output: Urine 250 Other: Voiding Method External Catheter # Voids 2 Weight 77.111 kg 76.5 kg 10/07/24 16:39 10/07/24 16:39
[2024-10-08 08:52] LABS: Appearance,Urine Cloudy (Clear); Bacteria,Urine Occasional /hpf; Bilirubin,Urine Negative (Negative); Blood,Urine Negative (Negative); Color,Urine Colorless; Glucose,Urine (UA) Trace (Negative); Ketones,Urine Negative (Negative); Leukocyte Esterase,Urine Small (Negative); Mucus,Urine Rare /hpf; Nitrite,Urine Negative (Negative); Protein,Urine Negative (Negative); RBC,Urine 2 /hpf (0-5); Specific Gravity,Urine 1.005 (1.001-1.035); Squamous Epithelial Cell,Urine 21 /hpf (0-4); Urobilinogen,Urine <2.0 mg/dL (<2.0); WBC,Urine 16 /hpf (0-5)
[2024-10-08] MEDS ORDERED: DEXLANSOPRAZOLE 60 MG PO SCH (09:00)
[2024-10-08 11:51] LABS: Glucose,Whole Blood 116 mg/dL (70-110)
[2024-10-08 16:45] LABS: Glucose,Whole Blood 128 mg/dL (70-110)
[2024-10-08 19:58] LABS: Glucose,Whole Blood 162 mg/dL (70-110)
[2024-10-08] MEDS: LATANOPROST 0.005% OPHTH DROPS 2.5 ML BTL BOTH EYES SCH (21:45)
[2024-10-08] MEDS: AMITRIPTYLINE HCL 10 MG TAB PO SCH (23:08)
--- NOTE | 2024-10-08 23:39 | P.HPIM ---
History of Present Illness H&P Date: 10/08/24 Chief Complaint: Chest pain Patient is a 89-year-old female with known history of coronary disease with stent placement, history of TAVR, atrial fibrillation on anticoagulation, hypertension, diabetes type 2 normal some dependent, history of LA, COPD on home oxygen 2 L by nasal cannula and other multiple medical problems presents to ER with complaints of chest pain. Patient states that she started having chest pain mainly below the left breast which is sharp and went around her chest. Patient was trying to get up from bed at the time. Patient states that she she was exhausted and could not sleep last 2 days. To pain. She was also complaining of burning with urination and is on antibiotics for UTI., Patient has been afebrile on admission. Chest x-ray showed pulmonary edema correlate with serum BNP. EKG showed atrial fibrillation with aberrant conduction or ventricular premature complexes. Laboratory data showed WBC 7.8 hemoglobin 14.0 and platelets 275 Sodium 136 potassium 4.6 chloride 106 bicarb is 25 BUN 14 and creatinine 0.89 and blood sugar 163. Troponin 0.156, 0.190 and 0.186 LDL 133 Review of Systems Constitutional: Patient denies any fever or chills . No generalized weakness or weight loss. Abdomen: Patient denied nausea vomiting and diarrhea and abdominal pain. Cardiovascular: Patient complains of chest pain and shortness of breath. No palpitations. No leg swelling. Respiratory: patient denied any cough or sputum production. Positive for shortness of breath Neurologic: Patient denied any numbness or tingling. no headache. Musculoskeletal: Patient denies any complaints of joint swelling or deformity. Skin: Negative Psychiatric: Negative Endocrine: No heat or cold intolerance. No recent weight gain. Genitourinary: Complains of dysuria. No hematuria. All other 14 point ROS negative except the above Past Medical History Past Medical History: Asthma, Coronary Artery Disease (CAD), COPD, Diabetes Mellitus, Eye Disorder, Hypertension, Myocardial Infarction (LA) Additional Past Medical History / Comment(s): hiatal hernia, 2L [place] home O2, glacoma Last Myocardial Infarction Date:: 01/08/2020 History of Any Multi-Drug Resistant Organisms: None Reported Past Surgical History: Appendectomy, Back Surgery, Cholecystectomy, Heart Catheterization With Stent, Hernia Repair, Hysterectomy Additional Past Surgical History / Comment(s): stents x8 Past Anesthesia/Blood Transfusion Reactions: No Reported Reaction Date of Last Stent Placement:: 01/08/2020 Past Psychological History: No Psychological Hx Reported Smoking Status: Never smoker Past Alcohol Use History: None Reported Past Drug Use History: None Reported - Past Family History Father Family Medical History: Asthma Additional Family Medical History / Comment(s): at 68 Mother Family Medical History: Congestive Heart Failure (CHF), Renal Disease Additional Family Medical History / Comment(s): at 89 Medications and Allergies Home Medications Medication Instructions Recorded Confirmed Type Dexlansoprazole [Dexilant] 60 mg PO DAILY 11/19/17 10/07/24 History Losartan [Cozaar] 25 mg PO DAILY 11/19/17 10/07/24 History Glimepiride [Amaryl] 1 mg PO [id number] 01/08/20 10/07/24 History Amitriptyline HCl [Elavil] 10 mg PO HS 08/23/24 10/07/24 History Apixaban [Eliquis] 5 mg PO BID 08/23/24 10/07/24 History Baclofen 5 mg PO BID 08/23/24 10/07/24 History Dapagliflozin Propanediol [Farxiga] 10 mg PO DAILY 08/23/24 10/07/24 History Ketorolac 0.5% Ophth Soln [Acular 1 drop LEFT EYE TID 08/23/24 10/07/24 History 0.5%] Latanoprost [Latanoprost 0.005%] 1 drop BOTH EYES HS 08/23/24 10/07/24 History traMADol HCl [Ultram] 50 mg PO Q6H PRN 08/23/24 10/07/24 History Allergies Allergy/AdvReac Type Severity Reaction Status Date / Time butorphanol [From Stadol] Allergy Unknown - Verified 10/07/24 17:31 per PCP ciprofloxacin [From Cipro] Allergy Unknown - Verified 10/07/24 17:31 per PCP codeine Allergy Unknown Verified 10/07/24 17:31 iodine Allergy Unknown - Verified 10/07/24 17:31 per PCP meperidine [From Demerol] Allergy Unknown - Verified 10/07/24 17:31 per PCP morphine Allergy Anaphylaxis Verified 10/07/24 17:31 nitrofurantoin Allergy Unknown - Verified 10/07/24 17:31 [From Macrodantin] per PCP Physical Exam Vitals: Vital Signs Temp Pulse Pulse Resp BP BP Pulse Ox 10/08/24 08:19 97.6 F 51 L 168/89 98 10/08/24 03:34 97.8 F 84 20 176/82 98 10/08/24 00:12 97.8 F 77 20 137/67 99 10/07/24 23:18 98.0 F 87 18 151/78 100 10/07/24 21:52 109 H 18 136/69 95 10/07/24 21:47 84 18 133/77 99 10/07/24 21:25 85 20 98 10/07/24 19:30 98.8 F 86 16 137/65 97 10/07/24 17:05 87 10/07/24 16:15 106 H 18 127/90 95 Intake and Output 10/07/24 10/08/24 10/08/24 22:59 06:59 14:59 Intake Total 0 Output Total 250 300 Balance -250 -300 Intake: Oral 0 Output: Urine 250 300 Other: Voiding Method External Catheter Toilet External Catheter # Voids 2 0 Weight 77.111 kg 76.5 kg PHYSICAL EXAMINATION: Patient is lying in the bed comfortably, no acute distress, awake alert and oriented.. HEENT: Normocephalic. Neck is supple. Pupils reactive. Nostrils clear. Oral cavity is moist. Neck reveals no JVD, carotid bruits, or thyromegaly. CHEST EXAMINATION: Trachea is central. Symmetrical expansion. Bibasilar coarse sounds. Lung hobbs clear to auscultation and percussion. CARDIAC: Normal S1, S2 with no gallops. Irregular rhythm. ABDOMEN: Soft. Bowel sounds normal. No organomegaly. No abdominal bruits. Extremities: reveal no edema. No clubbing or cyanosis Neurologically awake, alert, oriented x3 with well-coordinated movements. No gross focal deficits noted Skin: No rash or skin lesions. Psychiatric: Coperative. Nonsuicidal could not be assessed completely Musculoskeletal: No joint swelling or deformity. Results CBC & Chem 7: 10/09/24 01:35 10/09/24 01:35 Labs: Abnormal Lab Results - Last 24 Hours (Table) 10/07/24 10/07/24 10/07/24 Range/Units 16:39 16:39 16:39 RDW 17.0 H (11.5-15.5) % APTT (22.0-30.0) sec Sodium 136 L (137-145) mmol/L Glucose 163 H (74-99) mg/dL POC Glucose (mg/dL) (70-110) mg/dL Troponin I 0.156 H* (0.000-0.034) ng/mL Cholesterol (0.00-200.00) mg/dL LDL Cholesterol, Calc (0.0-131.0) mg/dL Urine Appearance (Clear) Urine Glucose (UA) (Negative) Ur Leukocyte Esterase (Negative) Urine WBC (0-5) /hpf Ur Squamous Epith Cells (0-4) /hpf Urine Bacteria (None) /hpf Urine Mucus (None) /hpf 10/07/24 10/08/24 10/08/24 Range/Units 21:37 00:29 00:29 RDW (11.5-15.5) % APTT 47.6 H (22.0-30.0) sec Sodium (137-145) mmol/L Glucose (74-99) mg/dL POC Glucose (mg/dL) (70-110) mg/dL Troponin I 0.190 H* 0.186 H* (0.000-0.034) ng/mL Cholesterol (0.00-200.00) mg/dL LDL Cholesterol, Calc (0.0-131.0) mg/dL Urine Appearance (Clear) Urine Glucose (UA) (Negative) Ur Leukocyte Esterase (Negative) Urine WBC (0-5) /hpf Ur Squamous Epith Cells (0-4) /hpf Urine Bacteria (None) /hpf Urine Mucus (None) /hpf 10/08/24 10/08/24 10/08/24 Range/Units 00:40 06:11 08:35 RDW (11.5-15.5) % APTT (22.0-30.0) sec Sodium (137-145) mmol/L Glucose (74-99) mg/dL POC Glucose (mg/dL) 126 H (70-110) mg/dL Troponin I (0.000-0.034) ng/mL Cholesterol 202.00 H (0.00-200.00) mg/dL LDL Cholesterol, Calc 133.1 H (0.0-131.0) mg/dL Urine Appearance Cloudy H (Clear) Urine Glucose (UA) Trace H (Negative) Ur Leukocyte Esterase Small H (Negative) Urine WBC 16 H (0-5) /hpf Ur Squamous Epith Cells 21 H (0-4) /hpf Urine Bacteria Occasional H (None) /hpf Urine Mucus Rare H (None) /hpf Thrombosis Risk Factor Assmnt - DVT/VTE Prophylaxis DVT/VTE Prophylaxis: Pharmacologic Prophylaxis ordered - Choose All That Apply Any of the Below Risk Factors Present?: Yes Each Factor Represents 1 point: Obesity (BMI >25) Other Risk Factors: Yes Each Risk Factor Represents 3 Points: Age 75 years or older Thrombosis Risk Factor Assessment Total Risk Factor Score: 4 Thrombosis Risk Factor Assessment Level: Moderate Risk Assessment and Plan Assessment: Acute non-ST elevated LA with elevated troponin level. Acute on chronic CHF with mildly reduced EF. Chest pain Coronary artery disease with history of stent placement Atrial fibrillation on anticoagulation with Eliquis History of TAVR Recent UTI and is on antibiotic regimen as an outpatient currently. Hypertension Diabetes type 2 [id number] Asthma/COPD on home oxygen 2 L by nasal cannula Glaucoma GI prophylaxis with PPI Plan: Patient will be continued on telemonitoring. Started on heparin drip due to elevated troponin level. Trending down now. Continue with aspirin and statin send losartan. Cardiology is on board. 2D echocardiogram is ordered. Medical management was recommended. Patient will be continued on ceftriaxone for urinary tract infection. Follow-up repeat chest x-ray. proBNP was ordered. continue insulin sliding scale for better blood sugar control. Continue GI prophylaxis. Follow-up closely. Time with Patient: Greater than 30
[2024-10-09 01:44] LABS: Anisocytosis Slight; Basophils % (A) 0 %; Eosinophils # (A) 0.3 k/uL (0-0.7); Eosinophils % (A) 5 %; HCT 45.5 % (34.0-46.0); HGB 14.3 gm/dL (11.4-16.0); Hypochromasia Moderate; Lymphocytes # (A) 1.1 k/uL (1.0-4.8); Lymphocytes % (A) 18 %; MCH 26.8 pg (25.0-35.0); MCHC 31.4 g/dL (31.0-37.0); MCV 85.3 fL (80.0-100.0); Mean Platelet Volume 7.7; Monocytes # (A) 0.3 k/uL (0-1.0); Monocytes % (A) 5 %; Neutrophils # (A) 4.4 k/uL (1.3-7.7); Neutrophils % (A) 71 %; Platelet Count 255 k/uL (150-450); RBC 5.33 m/uL (3.80-5.40); RDW 16.6 % (11.5-15.5); WBC 6.2 k/uL (3.8-10.6)
[2024-10-09 01:57] LABS: African American GFR (CKD) 59 (>60 ml/min/1.73 sqM); Anion Gap 5 mmol/L; Blood Urea Nitrogen 15 mg/dL (7-17); Calcium 8.8 mg/dL (8.4-10.2); Carbon Dioxide 27 mmol/L (22-30); Chloride 107 mmol/L (98-107); Glucose 108 mg/dL (74-99); Non-African American GFR(CKD) 51 (>60 ml/min/1.73 sqM); Potassium 4.3 mmol/L (3.5-5.1); Sodium 139 mmol/L (137-145)
[2024-10-09 02:07] LABS: NT-Pro-B-Type Natriuretic Pept 4320 pg/mL
[2024-10-09] MEDS: HEPARIN SODIUM 1,000 UN/ML (10ML VL) IV PRN (03:28)
[2024-10-09 06:04] LABS: Glucose,Whole Blood 97 mg/dL (70-110)
--- NOTE | 2024-10-09 08:14 | XR ---
EXAMINATION TYPE: XR chest 1V DATE OF EXAM: 10/09/2024 6:58 AM COMPARISON: Chest radiographs from 10/07/2024 CLINICAL INDICATION: Female, 89 years old with history of CHF; TECHNIQUE: XR chest 1V Frontal view of the chest. FINDINGS: Lungs/Pleura: There is flattening of the diaphragm with increased lucency of the lungs. No evidence o f pneumothorax, pleural effusion or focal consolidation. Pulmonary vascularity: Pulmonary vascular congestion. Heart/mediastinum: Cardiomediastinal silhouette is unremarkable. Post aortic valve repair changes. Musculoskeletal: Degenerative changes of the shoulder joints. IMPRESSION: Mild pulmonary edema. COPD. [facility], , 10/09/2024 8:11 AM
[2024-10-09] MEDS: ISOSORBIDE MONONITRATE ER 30 MG TAB.ER.24H PO SCH (09:43)
[2024-10-09] MEDS: RANOLAZINE 500 MG TAB.ER.12H PO SCH (09:43)
[2024-10-09 11:16] LABS: Glucose,Whole Blood 253 mg/dL (70-110)
[2024-10-09] MEDS: FUROSEMIDE 10 MG/ML 2 ML VIAL IV ONE (11:19)
--- NOTE | 2024-10-09 14:10 | P.PN ---
Subjective Progress Note Date: 10/09/24 Reason for Consult (text): NSTEMI History of present illness: This is an 89-year-old female patient of Dr. Chavira with past medical history of coronary artery disease status post percutaneous coronary angioplasty, status post TAVR, hypertension, hyperlipidemia, chronic shortness of breath, near syncope. We have been asked to evaluate the patient for NSTEMI. Patient presented to the hospital with complaints of chest pain that started 2 to 3 days ago that was sharp in nature and shooting around her chest. She states it was very severe and is still present at this time. She also complains of burning with urination that is also significant and she has been on outpatient antibiotics for this. Patient is also complaining of a glaucoma headache. She states she feels exhausted and she has not been sleeping for the last 2 night due to multiple pain complaints. Patient was noted to have elevated troponins and was started on a heparin drip. Blood pressure 176/82, heart rate 84, pulse ox 90% on 2 L nasal cannula. Patient had a recent hospitalization in August which time she presented with bradycardia and second-degree AV block and Coreg w as discontinued. She was also seen by Dr. Jackman for GI bleed and EGD found gastritis and hiatal hernia. Discussed case with Dr. Chavira and due to patient's age, recent bleeding, multiple comorbidities and acute conditions, recommendations are for medical management. -EKG: Sinus rhythm with PVCs PACs and nonspecific ST changes -Chest x-ray: Pulmonary edema correlate with serum BNP. -Laboratory studies: Hemoglobin 14. Sodium 136, potassium 4.6, BUN 14 creatinine 0.89. Troponins 0.156, 0.19, 0.186. -Home cardiac medications: Eliquis 5 mg twice daily, Farxiga 10 mg daily, losartan 25 mg daily. -Echocardiogram performed in the office on 06/05/2024 revealed normal LV size and EF 35 to 40%. [place] is akinetic. Medium size akinetic areas of the anterior, anterior lateral and anterior septal blandon at the the mid wall. Grade 2 diastolic dysfunction. Moderate left ventricular hypertrophy. Severely dilated left atrium. Transcatheter AV prosthesis. Mild mitral stenosis, mild tricuspid regurgitation, PASP 29 mmHg. -Lexiscan Cardiolite stress test performed in the office on 02/22/2021 was no ndiagnostic electrocardiographic stress testing. Abnormal myocardial perfusion imaging with prior myocardial infarction involving the apex as well as the distal anterior and inferior wall with minimal ab-infarct ischemia and evidence of segmental wall motion abnormality consistent with prior NM in the LAD territory. Patient seen and examined. Patient states that she is feeling better today. No chest pain no shortness of breath. She has been maintained on heparin drip which will complete 48 hours this evening. Blood pressure 100/63, heart rate 107, pulse ox 95% on 2 L nasal cannula. Repeat lab work reveals sodium 139, potassium 4.3, BUN 15 creatinine 0.98. proBNP 4320. Triglycerides 107, cholesterol 202, LDL 133. Physical examination: Gen: This is an 89-year-old female in no acute distress VS: reviewed HEENT: Head is atraumatic, normocephalic. Pupils equal, round. Sclerae is anicteric. NECK: Supple. No JVD. LUNGS: Clear to auscultation. No wheezes or rhonchi. No intercostal retractions. HEART: Regular rate and rhythm. 2/6 systolic ejection murmur. ABDOMEN: Soft No tenderness. EXTREMITIES: No pedal edema. No calf tenderness. NEUROLOGICAL: Patient is awake, alert and oriented x3. Assessment: NSTEMI, medical management Urinary tract infection Headache Coronary artery disease with previous PCI TAVR Hypertension Hyperlipidemia Plan: Continue patient's home cardiac medications Start patient on Imdur 30 mg daily and Ranexa 500 mg every 12 hours Discontinue heparin drip tonight at 48 hours Obtain 2-D echocardiogram and Doppler study to assess cardiac structure and function If patient is asymptomatic tomorrow, she will be cleared for discharge home Further recommendations to follow based upon clinical course Nurse practitioner note has been reviewed, I agree with documented findings and plan of care. Patient was seen and examined. Objective - Vital Signs Vital signs: Vital Signs Temp 98.6 F 10/09/24 08:18 Pulse 99 10/09/24 08:18 Resp 15 10/09/24 08:18 BP 148/83 10/09/24 08:18 Pulse Ox 98 10/09/24 08:18 FiO2 Intake & Output 10/08/24 10/09/24 10/09/24 18:59 06:59 18:59 Intake Total 320.992 206.207 Output Total 300 Balance 20.992 206.207 Weight 73.8 kg Intake: Intake, IV Titration 220.992 86.207 Amount Heparin Sod,Pork in 0.45% 220.992 86.207 NaCl 25,000 unit In 0.45 % NaCl 1 250ml.bag @ 12 UNITS/KG/HR 9.253 mls/hr IV .Q24H [facility] Rx#: [id number] Oral 100 120 Output: Urine 300 Other: Voiding Method Toilet Toilet Toilet Diaper Diaper Diaper # Voids 2 2 # Bowel Movements 1 - Labs CBC & Chem 7: 10/09/24 01:35 10/09/24 01:35 Labs: Abnormal Lab Results - Last 24 Hours (Table) 10/07/24 10/08/24 10/08/24 Range/Units 16:39 11:50 16:43 RDW (11.5-15.5) % Glucose (74-99) mg/dL POC Glucose (mg/dL) 116 H 128 H (70-110) mg/dL Hemoglobin A1c 7.1 H (<=6.0) % 10/08/24 10/09/24 10/09/24 Range/Units 19:55 01:35 01:35 RDW 16.6 H (11.5-15.5) % Glucose 108 H (74-99) mg/dL POC Glucose (mg/dL) 162 H (70-110) mg/dL Hemoglobin A1c (<=6.0) %
[2024-10-09 16:16] LABS: Glucose,Whole Blood 240 mg/dL (70-110)
[2024-10-09 20:05] LABS: Glucose,Whole Blood 135 mg/dL (70-110)
[2024-10-10 06:18] LABS: Glucose,Whole Blood 103 mg/dL (70-110)
[2024-10-10] MEDS: traMADol 50 MG TAB PO PRN (09:42)
[2024-10-10 11:20] LABS: Glucose,Whole Blood 127 mg/dL (70-110)
[2024-10-10] MEDS: METOPROLOL TARTRATE 12.5 MG TAB PO SCH (12:12)
--- NOTE | 2024-10-10 13:40 | P.PN ---
Subjective Progress Note Date: 10/10/24 Reason for Consult (text): NSTEMI History of present illness: This is an 89-year-old female patient of Dr. Chavira with past medical history of coronary artery disease status post percutaneous coronary angioplasty, status post TAVR, hypertension, hyperlipidemia, chronic shortness of breath, near syncope. We have been asked to evaluate the patient for NSTEMI. Patient presented to the hospital with complaints of chest pain that started 2 to 3 days ago that was sharp in nature and shooting around her chest. She states it was very severe and is still present at this time. She also complains of burning with urination that is also significant and she has been on outpatient antibiotics for this. Patient is also complaining of a glaucoma headache. She states she feels exhausted and she has not been sleeping for the last 2 night due to multiple pain complaints. Patient was noted to have elevated troponins and was started on a heparin drip. Blood pressure 176/82, heart rate 84, pulse ox 90% on 2 L nasal cannula. Patient had a recent hospitalization in August which time she presented with bradycardia and second-degree AV block and Coreg w as discontinued. She was also seen by Dr. Jackman for GI bleed and EGD found gastritis and hiatal hernia. Discussed case with Dr. Chavira and due to patient's age, recent bleeding, multiple comorbidities and acute conditions, recommendations are for medical management. -EKG: Sinus rhythm with PVCs PACs and nonspecific ST changes -Chest x-ray: Pulmonary edema correlate with serum BNP. -Laboratory studies: Hemoglobin 14. Sodium 136, potassium 4.6, BUN 14 creatinine 0.89. Troponins 0.156, 0.19, 0.186. -Home cardiac medications: Eliquis 5 mg twice daily, Farxiga 10 mg daily, losartan 25 mg daily. -Echocardiogram performed in the office on 06/05/2024 revealed normal LV size and EF 35 to 40%. [place] is akinetic. Medium size akinetic areas of the anterior, anterior lateral and anterior septal blandon at the the mid wall. Grade 2 diastolic dysfunction. Moderate left ventricular hypertrophy. Severely dilated left atrium. Transcatheter AV prosthesis. Mild mitral stenosis, mild tricuspid regurgitation, PASP 29 mmHg. -Lexiscan Cardiolite stress test performed in the office on 02/22/2021 was no ndiagnostic electrocardiographic stress testing. Abnormal myocardial perfusion imaging with prior myocardial infarction involving the apex as well as the distal anterior and inferior wall with minimal ab-infarct ischemia and evidence of segmental wall motion abnormality consistent with prior [place] in the [place] territory. Patient seen and examined. Patient states that she is feeling better today. No chest pain no shortness of breath. She has been maintained on heparin drip which will complete 48 hours this evening. Blood pressure 100/63, heart rate 107, pulse ox 95% on 2 L nasal cannula. Repeat lab work reveals sodium 139, potassium 4.3, BUN 15 creatinine 0.98. proBNP 4320. Triglycerides 107, cholesterol 202, LDL 133. 10/10/24 Patient seen and examined. She denies having any chest pain. Yesterday, patient was started on Imdur and Ranexa. Heparin drip was discontinued last evening. Echocardiogram reviewed at the bedside by Dr. Gerard. Blood pressure 116/59, heart rate 87, pulse ox 98% on room air.. Physical examination: Gen: This is an 89-year-old female in no acute distress VS: reviewed HEENT: Head is atraumatic, normocephalic. Pupils equal, round. Sclerae is ani cteric. NECK: Supple. No JVD. LUNGS: Clear to auscultation. No wheezes or rhonchi. No intercostal retractions. HEART: Regular rate and rhythm. 2/6 systolic ejection murmur. ABDOMEN: Soft No tenderness. EXTREMITIES: No pedal edema. No calf tenderness. NEUROLOGICAL: Patient is awake, alert and oriented x3. Assessment: NSTEMI, medical management Urinary tract infection Headache Coronary artery disease with previous PCI TAVR Hypertension Hyperlipidemia Plan: Continue patient's home cardiac medications: Aspirin 81 mg daily, Farxiga 10 mg daily, losartan 25 mg daily Decrease Lopressor to 12.5 mg twice daily Continue patient on Imdur 30 mg daily and Ranexa 500 mg every 12 hours Patient is cleared for discharge from cardiology and will follow-up in the office with Dr. Chavira in 1 to 2 weeks. Nurse practitioner note has been reviewed, I agree with documented findings and plan of care. Patient was seen and examined. Objective - Vital Signs Vital signs: Vital Signs Temp 98.0 F 10/10/24 08:10 Pulse 106 H 10/10/24 08:10 Resp 17 10/10/24 08:10 BP 127/74 10/10/24 08:10 Pulse Ox 97 10/10/24 08:10 FiO2 Intake & Output 10/09/24 10/10/24 10/10/24 18:59 06:59 18:59 Intake Total 523.793 Output Total 950 Balance -426.207 Weight 75.5 kg Intake: Intake, IV Titration 163.793 Amount Heparin Sod,Pork in 0.45% 163.793 NaCl 25,000 unit In 0.45 % NaCl 1 250ml.bag @ 12 UNITS/KG/HR 9.253 mls/hr IV .Q24H [facility] Rx#: [id number] Oral 360 Output: Urine 950 Other: Voiding Method Toilet Toilet Diaper Diaper # Voids 1 1 # Bowel Movements 1 - Labs CBC & Chem 7: 10/09/24 01:35 10/09/24 01:35 Labs: Abnormal Lab Results - Last 24 Hours (Table) 10/09/24 10/09/24 10/09/24 Range/Units 09:04 11:15 16:15 APTT 58.5 H (22.0-30.0) sec POC Glucose (mg/dL) 253 H 240 H (70-110) mg/dL 10/09/24 Range/Units 20:03 APTT (22.0-30.0) sec POC Glucose (mg/dL) 135 H (70-110) mg/dL
--- NOTE | 2024-10-10 14:09 | CA ---
Transthoracic Echo Report Name: Jasmin Chavarria Age: 89 Gender: F : 1935 Exam Date: 10/10/2024 08:55 Exam Location: [facility] Ht (in): 58 Wt (lb): 162 Ordering Physician: Nelida Denny Attending/Referring Phys: [id number], Eduin [employer] Machine Operator Jennifer Alvarado RDCS Procedure CPT: Indications: LVF Cardiac Hx: 8 stents, stroke Technical Quality: Fair Contrast 1: Total Dose (mL): Contrast 2: Total Dose (mL): MEASUREMENTS (Male / Female) Normal Values 2D ECHO LV Diastolic Diameter PLAX 4.6 cm 4.2 - 5.9 / 3.9 - 5.3 cm LV Systolic Diameter PLAX 3.8 cm IVS Diastolic Thickness 1.5 cm 0.6 - 1.0 / 0.6 - 0.9 cm LVPW Diastolic Thickness 1.4 cm 0.6 - 1.0 / 0.6 - 0.9 cm LV Relative Wall Thickness 0.6 RV Internal Dim ED PLAX 3.4 cm LVOT Diameter 2.0 cm LA Systolic Diameter LX 4.2 cm 3.0 - 4.0 / 2.7 - 3.8 cm LV Diastolic Volume MOD BP 92.6 cm??? 67 - 155 / 56 - 104 cm??? LV Systolic Volume MOD BP 67.6 cm??? 22 - 58 / 19 - 49 cm??? LV Ejection Fraction MOD BP 27.0 % >= 55 % LV Cardiac Index MOD BP 1369.2 cm???/min???m??? LV Diastolic Volume MOD 4C 95.0 cm??? LV Systolic Volume MOD 4C 60.6 cm??? LV Ejection Fraction MOD 4C 36.2 % LV Cardiac Index MOD 4C 1885.1 cm???/min???m??? LV Diastolic Length 4C 7.7 cm LV Systolic Length 4C 7.5 cm LV Diastolic Volume MOD 2C 70.1 cm??? LV Systolic Volume MOD 2C 49.3 cm??? LV Ejection Fraction MOD 2C 29.6 % LV Cardiac Index MOD 2C 1138.3 cm???/min???m??? LV Diastolic Length 2C 6.9 cm LV Systolic Length 2C 6.6 cm LA Volume 81.9 cm??? 18 - 58 / 22 - 52 cm??? LA Volume Index 46.2 cm???/m??? 16 - 28 cm???/m??? DOPPLER AV Peak Velocity 256.2 cm/s AV Peak Gradient 26.2 mmHg AV Mean Velocity 155.2 cm/s AV Mean Gradient 11.7 mmHg AV Velocity Time Integral 47.3 cm MV Peak Velocity 142.8 cm/s MV Peak Gradient 8.2 mmHg MV Mean Velocity 91.0 cm/s MV Mean Gradient 3.8 mmHg MV Velocity Time Integral 42.8 cm MV Area PHT 2.3 cm??? Mitral E Point Velocity 133.8 cm/s Mitral A Point Velocity 113.9 cm/s Mitral E to A Ratio 1.2 MV Deceleration Time 326.5 ms TR Peak Velocity 334.0 cm/s TR Peak Gradient 44.6 mmHg Right Ventricular Systolic Press 47.6 mmHg FINDINGS Left Ventricle Left ventricular ejection fraction is estimated at 30-35 %. Left ventricular cavity size normal. Moderate concentric left ventricular hypertrophy. Moderately increased septal wall thickness. Moderately increased posterior wall thickness. Moderately increased left ventricular systolic volume. Severely decreased left ventricular ejection fraction. Apical septum akinesis, Apical inferior hypokinesis Right Ventricle Mild right ventricular dilatation. Moderate pulmonary hypertension. Right ventricular systolic pressure estimated at 48 mm hg. Right Atrium Normal right atrial size. No right atrial thrombus or mass seen. Left Atrium Mildly increased left atrial diameter. Severely increased left atrial volume. Mildly increased left atrial area. No left atrial thrombus or mass present. Mitral Valve Mitral valve thickened. Mild mitral annular calcification. Mild mitral regurgitation. Aortic Valve Normally functioning bioprosthetic aortic valve without stenosis with a peak velocity of 2.6m/s, peak gradient 26 mmHg, mean gradient 12 mmHg. Tricuspid Valve Structurally normal tricuspid valve. Gktl-ei-jcpubpdo tricuspid regurgitation. Pulmonic Valve Pulmonic valve not well visualized. Pericardium No pericardial or pleural effusion. Aorta Normal size aortic root and proximal ascending aorta. CONCLUSIONS Left ventricular ejection fraction 30-35% with predominantly apical hypokinesis RVSP 47 Mild to moderately dilated left atrium Mild mitral regurgitation Poorly visualized bioprosthetic aortic valve with mean gradient 12 mmHg. Cannot exclude echodensity of the bioprosthetic annulus. Consider DEEDEE if clinically indicated RVSP 47 Ezed-mc-accnwack tricuspid regurgitation Previewed by: Dr. Juanjo Buenrostro DO (Electronically Signed) Final Date: 10 October 2024 14:08
--- NOTE | 2024-10-10 14:45 | P.PN ---
Subjective Progress Note Date: 10/09/24 Patient is a 89-year-old female with known history of coronary disease with stent placement, history of TAVR, atrial fibrillation on anticoagulation, hypertension, diabetes type 2 normal some dependent, history of [place], COPD on home oxygen 2 L by nasal cannula and other multiple medical problems presents to ER with complaints of chest pain. Patient states that she started having chest pain mainly below the left breast which is sharp and went around her chest. Patient was trying to get up from bed at the time. Patient states that she she was exhausted and could not sleep last 2 days. To pain. She was also complaining of burning with urination and is on antibiotics for UTI., Patient has been afebrile on admission. Chest x-ray showed pulmonary edema correlate with serum BNP. EKG showed atrial fibrillation with aberrant conduction or ventricular premature complexes. Laboratory data showed WBC 7.8 hemoglobin 14.0 and platelets 275 Sodium 136 potassium 4.6 chloride 106 bicarb is 25 BUN 14 and creatinine 0.89 and blood sugar 163. Troponin 0.156, 0.190 and 0.186 LDL 133 10/09/2024 Patient is sitting in the chair. Awake alert and oriented. Feels better today. No complaints of chest pain or shortness of breath. No complaints of dysuria. Heparin drip to be continued for 48 hours as per cardiology. Laboratory data showed WBC 6.2 hemoglobin 14.3 and platelets 255 sodium 139 potassium 4.3 chloride 107 bicarb is 27 BUN 15 and creatinine 0.9 and blood sugar 108 and proBNP 4820. Current medications reviewed. Objective - Vital Signs Vital signs: Vital Signs Temp 99 F 10/09/24 15:57 Pulse 99 10/09/24 15:57 Resp 15 10/09/24 15:57 BP 93/55 10/09/24 15:57 Pulse Ox 95 10/09/24 15:57 FiO2 Intake & Output 10/09/24 10/09/24 10/10/24 06:59 18:59 06:59 Intake Total 206.207 523.793 Output Total 950 Balance 206.207 -426.207 Weight 73.8 kg Intake: Intake, IV Titration 86.207 163.793 Amount Heparin Sod,Pork in 0.45% 86.207 163.793 NaCl 25,000 unit In 0.45 % NaCl 1 250ml.bag @ 12 UNITS/KG/HR 9.253 mls/hr IV .Q24H [facility] Rx#: [id number] Oral 120 360 Output: Urine 950 Other: Voiding Method Toilet Toilet Diaper Diaper # Voids 2 1 # Bowel Movements 1 - Exam PHYSICAL EXAMINATION: Patient is lying in the bed comfortably, no acute distress, awake alert and oriented.. HEENT: Normocephalic. Neck is supple. Pupils reactive. Nostrils clear. Oral cavity is moist. Neck reveals no JVD, carotid bruits, or thyromegaly. CHEST EXAMINATION: Trachea is central. Symmetrical expansion. Lung hobbs clear to auscultation and percussion. CARDIAC: Normal S1, S2 with no gallops. No murmurs ABDOMEN: Soft. Bowel sounds normal. No organomegaly. No abdominal bruits. Extremities: reveal no edema. No clubbing or cyanosis Neurologically awake, alert, oriented x 2-3. Able to move all extremities. No gross focal deficits noted Skin: No rash or skin lesions. Psychiatric: Coperative. Nonsuicidal Musculoskeletal: No joint swelling or deformity. Normal range of motion. - Labs CBC & Chem 7: 10/09/24 01:35 10/09/24 01:35 Labs: Abnormal Lab Results - Last 24 Hours (Table) 10/07/24 10/08/24 10/09/24 Range/Units 16:39 19:55 01:35 RDW 16.6 H (11.5-15.5) % APTT (22.0-30.0) sec Glucose (74-99) mg/dL POC Glucose (mg/dL) 162 H (70-110) mg/dL Hemoglobin A1c 7.1 H (<=6.0) % 10/09/24 10/09/24 10/09/24 Range/Units 01:35 09:04 11:15 RDW (11.5-15.5) % APTT 58.5 H (22.0-30.0) sec Glucose 108 H (74-99) mg/dL POC Glucose (mg/dL) 253 H (70-110) mg/dL Hemoglobin A1c (<=6.0) % 10/09/24 Range/Units 16:15 RDW (11.5-15.5) % APTT (22.0-30.0) sec Glucose (74-99) mg/dL POC Glucose (mg/dL) 240 H (70-110) mg/dL Hemoglobin A1c (<=6.0) % Assessment and Plan Assessment: Acute non-ST elevated IL with elevated troponin level. Acute on chronic CHF with mildly reduced EF. Chest pain Coronary artery disease with history of stent placement Atrial fibrillation on anticoagulation with Eliquis History of TAVR Recent UTI and is on antibiotic regimen as an outpatient currently. Hypertension Diabetes type 2 [id number]-iyrfkjkjj Asthma/COPD on home oxygen 2 L by nasal cannula Glaucoma GI prophylaxis with PPI Plan: Patient will be continued on telemonitoring. Continue with heparin drip for 48 hours.. Trending down now. Continue with aspirin and statin, Farxiga and losartan. Imdur and Ranexa was added.. Cardiology is on board. 2D echocardiogram is ordered. Medical management was recommended. Patient will be continued on ceftriaxone for urinary tract infection. Follow-up repeat chest x-ray.Chest x-ray showed mild pulmonary edema. COPD. Continue insulin sliding scale for better blood sugar control. Continue GI prop hylaxis. Follow-up closely. Time with Patient: Greater than 30
--- NOTE | 2024-10-10 15:12 | P.DS ---
Providers Date of admission: 10/07/24 21:23 Expected date of discharge: 10/10/24 Attending physician: Olivia Monet Consults: 10/07/24 21:23 Consult Physician Urgent Consulting Provider: Juanjo Buenrostro Consult Reason/Comments: chest pain Do you want consulting provider notified?: Yes Primary care physician: Cristhian Palmer Hospital Course: Discharge diagnosis Acute non-ST elevated CT with elevated troponin level. Acute on chronic CHF with mildly reduced EF. Chest pain secondary to above Coronary artery disease with history of stent placement Atrial fibrillation on anticoagulation with Eliquis History of TAVR Recent UTI and is on antibiotic regimen as an outpatient currently. Hypertension Diabetes type 2 [id number] Asthma/COPD on home oxygen 2 L by nasal cannula Glaucoma GI prophylaxis with PPI Hospital course Patient is a 89-year-old female with known history of coronary disease with stent placement, history of TAVR, atrial fibrillation on anticoagulation, hypertension, diabetes type 2 normal some dependent, history of CT, COPD on home oxygen 2 L by nasal cannula and other multiple medical problems presents to ER with complaints of chest pain. Patient states that she started having chest pain mainly below the left breast which is sharp and went around her chest. Patient was trying to get up from bed at the time. Patient states that she she was exhausted and could not sleep last 2 days. To pain. She was also complaining of burning with urination and is on antibiotics for UTI., Patient has been afebrile on admission. Chest x-ray showed pulmonary edema correlate with serum BNP. EKG showed atrial fibrillation with aberrant conduction or ventricular premature complexes. Laboratory data showed WBC 7.8 hemoglobin 14.0 and platelets 275 Sodium 136 potassium 4.6 chloride 106 bicarb is 25 BUN 14 and creatinine 0.89 and blood sugar 163. Troponin 0.156, 0.190 and 0.186 LDL 133 10/09/2024 Patient is sitting in the chair. Awake alert and oriented. Feels better today. No complaints of chest pain or shortness of breath. No complaints of dysuria. Heparin drip to be continued for 48 hours as per cardiology. Laboratory data showed WBC 6.2 hemoglobin 14.3 and platelets 255 sodium 139 potassium 4.3 chloride 107 bicarb is 27 BUN 15 and creatinine 0.9 and blood sugar 108 and proBNP 4820. 10/10/2024 Patient is sitting in the chair. Awake alert [place] x 3. No complaints of chest pain or shortness with. Patient was complaining of some chest discomfort this morning. Improved with Maalox. No cough or sputum production. Patient has been afebrile. No other acute overnight issues. No complaints of dysuria or hematuria. No complaints of abdominal pain. 2D echocardiogram showed EF 30 to 35% with predominantly apical hypokinesis RVSP 47 mild to moderate dilated left atrium mild MR. Cannot exclude echodensity of the bioprosthetic annulus. Patient will be continued on Imdur and Ranexa. Cleared from cardiology standpoint. Patient is being discharged to [facility] today. Patient completed antibiotics for UTI for 3 days. PHYSICAL EXAMINATION: Patient is lying in the bed comfortably, no acute distress, awake alert and oriented.. HEENT: Normocephalic. Neck is supple. Pupils reactive. Nostrils clear. Oral cavity is moist. Neck reveals no JVD, carotid bruits, or thyromegaly. CHEST EXAMINATION: Trachea is central. Symmetrical expansion. Lung hobbs clear to auscultation and percussion. CARDIAC: Normal S1, S2 with no gallops. No murmurs ABDOMEN: Soft. Bowel sounds normal. No organomegaly. No abdominal bruits. Extremities: reveal no edema. No clubbing or cyanosis Neurologically awake, alert, oriented x 2-3. Able to move all extremities. No gross focal deficits noted Skin: No rash or skin lesions. Psychiatric: Coperative. Nonsuicidal Musculoskeletal: No joint swelling or deformity. Normal range of motion. 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 Patient Condition at Discharge: Fair Plan - Discharge Summary Discharge Rx Participant: No New Discharge Prescriptions: New Isosorbide Mononitrate ER [Imdur] 30 mg PO DAILY #30 tab Metoprolol Tartrate [Lopressor] 12.5 mg PO BID #60 tab Aspirin 81 mg PO DAILY #30 tab Ranolazine [Ranexa] 500 mg PO Q12HR #60 tab Continue Losartan [Cozaar] 25 mg PO DAILY Dexlansoprazole [Dexilant] 60 mg PO DAILY Glimepiride [Amaryl] 1 mg PO AC-BRKFST Baclofen 5 mg PO BID Ketorolac 0.5% Ophth Soln [Acular 0.5%] 1 drop LEFT EYE TID traMADol HCl [Ultram] 50 mg PO Q6H PRN PRN Reason: Pain Amitriptyline HCl [Elavil] 10 mg PO HS Dapagliflozin Propanediol [Farxiga] 10 mg PO DAILY Latanoprost [Latanoprost 0.005%] 1 drop BOTH EYES HS Apixaban [Eliquis] 5 mg PO BID Discharge Medication List Dexlansoprazole [Dexilant] 60 mg PO DAILY 11/19/17 [History] Losartan [Cozaar] 25 mg PO DAILY 11/19/17 [History] Glimepiride [Amaryl] 1 mg PO AC-BRKFST 01/08/20 [History] Amitriptyline HCl [Elavil] 10 mg PO HS 08/23/24 [History] Apixaban [Eliquis] 5 mg PO BID 08/23/24 [History] Baclofen 5 mg PO BID 08/23/24 [History] Dapagliflozin Propanediol [Farxiga] 10 mg PO DAILY 08/23/24 [History] Ketorolac 0.5% Ophth Soln [Acular 0.5%] 1 drop LEFT EYE TID 08/23/24 [History] Latanoprost [Latanoprost 0.005%] 1 drop BOTH EYES HS 08/23/24 [History] traMADol HCl [Ultram] 50 mg PO Q6H PRN 08/23/24 [History] Aspirin 81 mg PO DAILY #30 tab 10/10/24 [Rx] Isosorbide Mononitrate ER [Imdur] 30 mg PO DAILY #30 tab 10/10/24 [Rx] Metoprolol Tartrate [Lopressor] 12.5 mg PO BID #60 tab 10/10/24 [Rx] Ranolazine [Ranexa] 500 mg PO Q12HR #60 tab 10/10/24 [Rx] Follow up Appointment(s)/Referral(s): Cristhian Palmer MD [Primary Care Provider] - 1-2 days Discharge Disposition: TRANSFER TO SNF/ECF
[2024-10-10 15:55] VITALS: BP 134/74; PULSE 82; RESP 18; TEMP 98.3
[2024-10-11] MEDS ORDERED: ASPIRIN 81 MG PO SCH (09:00)
== END 2024-10-10 16:06 | DRG 280 ==
LOC: EC 16:13 → 3SCARD 21:23
PROVIDERS: ADMIT Hospitalist; ATTEND Hospitalist
DX: I21.4 Non-ST elevation (NSTEMI) myocardial infarction (principal); I50.23 Acute on chronic systolic (congestive) heart failure; N39.0 Urinary tract infection, site not specified; I11.0 Hypertensive heart disease with heart failure; E11.9 Type 2 diabetes mellitus without complications; I48.91 Unspecified atrial fibrillation; I44.1 Atrioventricular block, second degree; Z99.81 Dependence on supplemental oxygen; Z95.3 Presence of xenogenic heart valve; J44.89 Other specified chronic obstructive pulmonary disease; I08.1 Rheumatic disorders of both mitral and tricuspid valves; I25.10 Atherosclerotic heart disease of native coronary artery without angina pectoris; E78.5 Hyperlipidemia, unspecified; R51.9 Headache, unspecified; K44.9 Diaphragmatic hernia without obstruction or gangrene; K29.70 Gastritis, unspecified, without bleeding; I49.3 Ventricular premature depolarization; H40.9 Unspecified glaucoma; Z79.01 Long term (current) use of anticoagulants; I25.2 Old myocardial infarction; Z95.5 Presence of coronary angioplasty implant and graft; Z82.49 Family history of ischemic heart disease and other diseases of the circulatory system; Z79.899 Other long term (current) drug therapy; Z79.84 Long term (current) use of oral hypoglycemic drugs; Z87.19 Personal history of other diseases of the digestive system
CPT/HCPCS: 36415; 71045; 71046; 80048; 80053; 80061; 81001; 83036; 83735; 83880; 84484; 85025; 85610; 85730; 93005; 93306; 96365; 96366; 99285